=== PATIENT | female | born 1970 | race African-American/Black ===

== ENCOUNTER 2019-06-06 01:15 | Inpatient (IN) | payer MEDICARE, MEDICAID ==
[~2019-06-06] VITALS: Ht 170.2 cm; Wt 112.9 kg
[~2019-06-06 01:15] MED LIST: BENA20TA77 PO; CALC-1 PO; ESIDRIX PO; MELO-106 PO; METO-539 PO; OXYC30TA89 PO; VITAMIN D PO
[2019-06-06] MEDS ORDERED: ONDANSETRON HCL 4MG/2ML INJ IV STA (02:01)
[2019-06-06] MEDS ORDERED: ALBUTEROL (0.083%) 2.5MG/3ML NEB HHN STA (02:01)
[2019-06-06] MEDS ORDERED: IPRATROPIUM BROMIDE (0.02%) 0.5MG/2.5ML NEB HHN STA (02:01)
[2019-06-06] MEDS ORDERED: ASPIRIN 81MG TABLET PO ONE (02:15)
[2019-06-06] MEDS ORDERED: FUROSEMIDE 40MG/4ML VIAL IV ONE (02:15)
[2019-06-06] MEDS ORDERED: NITROGLYCERIN OINT 1GM/INCH UDPKT TD ONE (02:15)
[2019-06-06] MEDS ORDERED: ENALAPRIL 2.5MG/2ML VIAL 2ML IV ONE (02:15)
[2019-06-06 02:23] LABS: BASOPHILS % 1.1 % (0.0-2.0); EOSINOPHILS % 1.8 % (0.0-5.0); HEMATOCRIT. 42.2 % (36.0-48.0); HEMOGLOBIN. 14.2 g/dL (12.0-16.0); LYMPHOCYTES % 24.8 % (20.0-50.0); MEAN CORPUSCULAR HEMOGLOBIN 29.5 pg (28.0-32.0); MEAN CORPUSCULAR VOLUME 87.7 fL (81.0-99.0); MEAN PLATELET VOLUME 8.9 fl (7.4-10.4); MONOCYTES % 7.7 % (2.0-8.0); NEUTROPHILS % 64.6 % (40.0-76.0); PLATELET 258 x1000/uL (130-400); RED BLOOD CELL COUNT 4.81 mill/uL (4.2-5.4); RED CELL DISTRIBUTION WIDTH 14.8 % (11.6-14.6)
[2019-06-06 02:29] LABS: CHLORIDE 107 mEq/L (98-107)
[2019-06-06] MEDS ORDERED: IPRATROPIUM/ALBUTEROL 0.5-3(2.5)MG/3ML NEB INH PRN (06:00)
[2019-06-06] MEDS ORDERED: MAGNESIUM/ALUMINUM HYDROXIDE/SIMETHICONE 30ML UDC PO PRN (06:00)
[2019-06-06] MEDS ORDERED: ONDANSETRON HCL 4MG/2ML INJ IV PRN (06:00)
[2019-06-06] MEDS ORDERED: HYDRALAZINE 20MG/ML VIAL IV PRN (06:00)
[2019-06-06] MEDS ORDERED: GUAIFENESIN 200MG/10ML SUGAR FREE UDC PO PRN (06:00)
[2019-06-06] MEDS ORDERED: DIPHENHYDRAMINE 50MG/ML VIAL IV PRN (06:00)
[2019-06-06] MEDS: ACETAMINOPHEN 325MG TABLET PO PRN (06:52)
[2019-06-06] MEDS: CLONIDINE 0.1MG TABLET PO PRN (07:38)
[2019-06-06 08:00] VITALS: BP 132/78
[2019-06-06] MEDS: LISINOPRIL 10MG TABLET PO SCH ×2 (09:55→21:14)
[2019-06-06] MEDS: AMLODIPINE 5MG TABLET PO SCH ×2 (09:55→21:13)
[2019-06-06] MEDS: FUROSEMIDE 40MG/4ML VIAL IVP SCH (09:56)
[2019-06-06] MEDS: ENOXAPARIN 40MG/0.4ML SYR SUBCUT SCH ×2 (09:56→21:14)
[2019-06-06] MEDS: SODIUM CHLORIDE 0.9% INJ 3ML FLUSH IVF SCH ×3 (09:57→21:14)
[2019-06-06 12:12] VITALS: BP 132/78
[2019-06-06 13:40] LABS: T4 FREE 0.88 ng/dL (0.76-1.46)
[2019-06-06 14:00] LABS: *AMPHETAMINES SCREEN URINE NEGATIVE (NEGATIVE); *BARBITURATES SCREEN URINE NEGATIVE (NEGATIVE); *BENZODIAZEPINES SCREEN URINE NEGATIVE (NEGATIVE); *COCAINE SCREEN URINE NEGATIVE (NEGATIVE)
[2019-06-06 14:01] LABS: CANNABINOID URINE SCREEN NEGATIVE (NEGATIVE); METHADONE URINE SCREEN NEGATIVE (NEGATIVE); OPIATES URINE SCREEN NEGATIVE (NEGATIVE); PHENCYCLIDINE URINE SCREEN NEGATIVE (NEGATIVE)
[2019-06-06 16:00] VITALS: BP 157/89
[2019-06-06 16:31] LABS: CREATINE KINASE MB FRACTION 2.7 ng/mL (0.5-3.6)
[2019-06-06] MEDS ORDERED: DEXTROSE 50% WATER 50ML SYRINGE IV PRN (17:00)
[2019-06-06] MEDS: INSULIN LISPRO 100 UNITS/ML SUBCUT SCH ×2 (17:15→20:55)
[2019-06-06 20:00] VITALS: BP 133/70
[2019-06-06] MEDS: BLOOD SUGAR DIAGNOSTIC STRIP TEST SCH (20:55)
[2019-06-06] MEDS: METHYLPREDNISOLONE SOD SUCC 40 MG/ML VIAL IV SCH (21:14)
[2019-06-06] MEDS: IPRATROPIUM/ALBUTEROL 0.5-3(2.5)MG/3ML NEB HHN SCH (22:40)
[2019-06-07] VITALS (7 sets, daily range): BP systolic 134–160; BP diastolic 71–95
[2019-06-07] MEDS: IPRATROPIUM/ALBUTEROL 0.5-3(2.5)MG/3ML NEB HHN SCH ×4 (00:30→21:00)
[2019-06-07 00:51] LABS: CREATINE KINASE MB FRACTION 2.3 ng/mL (0.5-3.6)
[2019-06-07] MEDS: CLONIDINE 0.1MG TABLET PO PRN (01:01)
[2019-06-07] MEDS: BLOOD SUGAR DIAGNOSTIC STRIP TEST SCH ×4 (07:21→21:20)
[2019-06-07] MEDS: METHYLPREDNISOLONE SOD SUCC 40 MG/ML VIAL IV SCH (07:25)
[2019-06-07] MEDS: SODIUM CHLORIDE 0.9% INJ 3ML FLUSH IVF SCH ×3 (07:27→23:07)
[2019-06-07] MEDS: INSULIN LISPRO 100 UNITS/ML SUBCUT SCH ×5 (07:27→21:28)
[2019-06-07] MEDS: ENOXAPARIN 40MG/0.4ML SYR SUBCUT SCH ×2 (09:11→23:07)
[2019-06-07] MEDS: LISINOPRIL 10MG TABLET PO SCH ×2 (09:12→21:22)
[2019-06-07] MEDS: AMLODIPINE 5MG TABLET PO SCH ×2 (09:12→21:21)
[2019-06-07] MEDS: FUROSEMIDE 40MG/4ML VIAL IVP SCH (09:13)
[2019-06-07 09:14] LABS: CREATINE KINASE MB FRACTION 2.4 ng/mL (0.5-3.6)
[2019-06-07] MEDS ORDERED: BENA20TA10 MT (13:40)
[2019-06-07] MEDS ORDERED: BUDE90AE INH (13:41)
[2019-06-07] MEDS ORDERED: ALBU18HF2 IH (13:43)
[2019-06-07] MEDS: ACETAMINOPHEN 325MG TABLET PO PRN (21:22)
[2019-06-07] MEDS ORDERED: KETOROLAC 30MG/ML VIAL IV PRN (22:45)
[2019-06-08] MEDS: IPRATROPIUM/ALBUTEROL 0.5-3(2.5)MG/3ML NEB HHN SCH ×2 (02:00→13:17)
[2019-06-08 04:09] VITALS: BP 151/88
[2019-06-08] MEDS: BLOOD SUGAR DIAGNOSTIC STRIP TEST SCH ×2 (06:31→11:45)
[2019-06-08] MEDS: SODIUM CHLORIDE 0.9% INJ 3ML FLUSH IVF SCH (06:32)
[2019-06-08] MEDS: INSULIN LISPRO 100 UNITS/ML SUBCUT SCH ×2 (06:32→13:25)
[2019-06-08] MEDS ORDERED: REGADENOSON 0.4 MG/5 ML IV ONE ×2 (07:30→10:23)
[2019-06-08] MEDS: ENOXAPARIN 40MG/0.4ML SYR SUBCUT SCH (09:00)
[2019-06-08] MEDS: LISINOPRIL 10MG TABLET PO SCH (09:00)
[2019-06-08] MEDS: AMLODIPINE 5MG TABLET PO SCH (09:00)
[2019-06-08 16:07] VITALS: BP 144/67
== END 2019-06-08 17:20 | disposition home or self-care (01) | DRG 291 ==
LOC: ER 01:15 → 5WST 04:24 → EDBEDREQ 04:27 → EDBEDREQTM 04:27 → ENRESERV 07:02 → 5WST 08:43
PROVIDERS: ADMIT Internal Medicine; ATTEND Internal Medicine
DX: I11.0 Hypertensive heart disease with heart failure (principal); J96.01 Acute respiratory failure with hypoxia; J84.9 Interstitial pulmonary disease, unspecified; M94.0 Chondrocostal junction syndrome [Tietze]; E66.01 Morbid (severe) obesity due to excess calories; I50.33 Acute on chronic diastolic (congestive) heart failure; E78.5 Hyperlipidemia, unspecified; Z87.891 Personal history of nicotine dependence; M19.90 Unspecified osteoarthritis, unspecified site; J45.909 Unspecified asthma, uncomplicated; I25.10 Atherosclerotic heart disease of native coronary artery without angina pectoris; E11.9 Type 2 diabetes mellitus without complications; J20.9 Acute bronchitis, unspecified; J42 Unspecified chronic bronchitis; Z96.651 Presence of right artificial knee joint; Z68.39 Body mass index [BMI] 39.0-39.9, adult; Z80.1 Family history of malignant neoplasm of trachea, bronchus and lung; Z82.0 Family history of epilepsy and other diseases of the nervous system; Z82.49 Family history of ischemic heart disease and other diseases of the circulatory system; Z83.3 Family history of diabetes mellitus; Z98.891 History of uterine scar from previous surgery; Z79.899 Other long term (current) drug therapy
CPT/HCPCS: 36415; 71045; 78452; 80061; 80305; 82550; 82553; 82962; 83036; 83880; 84439; 84443; 84484; 85379; 93005; 93017; 93306; 93970; 94640; 96374; 96375; 97162; 99291; A9500; J1650; J1815; J1885; J1940; J2405; J2785; J2920; J3490; J7611; J7620

== ENCOUNTER 2019-06-24 15:03 | Inpatient (IN) | payer MEDICARE, MEDICAID ==
[~2019-06-24] VITALS: Ht 157.5 cm; Wt 112.5 kg
[~2019-06-24 15:03] MED LIST changes: +ALBU18HF2 IH; +BENA20TA10 MT; -BENA20TA77 PO; +BUDE90AE INH; -CALC-1 PO; -ESIDRIX PO; -MELO-106 PO; -OXYC30TA89 PO; -VITAMIN D PO
[2019-06-24] MEDS ORDERED: PREDNISONE 20MG TABLET PO STA (15:31)
[2019-06-24] MEDS ORDERED: IPRATROPIUM BROMIDE (0.02%) 0.5MG/2.5ML NEB HHN STA (15:31)
[2019-06-24] MEDS ORDERED: METHYLPREDNISOLONE SOD SUCC 125 MG/2 ML VIAL IV ONE (15:45)
[2019-06-24] MEDS ORDERED: ALBUTEROL (0.083%) 2.5MG/3ML NEB HHN SCH (16:00)
[2019-06-24 16:15] LABS: BASOPHILS % 1.5 % (0.0-2.0); EOSINOPHILS % 4.3 % (0.0-5.0); HEMATOCRIT. 38.5 % (36.0-48.0); HEMOGLOBIN. 12.8 g/dL (12.0-16.0); LYMPHOCYTES % 31.3 % (20.0-50.0); MEAN CORPUSCULAR HEMOGLOBIN 29.1 pg (28.0-32.0); MEAN CORPUSCULAR VOLUME 87.8 fL (81.0-99.0); MEAN PLATELET VOLUME 8.9 fl (7.4-10.4); MONOCYTES % 10.6 % (2.0-8.0); NEUTROPHILS % 52.3 % (40.0-76.0); PLATELET 254 x1000/uL (130-400); RED BLOOD CELL COUNT 4.39 mill/uL (4.2-5.4); RED CELL DISTRIBUTION WIDTH 14.6 % (11.6-14.6)
[2019-06-24 16:20] LABS: CHLORIDE 111 mEq/L (98-107)
[2019-06-24] MEDS ORDERED: ACETAMINOPHEN 325MG TABLET PO PRN (16:45)
[2019-06-24] MEDS ORDERED: GUAIFENESIN 200MG/10ML SUGAR FREE UDC PO PRN (16:45)
[2019-06-24] MEDS ORDERED: DOCUSATE SODIUM 100MG CAPSULE PO PRN (16:45)
[2019-06-24] MEDS ORDERED: ONDANSETRON HCL 4MG/2ML INJ IV PRN (16:45)
[2019-06-24] MEDS ORDERED: DIPHENHYDRAMINE 50MG/ML VIAL IV PRN (16:45)
[2019-06-24] MEDS ORDERED: IPRATROPIUM/ALBUTEROL 0.5-3(2.5)MG/3ML NEB INH PRN (16:45)
[2019-06-24] MEDS ORDERED: MAGNESIUM/ALUMINUM HYDROXIDE/SIMETHICONE 30ML UDC PO PRN (16:45)
[2019-06-24 17:11] LABS: PHOSPHORUS 2.4 mg/dL (2.5-4.9)
[2019-06-24] MEDS: CLONIDINE 0.1MG TABLET PO PRN (17:56)
[2019-06-24 18:55] VITALS: BP 109/91
[2019-06-24 20:00] VITALS: BP 181/90
[2019-06-24] MEDS ORDERED: DEXTROSE 50% WATER 50ML SYRINGE IV PRN (20:15)
[2019-06-24] MEDS: ENOXAPARIN 30MG/0.3ML SYR SUBCUT SCH (21:00)
[2019-06-24] MEDS: INSULIN LISPRO 100 UNITS/ML SUBCUT SCH (21:00)
[2019-06-24] MEDS: BLOOD SUGAR DIAGNOSTIC STRIP TEST SCH (21:17)
[2019-06-24 22:11] VITALS: BP 109/81
[2019-06-25] VITALS (7 sets, daily range): BP systolic 142–201; BP diastolic 75–101
[2019-06-25 00:17] LABS: CREATINE KINASE MB FRACTION 1.8 ng/mL (0.5-3.6)
[2019-06-25] MEDS: BLOOD SUGAR DIAGNOSTIC STRIP TEST SCH ×4 (06:27→20:44)
[2019-06-25 06:30] LABS: BASOPHILS % 0.1 % (0.0-2.0); HEMATOCRIT. 39.8 % (36.0-48.0); HEMOGLOBIN. 13.3 g/dL (12.0-16.0); LYMPHOCYTES % 8.9 % (20.0-50.0); MEAN CORPUSCULAR HEMOGLOBIN 29.3 pg (28.0-32.0); MEAN CORPUSCULAR VOLUME 87.7 fL (81.0-99.0); MEAN PLATELET VOLUME 9.4 fl (7.4-10.4); MONOCYTES % 2.2 % (2.0-8.0); NEUTROPHILS % 88.8 % (40.0-76.0); PLATELET 296 x1000/uL (130-400); RED BLOOD CELL COUNT 4.54 mill/uL (4.2-5.4); RED CELL DISTRIBUTION WIDTH 14.6 % (11.6-14.6)
[2019-06-25] MEDS: INSULIN LISPRO 100 UNITS/ML SUBCUT SCH ×4 (06:42→20:43)
[2019-06-25] MEDS: HYDROCODONE/ACETAMINOPHEN 5/325MG TABLET PO PRN ×2 (06:59→11:34)
[2019-06-25 07:08] LABS: CHLORIDE 106 mEq/L (98-107)
[2019-06-25 07:17] LABS: LDL CHOLESTEROL 123 mg/dL (5-100)
[2019-06-25 07:20] LABS: CREATINE KINASE 159 IU/L (26-192)
[2019-06-25 07:21] LABS: HDL CHOLESTEROL 59 mg/dL (40-59)
[2019-06-25 07:23] LABS: CREATINE KINASE MB FRACTION 2.1 ng/mL (0.5-3.6)
[2019-06-25] MEDS: CLONIDINE 0.1MG TABLET PO PRN ×2 (08:16→17:56)
[2019-06-25] MEDS: FUROSEMIDE 40MG/4ML VIAL IV SCH (08:17)
[2019-06-25] MEDS: ENOXAPARIN 30MG/0.3ML SYR SUBCUT SCH ×2 (08:17→20:44)
[2019-06-25] MEDS: GUAIFENESIN 600MG ER TABLET PO SCH ×2 (13:11→20:42)
[2019-06-25] MEDS: BUDESONIDE 0.5MG/2ML NEB HHN SCH (19:49)
[2019-06-25] MEDS: IPRATROPIUM/ALBUTEROL 0.5-3(2.5)MG/3ML NEB HHN PRN (19:49)
[2019-06-26] VITALS: BP 156/78
[2019-06-26 04:00] VITALS: BP 151/89
[2019-06-26] MEDS: INSULIN LISPRO 100 UNITS/ML SUBCUT SCH ×4 (06:18→21:46)
[2019-06-26] MEDS: BLOOD SUGAR DIAGNOSTIC STRIP TEST SCH ×4 (06:18→21:47)
[2019-06-26 07:27] LABS: BASOPHILS % 0.7 % (0.0-2.0); EOSINOPHILS % 1.1 % (0.0-5.0); HEMATOCRIT. 38.9 % (36.0-48.0); HEMOGLOBIN. 13.1 g/dL (12.0-16.0); LYMPHOCYTES % 27.5 % (20.0-50.0); MEAN CORPUSCULAR HEMOGLOBIN 29.4 pg (28.0-32.0); MEAN CORPUSCULAR VOLUME 87.6 fL (81.0-99.0); MEAN PLATELET VOLUME 9.2 fl (7.4-10.4); MONOCYTES % 7.2 % (2.0-8.0); NEUTROPHILS % 63.5 % (40.0-76.0); PLATELET 282 x1000/uL (130-400); RED BLOOD CELL COUNT 4.45 mill/uL (4.2-5.4); RED CELL DISTRIBUTION WIDTH 14.6 % (11.6-14.6)
[2019-06-26 07:30] LABS: CHLORIDE 108 mEq/L (98-107)
[2019-06-26 08:00] VITALS: BP 148/70
[2019-06-26] MEDS: BUDESONIDE 0.5MG/2ML NEB HHN SCH (08:46)
[2019-06-26] MEDS: ENOXAPARIN 30MG/0.3ML SYR SUBCUT SCH ×2 (09:00→21:44)
[2019-06-26] MEDS: GUAIFENESIN 600MG ER TABLET PO SCH ×2 (09:30→21:44)
[2019-06-26] MEDS: FUROSEMIDE 40MG/4ML VIAL IV SCH (09:30)
[2019-06-26] MEDS: HYDROCODONE/ACETAMINOPHEN 5/325MG TABLET PO PRN ×2 (11:09→17:10)
[2019-06-26 12:00] VITALS: BP 155/74
[2019-06-26] MEDS: VERAPAMIL HCL 80 MG TABLET PO SCH ×2 (14:40→21:44)
[2019-06-26 16:00] VITALS: BP 156/83
[2019-06-26 16:30] LABS: CLARITY URINE CLEAR (CLEAR); COLOR URINE YELLOW (YELLOW); KETONES URINE NEGATIVE (NEGATIVE); LEUKOCYTE ESTERASE URINE NEGATIVE (NEGATIVE); NITRITE URINE NEGATIVE (NEGATIVE); OCCULT BLOOD URINE NEGATIVE (NEGATIVE); PROTEIN URINE NEGATIVE (NEGATIVE); SPECIFIC GRAVITY URINE 1.007 (1.005-1.030); UROBILINOGEN URINE 0.2 E.U./dL (0.2-1.0)
[2019-06-26 16:55] LABS: *AMPHETAMINES SCREEN URINE NEGATIVE (NEGATIVE); *BARBITURATES SCREEN URINE NEGATIVE (NEGATIVE); *BENZODIAZEPINES SCREEN URINE NEGATIVE (NEGATIVE); *COCAINE SCREEN URINE NEGATIVE (NEGATIVE); METHADONE URINE SCREEN NEGATIVE (NEGATIVE); OPIATES URINE SCREEN PRESUMTIVE POSITIVE (NEGATIVE)
[2019-06-26 16:56] LABS: CANNABINOID URINE SCREEN NEGATIVE (NEGATIVE); PHENCYCLIDINE URINE SCREEN NEGATIVE (NEGATIVE)
[2019-06-26] MEDS: METHYLPREDNISOLONE SOD SUCC 40 MG/ML VIAL IV SCH (17:09)
[2019-06-26 19:32] LABS: CREATINE KINASE MB FRACTION 1.2 ng/mL (0.5-3.6)
[2019-06-26 20:00] VITALS: BP 165/99
[2019-06-26] MEDS: CLONIDINE 0.1MG TABLET PO PRN (21:44)
[2019-06-27] VITALS: BP 125/61
[2019-06-27] MEDS: METHYLPREDNISOLONE SOD SUCC 40 MG/ML VIAL IV SCH ×2 (00:29→08:08)
[2019-06-27 04:00] VITALS: BP 157/91
[2019-06-27] MEDS: BLOOD SUGAR DIAGNOSTIC STRIP TEST SCH ×3 (06:32→20:28)
[2019-06-27] MEDS: VERAPAMIL HCL 80 MG TABLET PO SCH (06:32)
[2019-06-27] MEDS: INSULIN LISPRO 100 UNITS/ML SUBCUT SCH ×4 (06:35→21:25)
[2019-06-27 06:38] LABS: BASOPHILS % 0.3 % (0.0-2.0); HEMATOCRIT. 42.9 % (36.0-48.0); HEMOGLOBIN. 14.6 g/dL (12.0-16.0); MEAN CORPUSCULAR HEMOGLOBIN 29.6 pg (28.0-32.0); MEAN CORPUSCULAR VOLUME 86.8 fL (81.0-99.0); MEAN PLATELET VOLUME 8.9 fl (7.4-10.4); MONOCYTES % 1.7 % (2.0-8.0); PLATELET 331 x1000/uL (130-400); RED BLOOD CELL COUNT 4.94 mill/uL (4.2-5.4); RED CELL DISTRIBUTION WIDTH 14.2 % (11.6-14.6)
[2019-06-27 07:27] LABS: CHLORIDE 104 mEq/L (98-107)
[2019-06-27 08:00] VITALS: BP 150/87
[2019-06-27] MEDS: GUAIFENESIN 600MG ER TABLET PO SCH ×2 (08:20→21:24)
[2019-06-27] MEDS: FUROSEMIDE 40MG/4ML VIAL IV SCH (08:21)
[2019-06-27] MEDS: ENOXAPARIN 30MG/0.3ML SYR SUBCUT SCH ×2 (08:21→21:23)
[2019-06-27 12:00] VITALS: BP 167/89
[2019-06-27] MEDS: CLONIDINE 0.1MG TABLET PO PRN ×2 (12:02→17:50)
[2019-06-27] MEDS: VERAPAMIL HCL 120MG TABLET PO SCH ×2 (13:29→21:24)
[2019-06-27 16:00] VITALS: BP 173/91
[2019-06-27] MEDS: HYDROCODONE/ACETAMINOPHEN 5/325MG TABLET PO PRN ×2 (17:02→23:05)
[2019-06-27] MEDS ORDERED: DEXTROSE 50% WATER 50ML SYRINGE IV PRN (17:15)
[2019-06-27 20:00] VITALS: BP 153/61
[2019-06-27] MEDS ORDERED: BLOOD SUGAR DIAGNOSTIC STRIP TEST SCH (21:00)
[2019-06-28] VITALS: BP 164/86
[2019-06-28 04:00] VITALS: BP 137/72
[2019-06-28 06:25] LABS: CHLORIDE 105 mEq/L (98-107)
[2019-06-28 06:33] LABS: BASOPHILS % 0.2 % (0.0-2.0); HEMATOCRIT. 42.5 % (36.0-48.0); HEMOGLOBIN. 14.2 g/dL (12.0-16.0); LYMPHOCYTES % 7.5 % (20.0-50.0); MEAN CORPUSCULAR VOLUME 86.8 fL (81.0-99.0); MEAN PLATELET VOLUME 9.2 fl (7.4-10.4); MONOCYTES % 8.7 % (2.0-8.0); NEUTROPHILS % 83.6 % (40.0-76.0); PLATELET 326 x1000/uL (130-400); RED CELL DISTRIBUTION WIDTH 14.2 % (11.6-14.6)
[2019-06-28] MEDS: BLOOD SUGAR DIAGNOSTIC STRIP TEST SCH ×2 (06:33→11:45)
[2019-06-28] MEDS: VERAPAMIL HCL 120MG TABLET PO SCH ×2 (06:42→14:16)
[2019-06-28] MEDS: HYDROCODONE/ACETAMINOPHEN 5/325MG TABLET PO PRN (06:42)
[2019-06-28] MEDS: INSULIN LISPRO 100 UNITS/ML SUBCUT SCH ×2 (06:47→12:15)
[2019-06-28 08:00] VITALS: BP 126/59
[2019-06-28] MEDS: FUROSEMIDE 40MG/4ML VIAL IV SCH (08:58)
[2019-06-28] MEDS: ENOXAPARIN 30MG/0.3ML SYR SUBCUT SCH (08:59)
[2019-06-28] MEDS: GUAIFENESIN 600MG ER TABLET PO SCH (08:59)
[2019-06-28] MEDS ORDERED: METHYLPREDNISOLONE SOD SUCC 40 MG/ML VIAL IV SCH (09:00)
[2019-06-28] MEDS: IPRATROPIUM/ALBUTEROL 0.5-3(2.5)MG/3ML NEB HHN PRN (11:24)
[2019-06-28 12:00] VITALS: BP 143/78
[2019-06-28 13:51] VITALS: BP 143/78
[2019-06-28 14:00] VITALS: BP 143/70
== END 2019-06-28 16:46 | disposition home or self-care (01) | DRG 189 ==
LOC: ER 15:03 → 5WST 16:24 → EDBEDREQ 16:27 → ENRESERV 17:48 → 5WST 19:09
PROVIDERS: ADMIT Internal Medicine; ATTEND Internal Medicine
DX: J96.00 Acute respiratory failure, unspecified whether with hypoxia or hypercapnia (principal); I50.33 Acute on chronic diastolic (congestive) heart failure; J44.1 Chronic obstructive pulmonary disease with (acute) exacerbation; Z68.42 Body mass index [BMI] 45.0-49.9, adult; I11.0 Hypertensive heart disease with heart failure; I27.20 Pulmonary hypertension, unspecified; E66.01 Morbid (severe) obesity due to excess calories; F17.210 Nicotine dependence, cigarettes, uncomplicated; M19.90 Unspecified osteoarthritis, unspecified site; F12.90 Cannabis use, unspecified, uncomplicated; I25.10 Atherosclerotic heart disease of native coronary artery without angina pectoris; J40 Bronchitis, not specified as acute or chronic; F14.90 Cocaine use, unspecified, uncomplicated; E11.65 Type 2 diabetes mellitus with hyperglycemia; K76.1 Chronic passive congestion of liver; Z79.51 Long term (current) use of inhaled steroids; Z79.899 Other long term (current) drug therapy; Z98.891 History of uterine scar from previous surgery
CPT/HCPCS: 36415; 71045; 80048; 80061; 80305; 82550; 82553; 82962; 83036; 83735; 83880; 84100; 84443; 84484; 85379; 93005; 93970; 94640; 96374; 97162; 97166; 97530; 97535; 99285; J1650; J1815; J1940; J2920; J2930; J7620; J7626

== ENCOUNTER 2019-08-13 18:41 | Inpatient (IN) | payer MEDICARE, MEDICAID ==
[~2019-08-13] VITALS: Ht 170.2 cm; Wt 117.5 kg
[2019-08-13] MEDS ORDERED: METHYLPREDNISOLONE SOD SUCC 125 MG/2 ML VIAL IV STA (19:21)
[2019-08-13] MEDS ORDERED: IPRATROPIUM BROMIDE (0.02%) 0.5MG/2.5ML NEB HHN STA (19:21)
[2019-08-13] MEDS ORDERED: ALBUTEROL (0.083%) 2.5MG/3ML NEB HHN STA (19:21)
[2019-08-13 19:56] LABS: BASOPHILS % 1.5 % (0.0-2.0); EOSINOPHILS % 3.1 % (0.0-5.0); HEMATOCRIT. 46.4 % (36.0-48.0); HEMOGLOBIN. 15.8 g/dL (12.0-16.0); MEAN CORPUSCULAR HEMOGLOBIN 29.6 pg (28.0-32.0); MEAN PLATELET VOLUME 8.5 fl (7.4-10.4); MONOCYTES % 10.1 % (2.0-8.0); NEUTROPHILS % 46.3 % (40.0-76.0); PLATELET 274 x1000/uL (130-400); RED BLOOD CELL COUNT 5.33 mill/uL (4.2-5.4)
[2019-08-13 20:01] LABS: CHLORIDE 105 mEq/L (98-107)
[2019-08-13] MEDS ORDERED: NITROGLYCERIN OINT 1GM/INCH UDPKT TD ONE (20:45)
[2019-08-13] MEDS ORDERED: GUAIFENESIN 200MG/10ML SUGAR FREE UDC PO PRN (22:15)
[2019-08-13] MEDS ORDERED: MAGNESIUM/ALUMINUM HYDROXIDE/SIMETHICONE 30ML UDC PO PRN (22:15)
[2019-08-13] MEDS ORDERED: IPRATROPIUM/ALBUTEROL 0.5-3(2.5)MG/3ML NEB HHN PRN (22:15)
[2019-08-13] MEDS ORDERED: ONDANSETRON HCL 4MG/2ML INJ IV PRN (22:15)
[2019-08-13] MEDS ORDERED: ACETAMINOPHEN 325MG TABLET PO PRN (22:15)
[2019-08-13] MEDS ORDERED: NA PHOS,M-B/NA PHOS,DI-BA ENEMA 118ML PR PRN (22:15)
[2019-08-13] MEDS ORDERED: DOCUSATE SODIUM 100MG CAPSULE PO PRN (22:15)
[2019-08-13] MEDS ORDERED: LORAZEPAM 2MG/ML CPJ IV PRN (22:15)
[2019-08-13] MEDS ORDERED: DIPHENHYDRAMINE 50MG/ML VIAL IV PRN (22:15)
[2019-08-13] MEDS ORDERED: HYDRALAZINE 20MG/ML VIAL IV PRN (22:29)
[2019-08-13] MEDS ORDERED: MORPHINE SULFATE 2 MG/ML CPJ (NOT FOR IM USE) IV PRN (22:35)
[2019-08-13 23:59] VITALS: BP 174/96
[2019-08-14] MEDS: CLONIDINE 0.1MG TABLET PO PRN (00:52)
[2019-08-14 04:00] VITALS: BP 162/84
[2019-08-14] MEDS ORDERED: HYDRALAZINE 20MG/ML VIAL IV PRN (04:30)
[2019-08-14] MEDS: METHYLPREDNISOLONE SOD SUCC 125 MG/2 ML VIAL IV SCH ×2 (06:17→13:58)
[2019-08-14] MEDS: SODIUM CHLORIDE 0.9% INJ 3ML FLUSH IVF SCH ×3 (06:18→21:04)
[2019-08-14 06:20] LABS: BASOPHILS % 0.2 % (0.0-2.0); HEMATOCRIT. 43.8 % (36.0-48.0); HEMOGLOBIN. 14.8 g/dL (12.0-16.0); LYMPHOCYTES % 10.6 % (20.0-50.0); MEAN CORPUSCULAR HEMOGLOBIN 29.3 pg (28.0-32.0); MEAN CORPUSCULAR VOLUME 86.8 fL (81.0-99.0); MEAN PLATELET VOLUME 9.1 fl (7.4-10.4); MONOCYTES % 0.8 % (2.0-8.0); NEUTROPHILS % 88.4 % (40.0-76.0); PLATELET 271 x1000/uL (130-400); RED BLOOD CELL COUNT 5.04 mill/uL (4.2-5.4); RED CELL DISTRIBUTION WIDTH 15.1 % (11.6-14.6)
[2019-08-14 06:24] LABS: CHLORIDE 103 mEq/L (98-107)
[2019-08-14 06:38] LABS: CREATINE KINASE MB FRACTION < 1.0 ng/mL (0.5-3.6)
[2019-08-14 06:39] LABS: T4 FREE 0.95 ng/dL (0.76-1.46)
[2019-08-14 06:41] LABS: CREATINE KINASE 120 IU/L (26-192); LDL CHOLESTEROL 126 mg/dL (5-100)
[2019-08-14 06:42] LABS: HDL CHOLESTEROL 54 mg/dL (40-59)
[2019-08-14 08:00] VITALS: BP 151/75
[2019-08-14] MEDS: ENOXAPARIN 30MG/0.3ML SYR SUBCUT SCH ×2 (11:09→20:22)
[2019-08-14] MEDS: HYDROCODONE/ACETAMINOPHEN 10/325MG TABLET PO PRN ×2 (11:20→20:21)
[2019-08-14 12:00] VITALS: BP 178/83
[2019-08-14] MEDS: IPRATROPIUM/ALBUTEROL 0.5-3(2.5)MG/3ML NEB HHN SCH ×2 (15:14→20:49)
[2019-08-14 16:00] VITALS: BP 165/85
[2019-08-14 18:18] LABS: CREATINE KINASE 88 IU/L (26-192)
[2019-08-14 20:00] VITALS: BP 197/109
[2019-08-14] MEDS: PREDNISONE 20MG TABLET PO SCH (20:08)
[2019-08-14] MEDS: METOPROLOL TARTRATE 50MG TABLET PO SCH (20:21)
[2019-08-14] MEDS: HYDRALAZINE HCL 50MG TABLET PO SCH (21:03)
[2019-08-14 21:06] LABS: T4 FREE 0.82 ng/dL (0.76-1.46)
[2019-08-15] VITALS: BP 150/74
[2019-08-15] MEDS: IPRATROPIUM/ALBUTEROL 0.5-3(2.5)MG/3ML NEB HHN SCH ×5 (01:04→17:03)
[2019-08-15 04:00] VITALS: BP 160/87
[2019-08-15] MEDS: SODIUM CHLORIDE 0.9% INJ 3ML FLUSH IVF SCH ×2 (05:57→13:20)
[2019-08-15] MEDS: HYDRALAZINE HCL 50MG TABLET PO SCH ×2 (05:57→15:02)
[2019-08-15 08:00] VITALS: BP 169/87
[2019-08-15] MEDS: PREDNISONE 20MG TABLET PO SCH ×3 (09:31→18:43)
[2019-08-15] MEDS: ENOXAPARIN 30MG/0.3ML SYR SUBCUT SCH (09:31)
[2019-08-15] MEDS: METOPROLOL TARTRATE 50MG TABLET PO SCH (09:33)
[2019-08-15 12:00] VITALS: BP 177/95
[2019-08-15] MEDS: HYDROCODONE/ACETAMINOPHEN 10/325MG TABLET PO PRN ×2 (13:12→17:23)
[2019-08-15] MEDS: CLONIDINE 0.1MG TABLET PO PRN (13:22)
[2019-08-15 16:00] VITALS: BP 155/93
[2019-08-15 19:07] VITALS: BP 155/93
== END 2019-08-15 20:05 | disposition home or self-care (01) | DRG 189 ==
LOC: ER 18:44 → 7WST 21:35 → EDBEDREQ 21:38 → EDBEDREQTM 21:38 → ENRESERV 21:59 → 7WST 08-14 00:40
PROVIDERS: ADMIT Internal Medicine; ATTEND Internal Medicine
DX: J96.00 Acute respiratory failure, unspecified whether with hypoxia or hypercapnia (principal); J44.1 Chronic obstructive pulmonary disease with (acute) exacerbation; I50.32 Chronic diastolic (congestive) heart failure; Z68.41 Body mass index [BMI] 40.0-44.9, adult; E66.01 Morbid (severe) obesity due to excess calories; E11.9 Type 2 diabetes mellitus without complications; F10.10 Alcohol abuse, uncomplicated; E78.5 Hyperlipidemia, unspecified; F17.210 Nicotine dependence, cigarettes, uncomplicated; K76.1 Chronic passive congestion of liver; I11.0 Hypertensive heart disease with heart failure; I25.10 Atherosclerotic heart disease of native coronary artery without angina pectoris; M19.90 Unspecified osteoarthritis, unspecified site; Z98.891 History of uterine scar from previous surgery; Z79.51 Long term (current) use of inhaled steroids; Z79.899 Other long term (current) drug therapy; Z71.6 Tobacco abuse counseling
CPT/HCPCS: 36415; 71045; 80061; 82550; 82553; 83036; 83880; 84439; 84443; 84484; 85379; 93005; 93306; 93970; 94640; 99285; J0360; J1650; J2930; J7512; J7611; J7620

== ENCOUNTER 2019-08-26 08:50 | Inpatient (IN) | payer MEDICARE, MEDICAID ==
[~2019-08-26] VITALS: Ht 170.2 cm; Wt 139.9 kg
[2019-08-26] MEDS ORDERED: IPRATROPIUM BROMIDE (0.02%) 0.5MG/2.5ML NEB HHN STA (09:29)
[2019-08-26] MEDS ORDERED: METHYLPREDNISOLONE SOD SUCC 125 MG/2 ML VIAL IV STA (09:29)
[2019-08-26] MEDS ORDERED: ALBUTEROL (0.083%) 2.5MG/3ML NEB HHN STA (09:29)
[2019-08-26] MEDS ORDERED: ASPIRIN 81MG TABLET PO ONE (09:30)
[2019-08-26 09:48] LABS: BASOPHILS % 0.5 % (0.0-2.0); EOSINOPHILS % 0.9 % (0.0-5.0); HEMATOCRIT. 41.1 % (36.0-48.0); HEMOGLOBIN. 13.6 g/dL (12.0-16.0); LYMPHOCYTES % 18.9 % (20.0-50.0); MEAN CORPUSCULAR HEMOGLOBIN 29.4 pg (28.0-32.0); MEAN CORPUSCULAR VOLUME 88.6 fL (81.0-99.0); MEAN PLATELET VOLUME 9.2 fl (7.4-10.4); MONOCYTES % 6.3 % (2.0-8.0); NEUTROPHILS % 73.4 % (40.0-76.0); PLATELET 239 x1000/uL (130-400); RED BLOOD CELL COUNT 4.63 mill/uL (4.2-5.4); RED CELL DISTRIBUTION WIDTH 15.4 % (11.6-14.6)
[2019-08-26 09:54] LABS: CHLORIDE 109 mEq/L (98-107)
[2019-08-26 09:57] LABS: PARTIAL THROMBOPLASTIN TIME 29.4 sec (23.4-31.0)
[2019-08-26] MEDS ORDERED: ACETAMINOPHEN 325MG TABLET PO ONE (10:15)
[2019-08-26] MEDS ORDERED: CLONIDINE 0.2MG TABLET PO ONE (10:15)
[2019-08-26] MEDS ORDERED: MORPHINE SULFATE 4 MG/ML CPJ (NOT FOR IM USE) IV STA (12:41)
[2019-08-26] MEDS ORDERED: ONDANSETRON HCL 4MG/2ML INJ IV STA (12:41)
[2019-08-26 16:00] VITALS: BP 163/78
[2019-08-26 16:25] VITALS: BP 163/78
[2019-08-26] MEDS ORDERED: ACETAMINOPHEN 325MG TABLET PO PRN (18:00)
[2019-08-26] MEDS ORDERED: ONDANSETRON HCL 4MG/2ML INJ IV PRN (18:00)
[2019-08-26] MEDS ORDERED: GUAIFENESIN 200MG/10ML SUGAR FREE UDC PO PRN (18:00)
[2019-08-26] MEDS ORDERED: LORAZEPAM 2MG/ML CPJ IV PRN (18:00)
[2019-08-26] MEDS ORDERED: DOCUSATE SODIUM 100MG CAPSULE PO PRN (18:00)
[2019-08-26] MEDS ORDERED: DIPHENHYDRAMINE 50MG/ML VIAL IV PRN (18:00)
[2019-08-26] MEDS ORDERED: MAGNESIUM/ALUMINUM HYDROXIDE/SIMETHICONE 30ML UDC PO PRN (18:00)
[2019-08-26] MEDS ORDERED: NA PHOS,M-B/NA PHOS,DI-BA ENEMA 118ML PR PRN (18:00)
[2019-08-26] MEDS: METHYLPREDNISOLONE SOD SUCC 125 MG/2 ML VIAL IV SCH (18:35)
[2019-08-26] MEDS: CLONIDINE 0.1MG TABLET PO PRN ×2 (18:36→20:09)
[2019-08-26] MEDS ORDERED: FURO-151 MT (18:49)
[2019-08-26 20:00] VITALS: BP 187/84
[2019-08-26 20:01] LABS: CHLORIDE 106 mEq/L (98-107)
[2019-08-26] MEDS: LEVOFLOXACIN 500MG PREMIX 100 ML IV SCH (20:08)
[2019-08-26] MEDS: ENOXAPARIN 40MG/0.4ML SYR SUBCUT SCH (20:09)
[2019-08-26] MEDS: MORPHINE SULFATE 2 MG/ML CPJ (NOT FOR IM USE) IV PRN (20:13)
[2019-08-26] MEDS: IPRATROPIUM/ALBUTEROL 0.5-3(2.5)MG/3ML NEB NEB PRN (20:38)
[2019-08-26 23:56] VITALS: BP 161/88
[2019-08-27] MEDS: IPRATROPIUM/ALBUTEROL 0.5-3(2.5)MG/3ML NEB NEB PRN (00:01)
[2019-08-27] MEDS ORDERED: DEXTROSE 50% WATER 50ML SYRINGE IV PRN (00:15)
[2019-08-27] MEDS: METHYLPREDNISOLONE SOD SUCC 125 MG/2 ML VIAL IV SCH ×3 (00:29→12:33)
[2019-08-27] MEDS: CLONIDINE 0.1MG TABLET PO PRN ×4 (00:35→17:48)
[2019-08-27 04:00] VITALS: BP 187/96
[2019-08-27] MEDS: BLOOD SUGAR DIAGNOSTIC STRIP TEST SCH ×4 (06:22→21:01)
[2019-08-27] MEDS: INSULIN LISPRO 100 UNITS/ML SUBCUT SCH ×4 (06:48→20:10)
[2019-08-27 07:08] LABS: HEMOGLOBIN. 12.8 g/dL (12.0-16.0); MEAN CORPUSCULAR HEMOGLOBIN 29.4 pg (28.0-32.0); MEAN CORPUSCULAR VOLUME 89.4 fL (81.0-99.0); MEAN PLATELET VOLUME 9.8 fl (7.4-10.4); PLATELET 234 x1000/uL (130-400); RED BLOOD CELL COUNT 4.37 mill/uL (4.2-5.4); RED CELL DISTRIBUTION WIDTH 15.6 % (11.6-14.6)
[2019-08-27 07:34] LABS: CHLORIDE 105 mEq/L (98-107)
[2019-08-27 07:43] LABS: LDL CHOLESTEROL 118 mg/dL (5-100)
[2019-08-27 07:44] LABS: HDL CHOLESTEROL 62 mg/dL (40-59)
[2019-08-27 08:00] VITALS: BP 178/89
[2019-08-27] MEDS: ENOXAPARIN 40MG/0.4ML SYR SUBCUT SCH ×2 (08:44→22:00)
[2019-08-27] MEDS: ASPIRIN 81MG EC TABLET PO SCH (08:44)
[2019-08-27] MEDS: HYDROCODONE/ACETAMINOPHEN 5/325MG TABLET PO PRN ×2 (10:20→14:14)
[2019-08-27 12:00] VITALS: BP 169/95
[2019-08-27] MEDS: FUROSEMIDE 40MG TABLET PO SCH (14:48)
[2019-08-27] MEDS: PREDNISONE 20MG TABLET PO SCH ×2 (14:48→21:58)
[2019-08-27] MEDS: MORPHINE SULFATE 2 MG/ML CPJ (NOT FOR IM USE) IV PRN ×2 (15:15→22:22)
[2019-08-27] MEDS: INSULIN GLARGINE UD 100 UNITS/ML SYR SUBCUT SCH (15:25)
[2019-08-27 16:00] VITALS: BP 180/92
[2019-08-27 16:07] LABS: PLATELET ESTIMATE NORMAL
[2019-08-27] MEDS: IPRATROPIUM/ALBUTEROL 0.5-3(2.5)MG/3ML NEB HHN SCH ×3 (16:13→23:45)
[2019-08-27 20:00] VITALS: BP 198/107
[2019-08-27] MEDS: LEVOFLOXACIN 500MG PREMIX 100 ML IV SCH (20:05)
[2019-08-27] MEDS ORDERED: CLONIDINE 0.3MG TABLET PO PRN (21:15)
[2019-08-27] MEDS ORDERED: INSULIN GLARGINE UD 100 UNITS/ML SYR SUBCUT SCH (22:30)
[2019-08-27] MEDS: HYDRALAZINE HCL 50MG TABLET PO SCH (22:57)
[2019-08-27] MEDS: METOPROLOL TARTRATE 50MG TABLET PO SCH (22:57)
[2019-08-28] VITALS: BP 179/91
[2019-08-28] MEDS: IPRATROPIUM/ALBUTEROL 0.5-3(2.5)MG/3ML NEB HHN SCH ×3 (03:59→12:28)
[2019-08-28 04:21] VITALS: BP 183/107
[2019-08-28] MEDS: HYDROCODONE/ACETAMINOPHEN 5/325MG TABLET PO PRN (06:12)
[2019-08-28] MEDS: PREDNISONE 20MG TABLET PO SCH ×2 (06:12→14:03)
[2019-08-28] MEDS: HYDRALAZINE HCL 50MG TABLET PO SCH (06:12)
[2019-08-28] MEDS: BLOOD SUGAR DIAGNOSTIC STRIP TEST SCH ×2 (06:27→11:45)
[2019-08-28] MEDS: INSULIN LISPRO 100 UNITS/ML SUBCUT SCH ×2 (06:31→12:14)
[2019-08-28 07:05] LABS: CHLORIDE 104 mEq/L (98-107)
[2019-08-28 07:11] LABS: HEMATOCRIT. 39.1 % (36.0-48.0); HEMOGLOBIN. 12.7 g/dL (12.0-16.0); MEAN CORPUSCULAR HEMOGLOBIN 29.1 pg (28.0-32.0); MEAN CORPUSCULAR VOLUME 89.5 fL (81.0-99.0); MEAN PLATELET VOLUME 9.7 fl (7.4-10.4); PLATELET 240 x1000/uL (130-400); RED BLOOD CELL COUNT 4.37 mill/uL (4.2-5.4); RED CELL DISTRIBUTION WIDTH 15.7 % (11.6-14.6)
[2019-08-28 07:30] VITALS: BP 186/96
[2019-08-28] MEDS: ASPIRIN 81MG EC TABLET PO SCH (08:13)
[2019-08-28] MEDS: FUROSEMIDE 40MG TABLET PO SCH (08:13)
[2019-08-28] MEDS: ENOXAPARIN 40MG/0.4ML SYR SUBCUT SCH (08:13)
[2019-08-28] MEDS: METOPROLOL TARTRATE 50MG TABLET PO SCH (08:13)
[2019-08-28] MEDS ORDERED: AMLODIPINE 10MG TABLET PO SCH (09:00)
[2019-08-28] MEDS: INSULIN GLARGINE UD 100 UNITS/ML SYR SUBCUT SCH (09:56)
[2019-08-28 12:00] VITALS: BP 172/89
[2019-08-28 13:54] VITALS: BP 172/89
[2019-08-28] MEDS ORDERED: HYDRALAZINE HCL 100MG TABLET PO SCH (14:00)
[2019-08-28 17:29] LABS: PLATELET ESTIMATE NORMAL
== END 2019-08-28 16:00 | disposition home or self-care (01) | DRG 291 ==
LOC: ER 08:50 → 8WST 11:08 → ENRESERV 13:01
PROVIDERS: ADMIT Internal Medicine; ATTEND Internal Medicine
DX: I11.0 Hypertensive heart disease with heart failure (principal); J96.00 Acute respiratory failure, unspecified whether with hypoxia or hypercapnia; J18.9 Pneumonia, unspecified organism; J44.1 Chronic obstructive pulmonary disease with (acute) exacerbation; J98.11 Atelectasis; J44.0 Chronic obstructive pulmonary disease with (acute) lower respiratory infection; I50.33 Acute on chronic diastolic (congestive) heart failure; J20.9 Acute bronchitis, unspecified; R26.9 Unspecified abnormalities of gait and mobility; I25.10 Atherosclerotic heart disease of native coronary artery without angina pectoris; E66.01 Morbid (severe) obesity due to excess calories; E11.9 Type 2 diabetes mellitus without complications; M19.90 Unspecified osteoarthritis, unspecified site; Z79.51 Long term (current) use of inhaled steroids; Z79.899 Other long term (current) drug therapy; Z82.0 Family history of epilepsy and other diseases of the nervous system; Z82.49 Family history of ischemic heart disease and other diseases of the circulatory system; Z83.3 Family history of diabetes mellitus; Z87.891 Personal history of nicotine dependence; Z98.891 History of uterine scar from previous surgery
CPT/HCPCS: 36415; 71045; 80048; 80061; 82962; 83880; 84484; 93005; 94640; 94644; 97162; 99285; J1650; J1815; J1956; J2270; J2405; J2930; J7512; J7611; J7620

== ENCOUNTER 2019-09-24 22:55 | Inpatient (IN) | payer MEDICARE, MEDICAID ==
[~2019-09-24] VITALS: Ht 167.6 cm; Wt 108.9 kg
[~2019-09-24 22:55] MED LIST changes: +FURO-151 MT
[2019-09-24] MEDS ORDERED: SODIUM CHLORIDE 0.9% 1,000 ML IV ONE (23:25)
[2019-09-24] MEDS ORDERED: ONDANSETRON HCL 4MG/2ML INJ IV STA (23:25)
[2019-09-24] MEDS ORDERED: METHYLPREDNISOLONE SOD SUCC 125 MG/2 ML VIAL IV STA (23:25)
[2019-09-24] MEDS ORDERED: IPRATROPIUM BROMIDE (0.02%) 0.5MG/2.5ML NEB HHN STA (23:25)
[2019-09-24] MEDS ORDERED: MAGNESIUM 2 G PREMIX 50 ML IV ONE (23:30)
[2019-09-24 23:41] LABS: BASOPHILS % 0.8 % (0.0-2.0); EOSINOPHILS % 3.1 % (0.0-5.0); HEMATOCRIT. 38.9 % (36.0-48.0); HEMOGLOBIN. 12.9 g/dL (12.0-16.0); LYMPHOCYTES % 39.3 % (20.0-50.0); MEAN CORPUSCULAR HEMOGLOBIN 29.4 pg (28.0-32.0); MEAN CORPUSCULAR VOLUME 88.8 fL (81.0-99.0); MEAN PLATELET VOLUME 8.6 fl (7.4-10.4); NEUTROPHILS % 42.8 % (40.0-76.0); PLATELET 258 x1000/uL (130-400); RED BLOOD CELL COUNT 4.38 mill/uL (4.2-5.4); RED CELL DISTRIBUTION WIDTH 15.8 % (11.6-14.6)
[2019-09-24 23:42] LABS: CHLORIDE 109 mEq/L (98-107)
[2019-09-25] LABS: BG BASE EXCESS 0.9 mmol/L (-2.0-2.0); BG CARBOXYHEMOGLOBIN 1.1 % (0.5-1.5); BG DEOXYHEMOGLOBIN 2.9 % (0.0-5.0); BG FRACTION INSPIRED OXYGEN 32; BG HCO3 ACT 26.6 mmol/L (22.0-26.0); BG METHEMOGLOBIN 0.1 % (0.0-1.5); BG OXYGEN SATURATION 97.1 % (92.0-98.5); BG OXYHEMOGLOBIN 95.9 % (94.0-97.0); BG PCO2 46.6 mmHg (35.0-45.0); BG PH 7.375 (7.350-7.450); BG PO2 100.7 mmHg (75.0-100.0); BG SAMPLE SITE RIGHT RADIAL; BG TOTAL HEMOGLOBIN 13.5 g/dL (12.0-18.0); BG VENT MODE NASAL CANNULA
[2019-09-25] MEDS: ALBUTEROL (0.083%) 2.5MG/3ML NEB HHN SCH ×3 (00:02→00:38)
[2019-09-25] MEDS ORDERED: ONDANSETRON HCL 4MG/2ML INJ IV PRN (06:30)
[2019-09-25] MEDS ORDERED: MORPHINE SULFATE 2 MG/ML CPJ (NOT FOR IM USE) IV PRN (06:30)
[2019-09-25] MEDS ORDERED: GUAIFENESIN 200MG/10ML SUGAR FREE UDC PO PRN (06:30)
[2019-09-25] MEDS ORDERED: MAGNESIUM/ALUMINUM HYDROXIDE/SIMETHICONE 30ML UDC PO PRN (06:30)
[2019-09-25] MEDS ORDERED: LORAZEPAM 2MG/ML CPJ IV PRN (06:30)
[2019-09-25] MEDS ORDERED: DIPHENHYDRAMINE 50MG/ML VIAL IV PRN (06:30)
[2019-09-25] MEDS ORDERED: DOCUSATE SODIUM 100MG CAPSULE PO PRN (06:30)
[2019-09-25] MEDS ORDERED: NA PHOS,M-B/NA PHOS,DI-BA ENEMA 118ML PR PRN (06:30)
[2019-09-25] MEDS ORDERED: DEXTROSE 50% WATER 50ML SYRINGE IV PRN ×2 (06:30)
[2019-09-25] MEDS ORDERED: ACETAMINOPHEN 325MG TABLET PO PRN (06:30)
[2019-09-25] MEDS ORDERED: CLONIDINE 0.2MG TABLET PO ONE (06:45)
[2019-09-25] MEDS ORDERED: MORPHINE SULFATE 4 MG/ML CPJ (NOT FOR IM USE) IV ONE (06:45)
[2019-09-25] MEDS: HYDRALAZINE 20MG/ML VIAL IV PRN (06:49)
[2019-09-25] MEDS: BLOOD SUGAR DIAGNOSTIC STRIP TEST SCH ×4 (09:00→21:28)
[2019-09-25 09:30] VITALS: BP 202/113
[2019-09-25] MEDS ORDERED: LEVOFLOXACIN 500MG PREMIX 100 ML IV SCH (11:00)
[2019-09-25 12:00] VITALS: BP 177/83
[2019-09-25] MEDS: ENOXAPARIN 30MG/0.3ML SYR SUBCUT SCH ×2 (12:28→21:23)
[2019-09-25] MEDS: INSULIN LISPRO 100 UNITS/ML SUBCUT SCH ×4 (12:34→21:28)
[2019-09-25 14:05] VITALS: BP 153/85
[2019-09-25 16:00] VITALS: BP 174/99
[2019-09-25] MEDS: HYDROCODONE/ACETAMINOPHEN 10/325MG TABLET PO PRN (16:26)
[2019-09-25 17:12] LABS: CREATINE KINASE 164 IU/L (26-192)
[2019-09-25 17:13] LABS: CREATINE KINASE MB FRACTION 2.1 ng/mL (0.5-3.6)
[2019-09-25] MEDS: LEVOFLOXACIN 500MG PREMIX 100 ML IV SCH (18:06)
[2019-09-25] MEDS: SODIUM CHLORIDE 0.9% INJ 3ML FLUSH IVF SCH ×2 (18:07→21:29)
[2019-09-25] MEDS: IPRATROPIUM/ALBUTEROL 0.5-3(2.5)MG/3ML NEB HHN SCH (20:14)
[2019-09-25] MEDS: GUAIFENESIN 600MG ER TABLET PO SCH (21:23)
[2019-09-26 01:48] LABS: CREATINE KINASE MB FRACTION 1.8 ng/mL (0.5-3.6)
[2019-09-26 04:00] VITALS: BP 184/101
[2019-09-26] MEDS: IPRATROPIUM/ALBUTEROL 0.5-3(2.5)MG/3ML NEB HHN SCH ×4 (04:09→21:39)
[2019-09-26] MEDS: HYDRALAZINE 20MG/ML VIAL IV PRN ×2 (06:08→21:11)
[2019-09-26] MEDS: SODIUM CHLORIDE 0.9% INJ 3ML FLUSH IVF SCH ×3 (06:12→21:25)
[2019-09-26] MEDS: INSULIN LISPRO 100 UNITS/ML SUBCUT SCH ×4 (06:23→21:24)
[2019-09-26] MEDS: BLOOD SUGAR DIAGNOSTIC STRIP TEST SCH ×4 (06:23→21:22)
[2019-09-26] MEDS: IPRATROPIUM/ALBUTEROL 0.5-3(2.5)MG/3ML NEB HHN PRN (06:47)
[2019-09-26 07:33] LABS: BASOPHILS % 0.2 % (0.0-2.0); EOSINOPHILS % 0.2 % (0.0-5.0); HEMOGLOBIN. 12.8 g/dL (12.0-16.0); MEAN CORPUSCULAR HEMOGLOBIN 29.1 pg (28.0-32.0); MEAN CORPUSCULAR VOLUME 88.6 fL (81.0-99.0); MEAN PLATELET VOLUME 8.7 fl (7.4-10.4); MONOCYTES % 8.3 % (2.0-8.0); NEUTROPHILS % 65.3 % (40.0-76.0); PLATELET 277 x1000/uL (130-400); RED CELL DISTRIBUTION WIDTH 15.6 % (11.6-14.6)
[2019-09-26 08:00] VITALS: BP 158/90
[2019-09-26 08:00] LABS: CHLORIDE 107 mEq/L (98-107)
[2019-09-26] MEDS: GUAIFENESIN 600MG ER TABLET PO SCH ×2 (09:32→21:11)
[2019-09-26] MEDS: ENOXAPARIN 30MG/0.3ML SYR SUBCUT SCH ×2 (09:34→21:29)
[2019-09-26] MEDS: FUROSEMIDE 40MG TABLET PO SCH (13:06)
[2019-09-26] MEDS: BENAZEPRIL 10MG TABLET PO SCH (13:07)
[2019-09-26] MEDS: HYDROCODONE/ACETAMINOPHEN 10/325MG TABLET PO PRN (17:57)
[2019-09-26] MEDS: LEVOFLOXACIN 500MG PREMIX 100 ML IV SCH (17:58)
[2019-09-26 20:00] VITALS: BP 180/84
[2019-09-26] MEDS: ACETYLCYSTEINE 100MG/ML 10% VIAL 4ML INH SCH (21:46)
[2019-09-27] VITALS: BP 174/84
[2019-09-27] MEDS: IPRATROPIUM/ALBUTEROL 0.5-3(2.5)MG/3ML NEB HHN SCH ×4 (01:07→19:52)
[2019-09-27] MEDS: HYDROCODONE/ACETAMINOPHEN 10/325MG TABLET PO PRN ×2 (01:15→20:43)
[2019-09-27] MEDS: CLONIDINE 0.1MG TABLET PO PRN ×2 (01:16→14:16)
[2019-09-27 04:00] VITALS: BP 170/84
[2019-09-27] MEDS: SODIUM CHLORIDE 0.9% INJ 3ML FLUSH IVF SCH ×3 (06:00→20:44)
[2019-09-27] MEDS: BLOOD SUGAR DIAGNOSTIC STRIP TEST SCH ×4 (07:30→20:44)
[2019-09-27] MEDS: INSULIN LISPRO 100 UNITS/ML SUBCUT SCH ×4 (07:40→20:41)
[2019-09-27] MEDS: ACETYLCYSTEINE 100MG/ML 10% VIAL 4ML INH SCH ×2 (08:29→19:53)
[2019-09-27] MEDS: ENOXAPARIN 30MG/0.3ML SYR SUBCUT SCH ×2 (09:46→20:41)
[2019-09-27] MEDS: FUROSEMIDE 40MG TABLET PO SCH (09:48)
[2019-09-27] MEDS: BENAZEPRIL 10MG TABLET PO SCH (09:48)
[2019-09-27] MEDS: GUAIFENESIN 600MG ER TABLET PO SCH ×2 (09:48→20:42)
[2019-09-27 12:00] VITALS: BP 171/96
[2019-09-27 16:00] VITALS: BP 180/96
[2019-09-27] MEDS: LEVOFLOXACIN 500MG PREMIX 100 ML IV SCH (18:05)
[2019-09-27 20:00] VITALS: BP 157/97
[2019-09-28] VITALS: BP 160/84
[2019-09-28] MEDS: IPRATROPIUM/ALBUTEROL 0.5-3(2.5)MG/3ML NEB HHN SCH ×2 (02:38→06:00)
[2019-09-28 04:00] VITALS: BP 153/93
[2019-09-28] MEDS: INSULIN LISPRO 100 UNITS/ML SUBCUT SCH (06:15)
[2019-09-28] MEDS: SODIUM CHLORIDE 0.9% INJ 3ML FLUSH IVF SCH (06:16)
[2019-09-28] MEDS: BLOOD SUGAR DIAGNOSTIC STRIP TEST SCH (06:16)
[2019-09-28] MEDS: ACETYLCYSTEINE 100MG/ML 10% VIAL 4ML INH SCH (07:45)
[2019-09-28] MEDS: GUAIFENESIN 600MG ER TABLET PO SCH (08:28)
[2019-09-28] MEDS: FUROSEMIDE 40MG TABLET PO SCH (08:28)
[2019-09-28] MEDS: BENAZEPRIL 10MG TABLET PO SCH (08:28)
[2019-09-28] MEDS: ENOXAPARIN 30MG/0.3ML SYR SUBCUT SCH (08:30)
[2019-09-28 09:06] VITALS: BP 153/107
[2019-09-28] MEDS: IPRATROPIUM/ALBUTEROL 0.5-3(2.5)MG/3ML NEB HHN PRN (10:09)
== END 2019-09-28 11:06 | disposition home or self-care (01) | DRG 189 ==
LOC: ER 22:55 → 8WST 09-25 01:43 → EDBEDREQ 09-25 01:46 → EDBEDREQDT 09-25 01:46 → EDBEDREQTM 09-25 01:46 → ENRESERV 09-25 07:13
PROVIDERS: ADMIT Internal Medicine; ATTEND Internal Medicine
DX: J96.00 Acute respiratory failure, unspecified whether with hypoxia or hypercapnia (principal); J44.1 Chronic obstructive pulmonary disease with (acute) exacerbation; E87.0 Hyperosmolality and hypernatremia; E87.2 Acidosis; E11.9 Type 2 diabetes mellitus without complications; E66.01 Morbid (severe) obesity due to excess calories; F17.210 Nicotine dependence, cigarettes, uncomplicated; I11.0 Hypertensive heart disease with heart failure; I50.9 Heart failure, unspecified; I25.10 Atherosclerotic heart disease of native coronary artery without angina pectoris; Z98.891 History of uterine scar from previous surgery; M19.90 Unspecified osteoarthritis, unspecified site; Z79.899 Other long term (current) drug therapy; Z68.38 Body mass index [BMI] 38.0-38.9, adult
CPT/HCPCS: 36415; 36600; 71045; 82375; 82550; 82553; 82805; 82962; 83605; 83880; 84484; 87804; 93005; 94640; 96361; 96365; 96375; 99291; J0360; J1650; J1815; J1956; J2060; J2270; J2405; J2930; J3475; J7030; J7608; J7611; J7620

== ENCOUNTER 2019-10-30 07:24 | Inpatient (IN) | payer MEDICARE, MEDICAID ==
[~2019-10-30] VITALS: Ht 170.2 cm; Wt 121.6 kg
[2019-10-30] MEDS ORDERED: METHYLPREDNISOLONE SOD SUCC 125 MG/2 ML VIAL IV STA (07:47)
[2019-10-30] MEDS ORDERED: ALBUTEROL (0.083%) 2.5MG/3ML NEB HHN STA (07:47)
[2019-10-30] MEDS ORDERED: IPRATROPIUM BROMIDE (0.02%) 0.5MG/2.5ML NEB HHN STA (07:47)
[2019-10-30 08:09] LABS: EOSINOPHILS % 1.9 % (0.0-5.0); HEMATOCRIT. 37.9 % (36.0-48.0); HEMOGLOBIN. 12.6 g/dL (12.0-16.0); LYMPHOCYTES % 18.3 % (20.0-50.0); MEAN CORPUSCULAR HEMOGLOBIN 29.6 pg (28.0-32.0); MEAN CORPUSCULAR VOLUME 89.2 fL (81.0-99.0); MEAN PLATELET VOLUME 8.8 fl (7.4-10.4); MONOCYTES % 8.5 % (2.0-8.0); NEUTROPHILS % 70.3 % (40.0-76.0); PLATELET 248 x1000/uL (130-400); RED BLOOD CELL COUNT 4.25 mill/uL (4.2-5.4); RED CELL DISTRIBUTION WIDTH 14.9 % (11.6-14.6)
[2019-10-30 08:17] LABS: CHLORIDE 111 mEq/L (98-107)
[2019-10-30 08:34] LABS: BG BASE EXCESS -1.7 mmol/L (-2.0-2.0); BG BILEVEL POS AIRWAY PRESSURE 15/5; BG CARBOXYHEMOGLOBIN 1.4 % (0.5-1.5); BG FRACTION INSPIRED OXYGEN 40; BG HCO3 ACT 22.9 mmol/L (22.0-26.0); BG METHEMOGLOBIN 0.1 % (0.0-1.5); BG OXYHEMOGLOBIN 97.5 % (94.0-97.0); BG PCO2 38.1 mmHg (35.0-45.0); BG PH 7.396 (7.350-7.450); BG PO2 191.2 mmHg (75.0-100.0); BG SAMPLE SITE LEFT BRACHIAL; BG VENT MODE MASK - BIPAP
[2019-10-30] MEDS ORDERED: NA PHOS,M-B/NA PHOS,DI-BA ENEMA 118ML PR PRN (10:15)
[2019-10-30] MEDS ORDERED: MAGNESIUM/ALUMINUM HYDROXIDE/SIMETHICONE 30ML UDC PO PRN (10:15)
[2019-10-30] MEDS ORDERED: DOCUSATE SODIUM 100MG CAPSULE PO PRN (10:15)
[2019-10-30] MEDS ORDERED: DIPHENHYDRAMINE 50MG/ML VIAL IV PRN (10:15)
[2019-10-30] MEDS ORDERED: IPRATROPIUM/ALBUTEROL 0.5-3(2.5)MG/3ML NEB NEB PRN (10:15)
[2019-10-30] MEDS ORDERED: ONDANSETRON HCL 4MG/2ML INJ IV PRN (10:15)
[2019-10-30] MEDS ORDERED: ACETAMINOPHEN 325MG TABLET PO PRN (10:15)
[2019-10-30] MEDS ORDERED: LEVOFLOXACIN 500MG PREMIX 100 ML IV SCH (10:15)
[2019-10-30] MEDS ORDERED: HYDROCODONE/ACETAMINOPHEN 5/325MG TABLET PO PRN (10:15)
[2019-10-30] MEDS ORDERED: LORAZEPAM 2MG/ML CPJ IV PRN (10:15)
[2019-10-30] MEDS ORDERED: GUAIFENESIN 200MG/10ML SUGAR FREE UDC PO PRN (10:15)
[2019-10-30] MEDS: MORPHINE SULFATE 2 MG/ML CPJ (NOT FOR IM USE) IV PRN ×2 (12:05→23:40)
[2019-10-30] MEDS: CLONIDINE 0.1MG TABLET PO PRN ×2 (13:18→23:46)
[2019-10-30 16:42] LABS: CHLORIDE 110 mEq/L (98-107)
[2019-10-30] MEDS: IPRATROPIUM/ALBUTEROL 0.5-3(2.5)MG/3ML NEB HHN SCH (16:57)
[2019-10-30] MEDS: METHYLPREDNISOLONE SOD SUCC 40 MG/ML VIAL IV SCH (19:00)
[2019-10-30 23:00] VITALS: BP 195/82
[2019-10-30] MEDS: FUROSEMIDE 40MG/4ML VIAL IV SCH (23:38)
[2019-10-30] MEDS: ENOXAPARIN 40MG/0.4ML SYR SUBCUT SCH (23:39)
[2019-10-31] VITALS (9 sets, daily range): BP systolic 110–198; BP diastolic 65–111
[2019-10-31] MEDS: IPRATROPIUM/ALBUTEROL 0.5-3(2.5)MG/3ML NEB HHN SCH ×6 (00:23→20:54)
[2019-10-31] MEDS: METHYLPREDNISOLONE SOD SUCC 40 MG/ML VIAL IV SCH ×3 (02:59→18:12)
[2019-10-31] MEDS ORDERED: HYDRALAZINE 20MG/ML VIAL IV NR (06:13)
[2019-10-31] MEDS: FUROSEMIDE 40MG/4ML VIAL IV SCH ×2 (06:34→18:13)
[2019-10-31 07:18] LABS: HEMATOCRIT. 37.7 % (36.0-48.0); HEMOGLOBIN. 12.4 g/dL (12.0-16.0); MEAN CORPUSCULAR HEMOGLOBIN 29.2 pg (28.0-32.0); MEAN CORPUSCULAR VOLUME 88.7 fL (81.0-99.0); MEAN PLATELET VOLUME 9.5 fl (7.4-10.4); PLATELET 258 x1000/uL (130-400); RED BLOOD CELL COUNT 4.24 mill/uL (4.2-5.4); RED CELL DISTRIBUTION WIDTH 14.8 % (11.6-14.6)
[2019-10-31 07:29] LABS: CHLORIDE 107 mEq/L (98-107)
[2019-10-31 07:48] LABS: T4 FREE 0.98 ng/dL (0.76-1.46)
[2019-10-31 07:53] LABS: HDL CHOLESTEROL 67 mg/dL (40-59)
[2019-10-31 07:54] LABS: LDL CHOLESTEROL 93 mg/dL (5-100)
[2019-10-31] MEDS: ASPIRIN 81MG EC TABLET PO SCH (08:52)
[2019-10-31] MEDS: BENAZEPRIL 10MG TABLET PO SCH (08:52)
[2019-10-31] MEDS: METOPROLOL TARTRATE 50MG TABLET PO SCH ×2 (08:52→20:49)
[2019-10-31] MEDS: CLONIDINE 0.1MG TABLET PO PRN ×2 (08:53→15:58)
[2019-10-31] MEDS: MORPHINE SULFATE 2 MG/ML CPJ (NOT FOR IM USE) IV PRN (08:53)
[2019-10-31] MEDS: ENOXAPARIN 40MG/0.4ML SYR SUBCUT SCH ×2 (08:54→20:48)
[2019-10-31] MEDS ORDERED: MEDICATION NOT ON FORMULARY EA (Benazepril Hcl 1 TAB) MT SCH (09:00)
[2019-10-31 16:46] LABS: CLARITY URINE CLEAR (CLEAR); COLOR URINE YELLOW (YELLOW); KETONES URINE NEGATIVE (NEGATIVE); LEUKOCYTE ESTERASE URINE NEGATIVE (NEGATIVE); NITRITE URINE NEGATIVE (NEGATIVE); OCCULT BLOOD URINE NEGATIVE (NEGATIVE); PH URINE 6.5 (4.5-8.0); PROTEIN URINE NEGATIVE (NEGATIVE); SPECIFIC GRAVITY URINE 1.031 (1.005-1.030)
[2019-10-31 16:56] LABS: PLATELET ESTIMATE NORMAL
[2019-10-31 16:56] LABS: *AMPHETAMINES SCREEN URINE NEGATIVE (NEGATIVE)
[2019-10-31 16:57] LABS: *BARBITURATES SCREEN URINE NEGATIVE (NEGATIVE); *BENZODIAZEPINES SCREEN URINE NEGATIVE (NEGATIVE); *COCAINE SCREEN URINE PRESUMTIVE POSITIVE (NEGATIVE); METHADONE URINE SCREEN NEGATIVE (NEGATIVE); OPIATES URINE SCREEN PRESUMTIVE POSITIVE (NEGATIVE); PHENCYCLIDINE URINE SCREEN NEGATIVE (NEGATIVE)
[2019-10-31 16:58] LABS: CANNABINOID URINE SCREEN NEGATIVE (NEGATIVE)
[2019-11-01] VITALS (16 sets, daily range): BP systolic 143–195; BP diastolic 76–122
[2019-11-01] MEDS: IPRATROPIUM/ALBUTEROL 0.5-3(2.5)MG/3ML NEB HHN SCH ×5 (00:16→16:10)
[2019-11-01] MEDS: METHYLPREDNISOLONE SOD SUCC 40 MG/ML VIAL IV SCH ×2 (02:50→09:09)
[2019-11-01] MEDS: CLONIDINE 0.1MG TABLET PO PRN (06:44)
[2019-11-01 07:12] LABS: HEMATOCRIT. 38.6 % (36.0-48.0); HEMOGLOBIN. 12.6 g/dL (12.0-16.0); MEAN CORPUSCULAR HEMOGLOBIN 29.1 pg (28.0-32.0); MEAN PLATELET VOLUME 9.8 fl (7.4-10.4); PLATELET 291 x1000/uL (130-400); RED BLOOD CELL COUNT 4.34 mill/uL (4.2-5.4); RED CELL DISTRIBUTION WIDTH 15.1 % (11.6-14.6)
[2019-11-01] MEDS: FUROSEMIDE 40MG/4ML VIAL IV SCH (07:12)
[2019-11-01 07:24] LABS: CHLORIDE 99 mEq/L (98-107)
[2019-11-01] MEDS: METOPROLOL TARTRATE 50MG TABLET PO SCH (08:15)
[2019-11-01] MEDS: BENAZEPRIL 10MG TABLET PO SCH (08:15)
[2019-11-01] MEDS: ENOXAPARIN 40MG/0.4ML SYR SUBCUT SCH (08:15)
[2019-11-01] MEDS: ASPIRIN 81MG EC TABLET PO SCH (08:15)
[2019-11-01 09:52] LABS: PLATELET ESTIMATE NORMAL
== END 2019-11-01 17:15 | disposition home or self-care (01) | DRG 291 ==
LOC: ER 07:24 → EDBEDREQ 10:10 → ENRESERV 20:56 → 5EST 22:31
PROVIDERS: ADMIT Internal Medicine; ATTEND Internal Medicine
PROC: 5A09357 Assistance with Respiratory Ventilation, Less than 24 Consecutive Hours, Continuous Positive Airway Pressure (ICD-10-PCS; principal; 2019-10-30)
DX: I11.0 Hypertensive heart disease with heart failure (principal); J96.00 Acute respiratory failure, unspecified whether with hypoxia or hypercapnia; J44.1 Chronic obstructive pulmonary disease with (acute) exacerbation; Z68.41 Body mass index [BMI] 40.0-44.9, adult; E66.2 Morbid (severe) obesity with alveolar hypoventilation; I50.33 Acute on chronic diastolic (congestive) heart failure; E11.9 Type 2 diabetes mellitus without complications; D64.9 Anemia, unspecified; R74.0 Nonspecific elevation of levels of transaminase and lactic acid dehydrogenase [LDH]; K30 Functional dyspepsia; K59.00 Constipation, unspecified; F41.9 Anxiety disorder, unspecified; Z60.2 Problems related to living alone; I25.10 Atherosclerotic heart disease of native coronary artery without angina pectoris; F12.90 Cannabis use, unspecified, uncomplicated; F14.10 Cocaine abuse, uncomplicated; Z87.891 Personal history of nicotine dependence; Z98.891 History of uterine scar from previous surgery; Z79.899 Other long term (current) drug therapy
CPT/HCPCS: 36415; 36600; 71045; 80048; 80061; 80305; 81003; 82375; 82805; 83880; 84439; 84443; 84484; 87804; 93005; 94640; 94644; 94660; 96374; 99291; J0360; J1650; J1940; J2060; J2270; J2920; J2930; J7611; J7620

== ENCOUNTER 2019-12-01 16:26 | Inpatient (IN) | payer MEDICARE, MEDICAID ==
[~2019-12-01] VITALS: Ht 170.2 cm; Wt 99.8 kg
[2019-12-01 17:27] LABS: CHLORIDE 93 mEq/L (98-107)
[2019-12-01 17:29] LABS: BASOPHILS % 0.6 % (0.0-2.0); HEMATOCRIT. 50.3 % (36.0-48.0); HEMOGLOBIN. 16.2 g/dL (12.0-16.0); LYMPHOCYTES % 13.7 % (20.0-50.0); MEAN CORPUSCULAR HEMOGLOBIN 29.2 pg (28.0-32.0); MEAN CORPUSCULAR VOLUME 90.6 fL (81.0-99.0); MEAN PLATELET VOLUME 9.4 fl (7.4-10.4); MONOCYTES % 12.7 % (2.0-8.0); PLATELET 319 x1000/uL (130-400); RED BLOOD CELL COUNT 5.55 mill/uL (4.2-5.4); RED CELL DISTRIBUTION WIDTH 15.4 % (11.6-14.6)
[2019-12-01] MEDS ORDERED: SODIUM CHLORIDE 0.9% 1,000 ML IV ONE ×2 (17:46→19:03)
[2019-12-01] MEDS ORDERED: METHYLPREDNISOLONE SOD SUCC 125 MG/2 ML VIAL IV STA (19:01)
[2019-12-01] MEDS ORDERED: ALBUTEROL (0.083%) 2.5MG/3ML NEB HHN STA (19:01)
[2019-12-01] MEDS ORDERED: IPRATROPIUM BROMIDE (0.02%) 0.5MG/2.5ML NEB HHN STA (19:01)
[2019-12-01] MEDS ORDERED: ASPIRIN 81MG TABLET PO ONE (19:15)
[2019-12-01] MEDS ORDERED: INSULIN REGULAR (HUMULIN R) UD 100 UNITS/ML SYR SUBCUT ONE (19:15)
[2019-12-01] MEDS ORDERED: OSELTAMIVIR 75MG CAPSULE PO ONE (19:15)
[2019-12-01] MEDS ORDERED: INSULIN REGULAR (HUMULIN R) 300UNITS/3ML SUBCUT STA (20:42)
[2019-12-02] MEDS ORDERED: DIPHENHYDRAMINE 50MG/ML VIAL IV PRN (01:00)
[2019-12-02] MEDS ORDERED: IPRATROPIUM/ALBUTEROL 0.5-3(2.5)MG/3ML NEB NEB SCH (01:00)
[2019-12-02] MEDS ORDERED: DOCUSATE SODIUM 100MG CAPSULE PO PRN (01:00)
[2019-12-02] MEDS ORDERED: IPRATROPIUM/ALBUTEROL 0.5-3(2.5)MG/3ML NEB NEB PRN (01:00)
[2019-12-02] MEDS ORDERED: ACETAMINOPHEN 650MG/20.3ML UDC GT PRN (01:00)
[2019-12-02] MEDS ORDERED: ACETAMINOPHEN 325MG TABLET PO PRN (01:00)
[2019-12-02] MEDS ORDERED: ACETAMINOPHEN 650MG SUPP PR PRN (01:00)
[2019-12-02] MEDS ORDERED: ONDANSETRON HCL 4MG/2ML INJ IV PRN (01:00)
[2019-12-02] MEDS ORDERED: MAGNESIUM/ALUMINUM HYDROXIDE/SIMETHICONE 30ML UDC PO PRN (01:00)
[2019-12-02] MEDS ORDERED: NA PHOS,M-B/NA PHOS,DI-BA ENEMA 118ML PR PRN (01:00)
[2019-12-02] MEDS ORDERED: METHYLPREDNISOLONE SOD SUCC 125 MG/2 ML VIAL IV NR ×2 (01:30→10:45)
[2019-12-02] MEDS: HYDROCODONE/ACETAMINOPHEN 5/325MG TABLET PO PRN ×2 (02:28→19:08)
[2019-12-02] MEDS ORDERED: METHYLPREDNISOLONE SOD SUCC 125 MG/2 ML VIAL IV SCH (09:00)
[2019-12-02] MEDS: GUAIFENESIN 200MG/10ML SUGAR FREE UDC PO PRN (11:26)
[2019-12-02 11:43] LABS: BASOPHILS % 0.5 % (0.0-2.0); HEMATOCRIT. 45.4 % (36.0-48.0); HEMOGLOBIN. 14.8 g/dL (12.0-16.0); MEAN CORPUSCULAR HEMOGLOBIN 29.7 pg (28.0-32.0); MEAN CORPUSCULAR VOLUME 91.2 fL (81.0-99.0); MEAN PLATELET VOLUME 9.3 fl (7.4-10.4); NEUTROPHILS % 82.5 % (40.0-76.0); PLATELET 295 x1000/uL (130-400); RED BLOOD CELL COUNT 4.97 mill/uL (4.2-5.4); RED CELL DISTRIBUTION WIDTH 14.6 % (11.6-14.6)
[2019-12-02 11:49] LABS: CHLORIDE 98 mEq/L (98-107)
[2019-12-02 12:21] LABS: T4 FREE 0.81 ng/dL (0.76-1.46)
[2019-12-02] MEDS ORDERED: INSULIN GLARGINE UD 100 UNITS/ML SYR SUBCUT NR (12:30)
[2019-12-02] MEDS ORDERED: DEXTROSE 50% WATER 50ML SYRINGE IV PRN (13:00)
[2019-12-02 13:53] LABS: BG BASE EXCESS -2.6 mmol/L (-2.0-2.0); BG CARBOXYHEMOGLOBIN 0.4 % (0.5-1.5); BG DEOXYHEMOGLOBIN 5.1 % (0.0-5.0); BG HCO3 ACT 22.6 mmol/L (22.0-26.0); BG METHEMOGLOBIN 0.3 % (0.0-1.5); BG OXYGEN SATURATION 94.9 % (92.0-98.5); BG OXYHEMOGLOBIN 94.2 % (94.0-97.0); BG PCO2 40.8 mmHg (35.0-45.0); BG PH 7.361 (7.350-7.450); BG PO2 72.8 mmHg (75.0-100.0); BG SAMPLE SITE LEFT RADIAL; BG TOTAL HEMOGLOBIN 14.7 g/dL (12.0-18.0); BG VENT MODE NASAL CANNULA
[2019-12-02 14:30] VITALS: BP 157/131
[2019-12-02 15:00] LABS: CREATINE KINASE 63 IU/L (26-192)
[2019-12-02 15:01] LABS: CREATINE KINASE MB FRACTION 1.3 ng/mL (0.5-3.6)
[2019-12-02] MEDS ORDERED: METHYLPREDNISOLONE SOD SUCC 40 MG/ML VIAL IV SCH (15:43)
[2019-12-02] MEDS ORDERED: LIDOCAINE HCL/PF 1% 2ML VIAL ONE (16:29)
[2019-12-02] MEDS: FUROSEMIDE 40MG TABLET PO SCH (16:30)
[2019-12-02] MEDS: METOPROLOL TARTRATE 50MG TABLET PO SCH ×2 (16:30→21:00)
[2019-12-02] MEDS: INSULIN LISPRO (HIGH DOSE) 100 UNITS/ML SUBCUT SCH ×3 (16:32→21:38)
[2019-12-02] MEDS: BUDESONIDE 0.5MG/2ML NEB HHN SCH (17:20)
[2019-12-02] MEDS: IPRATROPIUM/ALBUTEROL 0.5-3(2.5)MG/3ML NEB NEB SCH ×2 (17:21→20:33)
[2019-12-02] MEDS: BLOOD SUGAR DIAGNOSTIC STRIP TEST SCH ×2 (18:21→21:13)
[2019-12-02] MEDS: INSULIN LISPRO 100 UNITS/ML SUBCUT SCH (18:30)
[2019-12-02] MEDS: CLONIDINE 0.1MG TABLET PO PRN (19:03)
[2019-12-02] MEDS: HYDRALAZINE HCL 50MG TABLET PO SCH (19:27)
[2019-12-02 20:00] VITALS: BP 158/82
[2019-12-02 20:56] LABS: CLARITY URINE CLEAR (CLEAR); COLOR URINE YELLOW (YELLOW); KETONES URINE NEGATIVE (NEGATIVE); LEUKOCYTE ESTERASE URINE NEGATIVE (NEGATIVE); NITRITE URINE NEGATIVE (NEGATIVE); OCCULT BLOOD URINE NEGATIVE (NEGATIVE); PROTEIN URINE NEGATIVE (NEGATIVE); SPECIFIC GRAVITY URINE 1.018 (1.005-1.030); UROBILINOGEN URINE 0.2 E.U./dL (0.2-1.0)
[2019-12-02] MEDS: METHYLPREDNISOLONE SOD SUCC 40 MG/ML VIAL IV SCH (21:00)
[2019-12-02] MEDS: ENOXAPARIN 30MG/0.3ML SYR SUBCUT SCH (21:01)
[2019-12-02 21:06] LABS: *AMPHETAMINES SCREEN URINE NEGATIVE (NEGATIVE); *BARBITURATES SCREEN URINE NEGATIVE (NEGATIVE); *BENZODIAZEPINES SCREEN URINE NEGATIVE (NEGATIVE); *COCAINE SCREEN URINE NEGATIVE (NEGATIVE)
[2019-12-02 21:07] LABS: CANNABINOID URINE SCREEN NEGATIVE (NEGATIVE); METHADONE URINE SCREEN NEGATIVE (NEGATIVE); OPIATES URINE SCREEN NEGATIVE (NEGATIVE); PHENCYCLIDINE URINE SCREEN NEGATIVE (NEGATIVE)
[2019-12-02] MEDS: SODIUM CHLORIDE 0.9% INJ 3ML FLUSH IVF SCH (21:15)
[2019-12-02] MEDS: INSULIN GLARGINE UD 100 UNITS/ML SYR SUBCUT SCH (21:37)
[2019-12-02] MEDS ORDERED: INSULIN GLARGINE UD 100 UNITS/ML SYR SUBCUT SCH (22:00)
[2019-12-02 23:19] LABS: CREATINE KINASE 57 IU/L (26-192)
[2019-12-02 23:20] LABS: CREATINE KINASE MB FRACTION 1.7 ng/mL (0.5-3.6)
[2019-12-03] VITALS: BP 173/87
[2019-12-03] MEDS: HYDRALAZINE HCL 50MG TABLET PO SCH ×4 (00:01→21:03)
[2019-12-03] MEDS: IPRATROPIUM/ALBUTEROL 0.5-3(2.5)MG/3ML NEB NEB SCH ×6 (00:35→21:22)
[2019-12-03 04:00] VITALS: BP 144/71
[2019-12-03] MEDS: SODIUM CHLORIDE 0.9% INJ 3ML FLUSH IVF SCH ×3 (05:53→21:04)
[2019-12-03] MEDS: BLOOD SUGAR DIAGNOSTIC STRIP TEST SCH ×4 (06:05→21:27)
[2019-12-03 07:36] LABS: BASOPHILS % 0.2 % (0.0-2.0); LYMPHOCYTES % 12.6 % (20.0-50.0); MEAN CORPUSCULAR HEMOGLOBIN 29.4 pg (28.0-32.0); MEAN CORPUSCULAR VOLUME 87.9 fL (81.0-99.0); MEAN PLATELET VOLUME 9.5 fl (7.4-10.4); MONOCYTES % 7.8 % (2.0-8.0); NEUTROPHILS % 79.4 % (40.0-76.0); PLATELET 250 x1000/uL (130-400); RED BLOOD CELL COUNT 4.77 mill/uL (4.2-5.4); RED CELL DISTRIBUTION WIDTH 14.3 % (11.6-14.6)
[2019-12-03 08:00] VITALS: BP 179/88
[2019-12-03] MEDS: BUDESONIDE 0.5MG/2ML NEB HHN SCH ×2 (08:03→21:22)
[2019-12-03 08:21] LABS: CHLORIDE 102 mEq/L (98-107)
[2019-12-03 08:29] LABS: LDL CHOLESTEROL 142 mg/dL (5-100)
[2019-12-03 08:30] LABS: CREATINE KINASE 42 IU/L (26-192)
[2019-12-03 08:31] LABS: HDL CHOLESTEROL 60 mg/dL (40-59)
[2019-12-03 08:33] LABS: CREATINE KINASE MB FRACTION 2.2 ng/mL (0.5-3.6)
[2019-12-03] MEDS: METHYLPREDNISOLONE SOD SUCC 40 MG/ML VIAL IV SCH ×2 (09:33→21:02)
[2019-12-03] MEDS: FUROSEMIDE 40MG TABLET PO SCH (09:34)
[2019-12-03] MEDS: METOPROLOL TARTRATE 50MG TABLET PO SCH ×2 (09:34→21:03)
[2019-12-03] MEDS: ENOXAPARIN 30MG/0.3ML SYR SUBCUT SCH ×2 (09:35→21:03)
[2019-12-03] MEDS: INSULIN LISPRO 100 UNITS/ML SUBCUT SCH ×3 (09:38→18:52)
[2019-12-03] MEDS: INSULIN LISPRO (HIGH DOSE) 100 UNITS/ML SUBCUT SCH ×4 (09:40→21:42)
[2019-12-03] MEDS: INSULIN GLARGINE UD 100 UNITS/ML SYR SUBCUT SCH ×2 (11:14→22:08)
[2019-12-03] MEDS: BENZONATATE 100MG CAPSULE PO SCH ×3 (11:14→19:09)
[2019-12-03] MEDS: GUAIFENESIN 200MG/10ML SUGAR FREE UDC PO PRN ×2 (11:14→19:09)
[2019-12-03 12:00] VITALS: BP 162/87
[2019-12-03 16:00] VITALS: BP 179/90
[2019-12-03] MEDS: HYDROCODONE/ACETAMINOPHEN 5/325MG TABLET PO PRN (19:56)
[2019-12-03 20:00] VITALS: BP 132/96
[2019-12-03] MEDS: ATORVASTATIN CALCIUM 40MG TABLET PO SCH (21:03)
[2019-12-03] MEDS: PROMETHAZINE/DEXTROMETHORPHAN 6.25-15MG/5ML BOTTLE 120ML PO PRN (22:09)
[2019-12-04] VITALS: BP 176/82
[2019-12-04] MEDS: BENZONATATE 100MG CAPSULE PO SCH ×4 (03:57→21:56)
[2019-12-04 04:00] VITALS: BP 194/94
[2019-12-04] MEDS: IPRATROPIUM/ALBUTEROL 0.5-3(2.5)MG/3ML NEB NEB SCH ×6 (04:15→20:25)
[2019-12-04] MEDS: HYDRALAZINE HCL 50MG TABLET PO SCH ×3 (05:43→21:55)
[2019-12-04] MEDS: SODIUM CHLORIDE 0.9% INJ 3ML FLUSH IVF SCH ×3 (05:43→21:56)
[2019-12-04] MEDS: CLONIDINE 0.1MG TABLET PO PRN (05:43)
[2019-12-04] MEDS: BLOOD SUGAR DIAGNOSTIC STRIP TEST SCH ×4 (07:40→21:56)
[2019-12-04 08:00] VITALS: BP 140/70
[2019-12-04] MEDS: BUDESONIDE 0.5MG/2ML NEB HHN SCH ×2 (08:02→20:25)
[2019-12-04] MEDS: PROMETHAZINE/DEXTROMETHORPHAN 6.25-15MG/5ML BOTTLE 120ML PO PRN ×3 (09:05→22:09)
[2019-12-04] MEDS: ENOXAPARIN 30MG/0.3ML SYR SUBCUT SCH ×2 (09:07→21:55)
[2019-12-04] MEDS: FUROSEMIDE 40MG TABLET PO SCH (09:08)
[2019-12-04] MEDS: METHYLPREDNISOLONE SOD SUCC 40 MG/ML VIAL IV SCH (09:08)
[2019-12-04] MEDS: METOPROLOL TARTRATE 50MG TABLET PO SCH ×2 (09:08→21:55)
[2019-12-04] MEDS: GUAIFENESIN 200MG/10ML SUGAR FREE UDC PO PRN (09:10)
[2019-12-04] MEDS: INSULIN GLARGINE UD 100 UNITS/ML SYR SUBCUT SCH ×2 (09:31→22:58)
[2019-12-04] MEDS: INSULIN LISPRO 100 UNITS/ML SUBCUT SCH ×3 (09:32→18:29)
[2019-12-04] MEDS: INSULIN LISPRO (HIGH DOSE) 100 UNITS/ML SUBCUT SCH ×4 (09:33→22:12)
[2019-12-04 12:00] VITALS: BP 174/86
[2019-12-04] MEDS: THEOPHYLLINE ANHYDROUS 80 MG/15 ML 120ML PO SCH (18:28)
[2019-12-04 20:00] VITALS: BP 132/67
[2019-12-04] MEDS: ATORVASTATIN CALCIUM 40MG TABLET PO SCH (21:55)
[2019-12-05] VITALS: BP 133/67
[2019-12-05] MEDS: IPRATROPIUM/ALBUTEROL 0.5-3(2.5)MG/3ML NEB NEB SCH ×5 (00:24→21:18)
[2019-12-05] MEDS: THEOPHYLLINE ANHYDROUS 80 MG/15 ML 120ML PO SCH ×4 (01:05→18:30)
[2019-12-05 04:00] VITALS: BP 140/70
[2019-12-05] MEDS: HYDRALAZINE HCL 50MG TABLET PO SCH ×3 (06:38→18:30)
[2019-12-05] MEDS: SODIUM CHLORIDE 0.9% INJ 3ML FLUSH IVF SCH ×3 (06:38→21:13)
[2019-12-05] MEDS: BENZONATATE 100MG CAPSULE PO SCH ×3 (06:38→21:12)
[2019-12-05] MEDS: BLOOD SUGAR DIAGNOSTIC STRIP TEST SCH ×4 (06:39→21:00)
[2019-12-05 08:00] VITALS: BP 151/77
[2019-12-05] MEDS: BUDESONIDE 0.5MG/2ML NEB HHN SCH ×2 (08:20→21:18)
[2019-12-05] MEDS: FUROSEMIDE 40MG TABLET PO SCH (09:06)
[2019-12-05] MEDS: METHYLPREDNISOLONE SOD SUCC 40 MG/ML VIAL IV SCH (09:06)
[2019-12-05] MEDS: ENOXAPARIN 30MG/0.3ML SYR SUBCUT SCH ×2 (09:07→21:13)
[2019-12-05] MEDS: METOPROLOL TARTRATE 50MG TABLET PO SCH ×2 (09:07→21:13)
[2019-12-05] MEDS: INSULIN LISPRO (HIGH DOSE) 100 UNITS/ML SUBCUT SCH ×4 (09:12→21:00)
[2019-12-05] MEDS: INSULIN LISPRO 100 UNITS/ML SUBCUT SCH ×3 (09:12→18:31)
[2019-12-05] MEDS: PROMETHAZINE/DEXTROMETHORPHAN 6.25-15MG/5ML BOTTLE 120ML PO PRN ×2 (09:33→19:24)
[2019-12-05] MEDS: HYDROCODONE/ACETAMINOPHEN 5/325MG TABLET PO PRN (09:34)
[2019-12-05] MEDS: INSULIN GLARGINE UD 100 UNITS/ML SYR SUBCUT SCH ×2 (09:37→21:24)
[2019-12-05 12:03] VITALS: BP 143/86
[2019-12-05] MEDS ORDERED: IPRA3AMP9 NEB (14:44)
[2019-12-05] MEDS ORDERED: P50 MT (14:44)
[2019-12-05] MEDS ORDERED: THEOL PO (14:44)
[2019-12-05] MEDS ORDERED: LIP40 PO (14:44)
[2019-12-05] MEDS ORDERED: LANTUSUD SUBCUT (14:45)
[2019-12-05] MEDS ORDERED: INSLIS SUBCUT (14:47)
[2019-12-05 20:00] VITALS: BP 154/71
[2019-12-05] MEDS: ATORVASTATIN CALCIUM 40MG TABLET PO SCH (21:13)
[2019-12-05 23:45] VITALS: BP 141/83
[2019-12-06] MEDS: IPRATROPIUM/ALBUTEROL 0.5-3(2.5)MG/3ML NEB NEB SCH ×4 (00:30→12:29)
[2019-12-06 04:00] VITALS: BP 147/83
[2019-12-06] MEDS: BENZONATATE 100MG CAPSULE PO SCH (05:53)
[2019-12-06] MEDS: THEOPHYLLINE ANHYDROUS 80 MG/15 ML 120ML PO SCH ×3 (05:53→12:58)
[2019-12-06] MEDS: HYDRALAZINE HCL 50MG TABLET PO SCH (05:54)
[2019-12-06] MEDS: BLOOD SUGAR DIAGNOSTIC STRIP TEST SCH ×2 (05:58→13:39)
[2019-12-06] MEDS: SODIUM CHLORIDE 0.9% INJ 3ML FLUSH IVF SCH (06:01)
[2019-12-06 08:00] VITALS: BP 130/85
[2019-12-06] MEDS: BUDESONIDE 0.5MG/2ML NEB HHN SCH (08:16)
[2019-12-06] MEDS: INSULIN LISPRO 100 UNITS/ML SUBCUT SCH ×2 (08:24→13:38)
[2019-12-06] MEDS: INSULIN LISPRO (HIGH DOSE) 100 UNITS/ML SUBCUT SCH ×2 (08:25→13:39)
[2019-12-06] MEDS: ENOXAPARIN 30MG/0.3ML SYR SUBCUT SCH (08:26)
[2019-12-06] MEDS: METHYLPREDNISOLONE SOD SUCC 40 MG/ML VIAL IV SCH (08:32)
[2019-12-06] MEDS: FUROSEMIDE 40MG TABLET PO SCH (08:32)
[2019-12-06] MEDS: METOPROLOL TARTRATE 50MG TABLET PO SCH (08:32)
[2019-12-06] MEDS: INSULIN GLARGINE UD 100 UNITS/ML SYR SUBCUT SCH (10:39)
[2019-12-06 12:00] VITALS: BP 130/75
[2019-12-06] MEDS ORDERED: PREDNISONE 20MG TABLET PO SCH (12:30)
[2019-12-06 12:38] VITALS: BP 130/75
== END 2019-12-06 14:50 | disposition home health service (06) | DRG 189 ==
LOC: ER 16:26 → 7WST 20:03 → EDBEDREQ 20:07 → ENRESERV 12-02 13:29
PROVIDERS: ADMIT Internal Medicine; ATTEND Internal Medicine
PROC: 5A09357 Assistance with Respiratory Ventilation, Less than 24 Consecutive Hours, Continuous Positive Airway Pressure (ICD-10-PCS; principal; 2019-12-02)
DX: J96.20 Acute and chronic respiratory failure, unspecified whether with hypoxia or hypercapnia (principal); J44.1 Chronic obstructive pulmonary disease with (acute) exacerbation; E87.1 Hypo-osmolality and hyponatremia; I50.32 Chronic diastolic (congestive) heart failure; E11.65 Type 2 diabetes mellitus with hyperglycemia; E66.01 Morbid (severe) obesity due to excess calories; E87.5 Hyperkalemia; I11.0 Hypertensive heart disease with heart failure; F14.90 Cocaine use, unspecified, uncomplicated; E78.5 Hyperlipidemia, unspecified; E86.0 Dehydration; R74.0 Nonspecific elevation of levels of transaminase and lactic acid dehydrogenase [LDH]; F12.90 Cannabis use, unspecified, uncomplicated; T38.0X5A Adverse effect of glucocorticoids and synthetic analogues, initial encounter; Y92.89 Other specified places as the place of occurrence of the external cause; Z87.891 Personal history of nicotine dependence; Z91.19 Patient's noncompliance with other medical treatment and regimen; Z82.49 Family history of ischemic heart disease and other diseases of the circulatory system; Z83.3 Family history of diabetes mellitus; Z98.891 History of uterine scar from previous surgery; Z99.81 Dependence on supplemental oxygen; Z68.34 Body mass index [BMI] 34.0-34.9, adult; Z79.899 Other long term (current) drug therapy
CPT/HCPCS: 36415; 36600; 71045; 80053; 80061; 80305; 81003; 82375; 82550; 82553; 82805; 82947; 82962; 83036; 83880; 84439; 84443; 84484; 85025; 85379; 87804; 93005; 93306; 93970; 94640; 94644; 99285; J1650; J1815; J2920; J2930; J3490; J7030; J7512; J7611; J7620; J7626

== ENCOUNTER 2020-01-19 16:24 | Inpatient (IN) | payer MEDICARE, MEDICAID ==
[~2020-01-19] VITALS: Ht 167.6 cm; Wt 99.8 kg
[~2020-01-19 16:24] MED LIST changes: +INSLIS SUBCUT; +IPRA3AMP9 NEB; +LANTUSUD SUBCUT; +LIDOCAINE HCL/PF 1% 2ML VIAL ONE; +LIP40 PO; +P50 MT; +THEOL PO
[2020-01-19] MEDS ORDERED: IPRATROPIUM BROMIDE (0.02%) 0.5MG/2.5ML NEB HHN STA (16:49)
[2020-01-19] MEDS ORDERED: METHYLPREDNISOLONE SOD SUCC 125 MG/2 ML VIAL IV STA (16:49)
[2020-01-19] MEDS ORDERED: ALBUTEROL (0.083%) 2.5MG/3ML NEB HHN STA (16:49)
[2020-01-19 17:28] LABS: BASOPHILS % 0.7 % (0.0-2.0); EOSINOPHILS % 1.3 % (0.0-5.0); HEMATOCRIT. 41.4 % (36.0-48.0); HEMOGLOBIN. 13.5 g/dL (12.0-16.0); LYMPHOCYTES % 36.1 % (20.0-50.0); MEAN CORPUSCULAR HEMOGLOBIN 28.3 pg (28.0-32.0); MEAN CORPUSCULAR VOLUME 86.6 fL (81.0-99.0); MEAN PLATELET VOLUME 9.4 fl (7.4-10.4); MONOCYTES % 9.9 % (2.0-8.0); PLATELET 226 x1000/uL (130-400); RED BLOOD CELL COUNT 4.78 mill/uL (4.2-5.4); RED CELL DISTRIBUTION WIDTH 15.1 % (11.6-14.6)
[2020-01-19 17:30] LABS: CHLORIDE 110 mEq/L (98-107)
[2020-01-19 18:43] LABS: BG BASE EXCESS -1.8 mmol/L (-2.0-2.0); BG CARBOXYHEMOGLOBIN 0.7 % (0.5-1.5); BG FRACTION INSPIRED OXYGEN 60; BG HCO3 ACT 23.4 mmol/L (22.0-26.0); BG METHEMOGLOBIN 0.2 % (0.0-1.5); BG OXYHEMOGLOBIN 98.1 % (94.0-97.0); BG PCO2 41.3 mmHg (35.0-45.0); BG PH 7.371 (7.350-7.450); BG PO2 179.6 mmHg (75.0-100.0); BG SAMPLE SITE RIGHT RADIAL; BG TOTAL HEMOGLOBIN 14.1 g/dL (12.0-18.0)
[2020-01-19] MEDS ORDERED: ACETAMINOPHEN 325MG TABLET PO PRN (22:45)
[2020-01-19] MEDS ORDERED: DOCUSATE SODIUM 100MG CAPSULE PO PRN (22:45)
[2020-01-19] MEDS ORDERED: NA PHOS,M-B/NA PHOS,DI-BA ENEMA 118ML PR PRN (22:45)
[2020-01-19] MEDS ORDERED: MAGNESIUM/ALUMINUM HYDROXIDE/SIMETHICONE 30ML UDC PO PRN (22:45)
[2020-01-19] MEDS ORDERED: ONDANSETRON HCL 4MG/2ML INJ IV PRN (22:45)
[2020-01-19] MEDS ORDERED: MORPHINE SULFATE 2 MG/ML CPJ (NOT FOR IM USE) IV PRN (22:45)
[2020-01-19] MEDS ORDERED: LORAZEPAM 2MG/ML CPJ IV PRN (22:45)
[2020-01-19] MEDS ORDERED: GUAIFENESIN 200MG/10ML SUGAR FREE UDC PO PRN (22:45)
[2020-01-19] MEDS ORDERED: DIPHENHYDRAMINE 50MG/ML VIAL IV PRN (22:45)
[2020-01-19 23:42] LABS: CHLORIDE 107 mEq/L (98-107)
[2020-01-19] MEDS: METHYLPREDNISOLONE SOD SUCC 125 MG/2 ML VIAL IV SCH (23:52)
[2020-01-19] MEDS: HYDROCODONE/ACETAMINOPHEN 5/325MG TABLET PO PRN (23:53)
[2020-01-20] MEDS: LEVOFLOXACIN 500MG PREMIX 100 ML IV SCH
[2020-01-20] MEDS ORDERED: FUROSEMIDE 40MG/4ML VIAL IVP SCH (02:48)
[2020-01-20] MEDS ORDERED: FUROSEMIDE 40MG/4ML VIAL IV SCH (03:00)
[2020-01-20] MEDS ORDERED: DEXTROSE 50% WATER 50ML SYRINGE IV PRN (05:15)
[2020-01-20] MEDS: BLOOD SUGAR DIAGNOSTIC STRIP TEST SCH ×5 (05:25→21:00)
[2020-01-20] MEDS: INSULIN REGULAR HUMAN (MEDIUM DOSE) 100 UNITS/ML 3ML VIAL SUBCUT SCH ×5 (05:25→22:07)
[2020-01-20 05:31] LABS: HEMATOCRIT. 40.3 % (36.0-48.0); HEMOGLOBIN. 13.4 g/dL (12.0-16.0); MEAN CORPUSCULAR HEMOGLOBIN 28.8 pg (28.0-32.0); MEAN CORPUSCULAR VOLUME 86.5 fL (81.0-99.0); MEAN PLATELET VOLUME 9.6 fl (7.4-10.4); PLATELET 227 x1000/uL (130-400); RED BLOOD CELL COUNT 4.66 mill/uL (4.2-5.4); RED CELL DISTRIBUTION WIDTH 15.2 % (11.6-14.6)
[2020-01-20 05:37] LABS: CHLORIDE 108 mEq/L (98-107)
[2020-01-20 05:44] LABS: LDL CHOLESTEROL 92 mg/dL (5-100)
[2020-01-20 05:47] LABS: HDL CHOLESTEROL 69 mg/dL (40-59); T4 FREE 0.98 ng/dL (0.76-1.46)
[2020-01-20] MEDS: METHYLPREDNISOLONE SOD SUCC 125 MG/2 ML VIAL IV SCH ×3 (06:00→17:53)
[2020-01-20] MEDS: HYDROCODONE/ACETAMINOPHEN 5/325MG TABLET PO PRN (07:31)
[2020-01-20 08:03] LABS: PLATELET ESTIMATE NORMAL
[2020-01-20] MEDS: FUROSEMIDE 40MG/4ML VIAL IV SCH (09:00)
[2020-01-20 09:30] VITALS: BP 186/55
[2020-01-20] MEDS: ASPIRIN 81MG EC TABLET PO SCH (09:30)
[2020-01-20 10:00] VITALS: BP 186/94
[2020-01-20] MEDS: ENOXAPARIN 30MG/0.3ML SYR SUBCUT SCH ×2 (11:21→22:08)
[2020-01-20] MEDS: IPRATROPIUM/ALBUTEROL 0.5-3(2.5)MG/3ML NEB NEB PRN (11:54)
[2020-01-20 12:21] VITALS: BP 187/87
[2020-01-20 16:32] VITALS: BP 165/92
[2020-01-20 20:00] VITALS: BP 194/95
[2020-01-20] MEDS ORDERED: ATORVASTATIN CALCIUM 40MG TABLET PO SCH (21:00)
[2020-01-20] MEDS: INSULIN GLARGINE UD 100 UNITS/ML SYR SUBCUT SCH (22:08)
[2020-01-20] MEDS: CLONIDINE 0.1MG TABLET PO PRN (22:18)
[2020-01-21] VITALS: BP 186/91
[2020-01-21] MEDS: METHYLPREDNISOLONE SOD SUCC 125 MG/2 ML VIAL IV SCH ×2 (01:54→07:04)
[2020-01-21] MEDS: HYDROCODONE/ACETAMINOPHEN 5/325MG TABLET PO PRN ×2 (01:57→13:33)
[2020-01-21] MEDS: LEVOFLOXACIN 500MG PREMIX 100 ML IV SCH (03:52)
[2020-01-21 04:00] VITALS: BP 174/99
[2020-01-21] MEDS: BLOOD SUGAR DIAGNOSTIC STRIP TEST SCH ×3 (07:04→17:23)
[2020-01-21] MEDS: CLONIDINE 0.1MG TABLET PO PRN ×3 (07:06→20:39)
[2020-01-21 08:00] VITALS: BP 171/93
[2020-01-21] MEDS: FUROSEMIDE 40MG/4ML VIAL IV SCH (08:48)
[2020-01-21] MEDS: ENOXAPARIN 30MG/0.3ML SYR SUBCUT SCH (08:49)
[2020-01-21] MEDS: ASPIRIN 81MG EC TABLET PO SCH (08:49)
[2020-01-21] MEDS: INSULIN REGULAR HUMAN (MEDIUM DOSE) 100 UNITS/ML 3ML VIAL SUBCUT SCH (08:58)
[2020-01-21] MEDS ORDERED: METOPROLOL TARTRATE 50MG TABLET PO SCH (09:00)
[2020-01-21] MEDS: IPRATROPIUM/ALBUTEROL 0.5-3(2.5)MG/3ML NEB NEB PRN (09:04)
[2020-01-21] MEDS ORDERED: TDUR2 MT (10:24)
[2020-01-21] MEDS: INSULIN GLARGINE UD 100 UNITS/ML SYR SUBCUT SCH (10:34)
[2020-01-21 12:00] VITALS: BP 184/92
[2020-01-21] MEDS ORDERED: BUDESONIDE 0.5MG/2ML NEB HHN SCH (12:00)
[2020-01-21] MEDS ORDERED: IPRATROPIUM/ALBUTEROL 0.5-3(2.5)MG/3ML NEB HHN SCH (12:00)
[2020-01-21] MEDS ORDERED: INSULIN REGULAR (HUMULIN R) 300UNITS/3ML SUBCUT SCH (12:50)
[2020-01-21] MEDS ORDERED: AMLODIPINE 10MG TABLET PO NR (13:00)
[2020-01-21] MEDS ORDERED: AMLODIPINE 10MG TABLET PO SCH (13:00)
[2020-01-21] MEDS: THEOPHYLLINE ANHYDROUS 80 MG/15 ML 120ML PO SCH ×2 (13:26→17:55)
[2020-01-21] MEDS: INSULIN REGULAR HUMAN (HIGH DOSE) 100 UNITS/ML 3ML VIAL SUBCUT SCH ×2 (13:30→17:55)
[2020-01-21 16:00] VITALS: BP 158/80
[2020-01-21 17:24] VITALS: BP 158/80
[2020-01-21] MEDS ORDERED: LEVOFLOXACIN 500MG PREMIX 100 ML IV SCH (21:00)
[2020-01-22] MEDS ORDERED: LEVOFLOXACIN 500MG TABLET PO SCH (21:00)
== END 2020-01-21 20:55 | disposition left against medical advice (07) | DRG 291 ==
LOC: ER 16:24 → 6WST 17:37 → EDBEDREQSVC 17:57 → EDBEDREQTM 17:57 → EDBEDREQ 17:57 → EDBEDREQTM 18:25 → EDBEDREQSVC 18:25 → ENRESERV 01-20 07:45
PROVIDERS: ADMIT Internal Medicine; ATTEND Internal Medicine
DX: I11.0 Hypertensive heart disease with heart failure (principal); J96.01 Acute respiratory failure with hypoxia; J44.1 Chronic obstructive pulmonary disease with (acute) exacerbation; I50.33 Acute on chronic diastolic (congestive) heart failure; E11.65 Type 2 diabetes mellitus with hyperglycemia; E78.5 Hyperlipidemia, unspecified; I25.10 Atherosclerotic heart disease of native coronary artery without angina pectoris; T38.0X5A Adverse effect of glucocorticoids and synthetic analogues, initial encounter; G43.909 Migraine, unspecified, not intractable, without status migrainosus; Z53.29 Procedure and treatment not carried out because of patient's decision for other reasons; G90.8 Other disorders of autonomic nervous system; E66.01 Morbid (severe) obesity due to excess calories; F12.90 Cannabis use, unspecified, uncomplicated; Z98.891 History of uterine scar from previous surgery; Z99.81 Dependence on supplemental oxygen; Z79.4 Long term (current) use of insulin; Z79.51 Long term (current) use of inhaled steroids; Z79.899 Other long term (current) drug therapy; Z68.35 Body mass index [BMI] 35.0-35.9, adult
CPT/HCPCS: 36415; 36600; 71045; 80048; 80053; 80061; 82375; 82805; 82962; 83880; 84439; 84443; 84484; 85025; 93005; 94640; 94644; 99285; J1650; J1815; J1940; J1956; J2930; J3490; J7626

== ENCOUNTER 2020-05-01 14:22 | Inpatient (IN) | payer MEDICARE, MEDICAID ==
[~2020-05-01] VITALS: Ht 185.4 cm; Wt 127.5 kg
[~2020-05-01 14:22] MED LIST changes: -LIDOCAINE HCL/PF 1% 2ML VIAL ONE; +TDUR2 MT
[2020-05-01] MEDS ORDERED: METHYLPREDNISOLONE SOD SUCC 125 MG/2 ML VIAL IV STA (14:36)
[2020-05-01] MEDS ORDERED: ASPIRIN 81MG TABLET PO ONE (14:45)
[2020-05-01] MEDS ORDERED: FUROSEMIDE 40MG/4ML VIAL IV ONE (14:45)
[2020-05-01] MEDS ORDERED: ALBUTEROL 6.7GM HFA INHALER ORI ONE (14:45)
[2020-05-01 15:46] LABS: BASOPHILS % 0.9 % (0.0-2.0); EOSINOPHILS % 2.2 % (0.0-5.0); HEMATOCRIT. 44.2 % (36.0-48.0); HEMOGLOBIN. 14.8 g/dL (12.0-16.0); LYMPHOCYTES % 32.6 % (20.0-50.0); MEAN CORPUSCULAR HEMOGLOBIN 28.3 pg (28.0-32.0); MEAN CORPUSCULAR VOLUME 84.6 fL (81.0-99.0); MEAN PLATELET VOLUME 8.8 fl (7.4-10.4); MONOCYTES % 13.8 % (2.0-8.0); NEUTROPHILS % 50.5 % (40.0-76.0); PLATELET 305 x1000/uL (130-400); RED BLOOD CELL COUNT 5.23 mill/uL (4.2-5.4); RED CELL DISTRIBUTION WIDTH 15.5 % (11.6-14.6)
[2020-05-01 15:52] LABS: CHLORIDE 109 mEq/L (98-107)
[2020-05-01 15:53] LABS: INR 0.9
[2020-05-01] MEDS ORDERED: DIPHENHYDRAMINE 50MG/ML VIAL IV PRN (19:00)
[2020-05-01] MEDS: CLONIDINE 0.1MG TABLET PO PRN (19:26)
[2020-05-01 19:30] LABS: PHOSPHORUS 3.8 mg/dL (2.5-4.9)
[2020-05-01] MEDS ORDERED: AZITHROMYCIN 500 MG in DEXT 5% WATER 250 ML IV SCH (19:30)
[2020-05-01 20:00] VITALS: BP 164/87
[2020-05-02] VITALS: BP 158/89
[2020-05-02] MEDS: METHYLPREDNISOLONE SOD SUCC 125 MG/2 ML VIAL IV SCH ×4 (01:53→13:49)
[2020-05-02 04:00] VITALS: BP 110/89
[2020-05-02] MEDS ORDERED: DEXTROSE 50% WATER 50ML SYRINGE IV PRN (06:15)
[2020-05-02 06:29] LABS: BASOPHILS % 0.5 % (0.0-2.0); HEMATOCRIT. 43.4 % (36.0-48.0); HEMOGLOBIN. 14.5 g/dL (12.0-16.0); LYMPHOCYTES % 12.4 % (20.0-50.0); MEAN CORPUSCULAR HEMOGLOBIN 28.7 pg (28.0-32.0); MEAN PLATELET VOLUME 9.2 fl (7.4-10.4); MONOCYTES % 1.6 % (2.0-8.0); NEUTROPHILS % 85.5 % (40.0-76.0); PLATELET 279 x1000/uL (130-400); RED BLOOD CELL COUNT 5.04 mill/uL (4.2-5.4); RED CELL DISTRIBUTION WIDTH 15.5 % (11.6-14.6)
[2020-05-02 06:31] LABS: CHLORIDE 108 mEq/L (98-107)
[2020-05-02 06:39] LABS: HDL CHOLESTEROL 80 mg/dL (40-59)
[2020-05-02 06:41] LABS: LDL CHOLESTEROL 136 mg/dL (5-100)
[2020-05-02 07:23] VITALS: BP 142/65
[2020-05-02] MEDS: BLOOD SUGAR DIAGNOSTIC STRIP TEST SCH ×4 (07:40→20:34)
[2020-05-02 08:00] VITALS: BP 164/89
[2020-05-02] MEDS: CLONIDINE 0.1MG TABLET PO PRN (09:52)
[2020-05-02] MEDS: INSULIN LISPRO 100 UNITS/ML SUBCUT SCH ×4 (09:53→20:36)
[2020-05-02] MEDS: AZITHROMYCIN 500 MG in DEXT 5% WATER 250 ML IV SCH ×2 (09:54→10:42)
[2020-05-02 12:00] VITALS: BP_SYST 20
[2020-05-02] MEDS: ENOXAPARIN 40MG/0.4ML SYR SUBCUT SCH (13:47)
[2020-05-02] MEDS: BENAZEPRIL 10MG TABLET PO SCH (13:48)
[2020-05-02] MEDS: METOPROLOL TARTRATE 50MG TABLET PO SCH ×2 (13:48→20:33)
[2020-05-02] MEDS: FUROSEMIDE 40MG/4ML VIAL IVP SCH (13:49)
[2020-05-02] MEDS: HYDROCODONE/ACETAMINOPHEN 5/325MG TABLET PO PRN ×2 (15:29→21:35)
[2020-05-02] MEDS ORDERED: ALBUTEROL 6.7GM HFA INHALER ORI SCH (16:00)
[2020-05-02] MEDS: ATORVASTATIN CALCIUM 40MG TABLET PO SCH (20:33)
[2020-05-02] MEDS: METHYLPREDNISOLONE SOD SUCC 40 MG/ML VIAL IV SCH (20:33)
[2020-05-02] MEDS: THEOPHYLLINE ANHYDROUS 80 MG/15 ML 120ML PO SCH (20:34)
[2020-05-02] MEDS: INSULIN GLARGINE UD 100 UNITS/ML SYR SUBCUT SCH (21:37)
[2020-05-02] MEDS ORDERED: HYDROCODONE/ACETAMINOPHEN 5/325MG TABLET PO PRN (23:15)
[2020-05-03] VITALS (7 sets, daily range): BP systolic 155–180; BP diastolic 73–100
[2020-05-03] MEDS: CLONIDINE 0.1MG TABLET PO PRN ×3 (00:08→16:48)
[2020-05-03] MEDS ORDERED: ALBUTEROL (0.083%) 2.5MG/3ML NEB HHN SCH (01:00)
[2020-05-03] MEDS: THEOPHYLLINE ANHYDROUS 80 MG/15 ML 120ML PO SCH ×3 (06:15→21:16)
[2020-05-03] MEDS: BLOOD SUGAR DIAGNOSTIC STRIP TEST SCH ×4 (06:25→20:33)
[2020-05-03 06:33] LABS: BASOPHILS % 0.3 % (0.0-2.0); HEMOGLOBIN. 13.6 g/dL (12.0-16.0); LYMPHOCYTES % 7.1 % (20.0-50.0); MEAN CORPUSCULAR HEMOGLOBIN 28.1 pg (28.0-32.0); MEAN CORPUSCULAR VOLUME 84.8 fL (81.0-99.0); MEAN PLATELET VOLUME 9.6 fl (7.4-10.4); MONOCYTES % 3.2 % (2.0-8.0); NEUTROPHILS % 89.4 % (40.0-76.0); PLATELET 265 x1000/uL (130-400); RED BLOOD CELL COUNT 4.84 mill/uL (4.2-5.4); RED CELL DISTRIBUTION WIDTH 15.2 % (11.6-14.6)
[2020-05-03 06:35] LABS: CHLORIDE 106 mEq/L (98-107)
[2020-05-03 06:44] LABS: T4 FREE 0.89 ng/dL (0.76-1.46)
[2020-05-03] MEDS: ENOXAPARIN 40MG/0.4ML SYR SUBCUT SCH (08:23)
[2020-05-03] MEDS: FUROSEMIDE 40MG/4ML VIAL IVP SCH ×3 (08:23→11:03)
[2020-05-03] MEDS: BENAZEPRIL 10MG TABLET PO SCH (08:23)
[2020-05-03] MEDS: METHYLPREDNISOLONE SOD SUCC 40 MG/ML VIAL IV SCH ×2 (08:23→20:45)
[2020-05-03] MEDS: METOPROLOL TARTRATE 50MG TABLET PO SCH ×2 (08:24→20:44)
[2020-05-03] MEDS: INSULIN LISPRO 100 UNITS/ML SUBCUT SCH ×4 (08:25→20:45)
[2020-05-03] MEDS: ALBUTEROL (0.083%) 2.5MG/3ML NEB HHN SCH ×2 (08:43→13:15)
[2020-05-03] MEDS: INSULIN GLARGINE UD 100 UNITS/ML SYR SUBCUT SCH ×2 (11:05→21:29)
[2020-05-03 14:09] LABS: CLARITY URINE CLEAR (CLEAR); COLOR URINE YELLOW (YELLOW); KETONES URINE NEGATIVE (NEGATIVE); LEUKOCYTE ESTERASE URINE NEGATIVE (NEGATIVE); NITRITE URINE NEGATIVE (NEGATIVE); OCCULT BLOOD URINE NEGATIVE (NEGATIVE); PROTEIN URINE NEGATIVE (NEGATIVE); SPECIFIC GRAVITY URINE 1.011 (1.005-1.030); UROBILINOGEN URINE 0.2 E.U./dL (0.2-1.0)
[2020-05-03 14:36] LABS: *AMPHETAMINES SCREEN URINE NEGATIVE (NEGATIVE); *BARBITURATES SCREEN URINE NEGATIVE (NEGATIVE); *BENZODIAZEPINES SCREEN URINE NEGATIVE (NEGATIVE); *COCAINE SCREEN URINE PRESUMTIVE POSITIVE (NEGATIVE); METHADONE URINE SCREEN NEGATIVE (NEGATIVE)
[2020-05-03 14:37] LABS: CANNABINOID URINE SCREEN NEGATIVE (NEGATIVE); OPIATES URINE SCREEN PRESUMTIVE POSITIVE (NEGATIVE); PHENCYCLIDINE URINE SCREEN NEGATIVE (NEGATIVE)
[2020-05-03 16:11] LABS: T4 FREE 1.12 ng/dL (0.76-1.46)
[2020-05-03 16:13] LABS: CREATINE KINASE 97 IU/L (26-192)
[2020-05-03 16:14] LABS: CREATINE KINASE MB FRACTION 1.9 ng/mL (0.5-3.6)
[2020-05-03] MEDS: HYDROCODONE/ACETAMINOPHEN 10/325MG TABLET PO PRN (18:02)
[2020-05-03] MEDS ORDERED: AMLODIPINE 5MG TABLET PO NR (18:15)
[2020-05-03] MEDS: ATORVASTATIN CALCIUM 40MG TABLET PO SCH (20:43)
[2020-05-04] VITALS (7 sets, daily range): BP systolic 154–179; BP diastolic 86–100
[2020-05-04] MEDS: CLONIDINE 0.1MG TABLET PO PRN ×2 (00:25→13:39)
[2020-05-04 01:20] LABS: CREATINE KINASE 82 IU/L (26-192)
[2020-05-04 01:21] LABS: CREATINE KINASE MB FRACTION 1.8 ng/mL (0.5-3.6)
[2020-05-04] MEDS: BLOOD SUGAR DIAGNOSTIC STRIP TEST SCH ×4 (06:36→21:00)
[2020-05-04 06:47] LABS: CREATINE KINASE 66 IU/L (26-192)
[2020-05-04 06:48] LABS: CREATINE KINASE MB FRACTION 1.8 ng/mL (0.5-3.6)
[2020-05-04] MEDS: THEOPHYLLINE ANHYDROUS 80 MG/15 ML 120ML PO SCH ×3 (06:50→22:32)
[2020-05-04] MEDS: METHYLPREDNISOLONE SOD SUCC 40 MG/ML VIAL IV SCH ×2 (08:50→22:27)
[2020-05-04] MEDS: FUROSEMIDE 40MG/4ML VIAL IVP SCH (08:51)
[2020-05-04] MEDS: HYDROCODONE/ACETAMINOPHEN 10/325MG TABLET PO PRN (08:53)
[2020-05-04] MEDS: METOPROLOL TARTRATE 50MG TABLET PO SCH ×2 (08:54→22:29)
[2020-05-04] MEDS: ENOXAPARIN 40MG/0.4ML SYR SUBCUT SCH (08:54)
[2020-05-04] MEDS: AMLODIPINE 5MG TABLET PO SCH ×2 (08:55→22:30)
[2020-05-04] MEDS: BENAZEPRIL 10MG TABLET PO SCH (08:55)
[2020-05-04] MEDS: INSULIN LISPRO 100 UNITS/ML SUBCUT SCH ×4 (08:57→22:31)
[2020-05-04] MEDS: ALBUTEROL (0.083%) 2.5MG/3ML NEB HHN SCH (10:02)
[2020-05-04] MEDS: AZITHROMYCIN 500 MG in DEXT 5% WATER 250 ML IV SCH (10:03)
[2020-05-04] MEDS: INSULIN GLARGINE UD 100 UNITS/ML SYR SUBCUT SCH ×2 (10:33→22:32)
[2020-05-04] MEDS ORDERED: ALBUTEROL (0.083%) 2.5MG/3ML NEB HHN PRN (14:58)
[2020-05-04] MEDS: ATORVASTATIN CALCIUM 40MG TABLET PO SCH (22:27)
[2020-05-05] VITALS: BP 172/84
[2020-05-05 04:00] VITALS: BP 186/96
[2020-05-05] MEDS: CLONIDINE 0.1MG TABLET PO PRN ×2 (04:17→13:43)
[2020-05-05] MEDS: THEOPHYLLINE ANHYDROUS 80 MG/15 ML 120ML PO SCH ×2 (06:01→14:00)
[2020-05-05] MEDS: BLOOD SUGAR DIAGNOSTIC STRIP TEST SCH ×4 (06:16→21:18)
[2020-05-05 07:21] LABS: BASOPHILS % 0.2 % (0.0-2.0); HEMATOCRIT. 44.9 % (36.0-48.0); LYMPHOCYTES % 10.1 % (20.0-50.0); MEAN CORPUSCULAR HEMOGLOBIN 28.4 pg (28.0-32.0); MEAN PLATELET VOLUME 9.5 fl (7.4-10.4); MONOCYTES % 5.5 % (2.0-8.0); NEUTROPHILS % 84.2 % (40.0-76.0); PLATELET 289 x1000/uL (130-400); RED BLOOD CELL COUNT 5.28 mill/uL (4.2-5.4); RED CELL DISTRIBUTION WIDTH 15.1 % (11.6-14.6)
[2020-05-05 07:49] LABS: CHLORIDE 103 mEq/L (98-107)
[2020-05-05 07:56] VITALS: BP 180/94
[2020-05-05] MEDS: INSULIN LISPRO 100 UNITS/ML SUBCUT SCH ×4 (08:48→21:14)
[2020-05-05] MEDS: BENAZEPRIL 10MG TABLET PO SCH (09:00)
[2020-05-05] MEDS: ENOXAPARIN 40MG/0.4ML SYR SUBCUT SCH (09:00)
[2020-05-05] MEDS: FUROSEMIDE 40MG/4ML VIAL IVP SCH (09:00)
[2020-05-05] MEDS ORDERED: AZITHROMYCIN 500 MG TABLET PO SCH (09:00)
[2020-05-05] MEDS: METHYLPREDNISOLONE SOD SUCC 40 MG/ML VIAL IV SCH (09:00)
[2020-05-05] MEDS: AMLODIPINE 5MG TABLET PO SCH ×2 (09:00→21:02)
[2020-05-05] MEDS: METOPROLOL TARTRATE 50MG TABLET PO SCH ×2 (09:00→21:01)
[2020-05-05] MEDS: INSULIN GLARGINE UD 100 UNITS/ML SYR SUBCUT SCH ×2 (10:00→21:16)
[2020-05-05 11:25] VITALS: BP 183/97
[2020-05-05] MEDS ORDERED: IOHEXOL-300 100 ML BOTTLE ONE (11:37)
[2020-05-05] MEDS ORDERED: MIDAZOLAM HCL 2 MG/2 ML VIAL ONE (11:37)
[2020-05-05] MEDS ORDERED: LIDOCAINE HCL 1% 20ML VIAL (Pyxis) INJ ONE (11:37)
[2020-05-05] MEDS ORDERED: FENTANYL CITRATE/PF 50MCG/ML 2ML VIAL ONE (11:37)
[2020-05-05] MEDS ORDERED: ATROPINE SULFATE 1MG/10ML SYR IV PRN (12:45)
[2020-05-05] MEDS: HYDROCODONE/ACETAMINOPHEN 10/325MG TABLET PO PRN ×2 (14:05→21:29)
[2020-05-05] MEDS ORDERED: AMLODIPINE 5MG TABLET PO SCH (15:15)
[2020-05-05] MEDS ORDERED: BENAZEPRIL 10MG TABLET PO SCH (16:30)
[2020-05-05] MEDS ORDERED: BUDESONIDE 0.5MG/2ML NEB HHN SCH (17:00)
[2020-05-05 17:25] VITALS: BP 170/89
[2020-05-05 20:00] VITALS: BP 163/93
[2020-05-05] MEDS: ATORVASTATIN CALCIUM 40MG TABLET PO SCH (21:01)
[2020-05-05] MEDS: IPRATROPIUM/ALBUTEROL 0.5-3(2.5)MG/3ML NEB HHN SCH (22:01)
[2020-05-06] VITALS: BP 152/92
[2020-05-06] MEDS: THEOPHYLLINE ANHYDROUS 80 MG/15 ML 120ML PO SCH ×3 (02:12→13:24)
[2020-05-06] MEDS: IPRATROPIUM/ALBUTEROL 0.5-3(2.5)MG/3ML NEB HHN SCH ×3 (03:15→14:20)
[2020-05-06 04:00] VITALS: BP 137/73
[2020-05-06 06:25] LABS: CHLORIDE 103 mEq/L (98-107)
[2020-05-06 06:35] LABS: BASOPHILS % 0.1 % (0.0-2.0); EOSINOPHILS % 0.3 % (0.0-5.0); HEMATOCRIT. 44.9 % (36.0-48.0); HEMOGLOBIN. 15.1 g/dL (12.0-16.0); LYMPHOCYTES % 37.5 % (20.0-50.0); MEAN CORPUSCULAR HEMOGLOBIN 28.5 pg (28.0-32.0); MEAN CORPUSCULAR VOLUME 84.9 fL (81.0-99.0); MEAN PLATELET VOLUME 9.1 fl (7.4-10.4); MONOCYTES % 11.1 % (2.0-8.0); PLATELET 264 x1000/uL (130-400); RED BLOOD CELL COUNT 5.29 mill/uL (4.2-5.4); RED CELL DISTRIBUTION WIDTH 15.1 % (11.6-14.6)
[2020-05-06] MEDS: BLOOD SUGAR DIAGNOSTIC STRIP TEST SCH ×2 (06:47→13:10)
[2020-05-06 08:00] VITALS: BP 151/99
[2020-05-06] MEDS ORDERED: PREDNISONE 20MG TABLET PO SCH (09:00)
[2020-05-06] MEDS: ENOXAPARIN 40MG/0.4ML SYR SUBCUT SCH (09:45)
[2020-05-06] MEDS: METOPROLOL TARTRATE 50MG TABLET PO SCH (09:46)
[2020-05-06] MEDS: BENAZEPRIL 10MG TABLET PO SCH (09:46)
[2020-05-06] MEDS: AMLODIPINE 5MG TABLET PO SCH (09:47)
[2020-05-06] MEDS: FUROSEMIDE 40MG/4ML VIAL IVP SCH (09:48)
[2020-05-06] MEDS: HYDROCODONE/ACETAMINOPHEN 10/325MG TABLET PO PRN (09:48)
[2020-05-06] MEDS: INSULIN LISPRO 100 UNITS/ML SUBCUT SCH ×2 (09:50→13:25)
[2020-05-06] MEDS: INSULIN GLARGINE UD 100 UNITS/ML SYR SUBCUT SCH (09:50)
[2020-05-06] MEDS ORDERED: AMLO5TAB88 PO (11:55)
[2020-05-06 12:00] VITALS: BP 153/96
[2020-05-06] MEDS: CLONIDINE 0.1MG TABLET PO PRN (13:15)
== END 2020-05-06 18:00 | disposition home or self-care (01) | DRG 286 ==
LOC: ER 15:14 → 7WST 18:48 → EDBEDREQ 18:59 → EDBEDREQTM 18:59 → ENRESERV 20:05 → 7WST 05-02 13:22 → 6WST 05-02 23:32
PROVIDERS: ADMIT Internal Medicine; ATTEND Internal Medicine
PROC: B2111ZZ Fluoroscopy of Multiple Coronary Arteries using Low Osmolar Contrast (ICD-10-PCS; principal; 2020-05-05)
PROC: 4A023N8 Measurement of Cardiac Sampling and Pressure, Bilateral, Percutaneous Approach (ICD-10-PCS; 2020-05-05)
PROC: B2151ZZ Fluoroscopy of Left Heart using Low Osmolar Contrast (ICD-10-PCS; 2020-05-05)
DX: I11.0 Hypertensive heart disease with heart failure (principal); J96.00 Acute respiratory failure, unspecified whether with hypoxia or hypercapnia; J44.1 Chronic obstructive pulmonary disease with (acute) exacerbation; I16.1 Hypertensive emergency; I50.33 Acute on chronic diastolic (congestive) heart failure; E78.5 Hyperlipidemia, unspecified; E11.65 Type 2 diabetes mellitus with hyperglycemia; E66.01 Morbid (severe) obesity due to excess calories; I25.10 Atherosclerotic heart disease of native coronary artery without angina pectoris; I27.20 Pulmonary hypertension, unspecified; D72.810 Lymphocytopenia; M54.9 Dorsalgia, unspecified; Z79.4 Long term (current) use of insulin; Z79.84 Long term (current) use of oral hypoglycemic drugs; Z79.899 Other long term (current) drug therapy; Z68.37 Body mass index [BMI] 37.0-37.9, adult; Y92.89 Other specified places as the place of occurrence of the external cause; Z79.51 Long term (current) use of inhaled steroids; Z03.818 Encounter for observation for suspected exposure to other biological agents ruled out
CPT/HCPCS: 36415; 71045; 80048; 80053; 80061; 80305; 81003; 82550; 82553; 82962; 83036; 83735; 83880; 84100; 84439; 84443; 84481; 84484; 85025; 85379; 93005; 93306; 93460; 94640; 99285; C1760; C1769; C1887; C1893; J0456; J1644; J1650; J1815; J1940; J2250; J2920; J2930; J3010; J3490; J7060; J7512; J7626; Q9967; U0003-CS

== ENCOUNTER 2020-07-04 09:50 | Inpatient (IN) | payer MEDICARE, MEDICAID ==
[~2020-07-04] VITALS: Ht 170.2 cm; Wt 120.7 kg
[~2020-07-04 09:50] MED LIST changes: +AMLO5TAB88 PO; -BENA20TA10 MT
[2020-07-04] MEDS ORDERED: HYDR-4134 MT (10:11)
[2020-07-04] MEDS ORDERED: TIOT18CA3 IH (10:11)
[2020-07-04] MEDS ORDERED: HYDR-4009 PO (10:11)
[2020-07-04] MEDS ORDERED: ALBUTEROL (0.5%) 2.5MG/0.5ML NEB HHN ONE ×2 (12:00→15:30)
[2020-07-04] MEDS ORDERED: IPRATROPIUM BROMIDE (0.02%) 0.5MG/2.5ML NEB HHN ONE ×2 (12:00→15:30)
[2020-07-04] MEDS ORDERED: METHYLPREDNISOLONE SOD SUCC 125 MG/2 ML VIAL IV ONE (12:00)
[2020-07-04] MEDS ORDERED: CLONIDINE 0.2MG TABLET PO ONE (12:30)
[2020-07-04] MEDS ORDERED: NITROGLYCERIN OINT 1GM/INCH UDPKT TD ONE (12:30)
[2020-07-04 12:51] LABS: BASOPHILS % 1.1 % (0.0-2.0); HEMATOCRIT. 43.7 % (36.0-48.0); HEMOGLOBIN. 14.6 g/dL (12.0-16.0); LYMPHOCYTES % 35.5 % (20.0-50.0); MEAN CORPUSCULAR HEMOGLOBIN 28.6 pg (28.0-32.0); MEAN CORPUSCULAR VOLUME 85.9 fL (81.0-99.0); MEAN PLATELET VOLUME 9.3 fl (7.4-10.4); MONOCYTES % 13.4 % (2.0-8.0); PLATELET 266 x1000/uL (130-400); RED BLOOD CELL COUNT 5.09 mill/uL (4.2-5.4); RED CELL DISTRIBUTION WIDTH 15.5 % (11.6-14.6)
[2020-07-04 13:00] LABS: BG BASE EXCESS 0.3 mmol/L (-2.0-2.0); BG HCO3 ACT 24.9 mmol/L (22.0-26.0); BG METHEMOGLOBIN 0.1 % (0.0-1.5); BG OXYHEMOGLOBIN 96.9 % (94.0-97.0); BG PCO2 40.1 mmHg (35.0-45.0); BG PH 7.411 (7.350-7.450); BG SAMPLE SITE RIGHT RADIAL; BG TOTAL HEMOGLOBIN 14.5 g/dL (12.0-18.0); BG VENT MODE NASAL CANNULA
[2020-07-04] MEDS ORDERED: IPRATROPIUM/ALBUTEROL 0.5-3(2.5)MG/3ML NEB HHN PRN (16:30)
[2020-07-04] MEDS ORDERED: DIPHENHYDRAMINE 50MG/ML VIAL IV PRN (16:30)
[2020-07-04] MEDS ORDERED: HYDRALAZINE 20MG/ML VIAL IV PRN (16:30)
[2020-07-04] MEDS ORDERED: DOCUSATE SODIUM 100MG CAPSULE PO PRN (16:30)
[2020-07-04] MEDS ORDERED: METHYLPREDNISOLONE SOD SUCC 125 MG/2 ML VIAL IV SCH (16:30)
[2020-07-04] MEDS ORDERED: ACETAMINOPHEN 325MG TABLET PO PRN (16:30)
[2020-07-04] MEDS ORDERED: MAGNESIUM/ALUMINUM HYDROXIDE/SIMETHICONE 30ML UDC PO PRN (16:30)
[2020-07-04] MEDS ORDERED: ONDANSETRON HCL 4MG/2ML INJ IV PRN (16:30)
[2020-07-04] MEDS ORDERED: GUAIFENESIN 200MG/10ML SUGAR FREE UDC PO PRN (16:30)
[2020-07-04] MEDS ORDERED: DEXTROSE 50% WATER 50ML SYRINGE IV PRN (16:45)
[2020-07-04] MEDS: FUROSEMIDE 40MG TABLET PO SCH (17:40)
[2020-07-04] MEDS: BLOOD SUGAR DIAGNOSTIC STRIP TEST SCH ×2 (17:40→21:00)
[2020-07-04] MEDS ORDERED: ENOXAPARIN 40MG/0.4ML SYR SUBCUT SCH (18:00)
[2020-07-04 18:51] LABS: CHLORIDE 100 mEq/L (98-107)
[2020-07-04] MEDS: INSULIN LISPRO 100 UNITS/ML SUBCUT SCH ×2 (19:12→21:00)
[2020-07-04] MEDS: METHYLPREDNISOLONE SOD SUCC 40 MG/ML VIAL IV SCH (20:13)
[2020-07-04] MEDS: IPRATROPIUM/ALBUTEROL 0.5-3(2.5)MG/3ML NEB NEB SCH (20:15)
[2020-07-04] MEDS: ENOXAPARIN 30MG/0.3ML SYR SUBCUT SCH (21:00)
[2020-07-04] MEDS: AMLODIPINE 5MG TABLET PO SCH (21:00)
[2020-07-04] MEDS: ATORVASTATIN CALCIUM 40MG TABLET PO SCH (21:00)
[2020-07-04] MEDS ORDERED: INSULIN GLARGINE UD 100 UNITS/ML SYR SUBCUT SCH (22:00)
[2020-07-04] MEDS: SODIUM CHLORIDE 0.9% INJ 3ML FLUSH IVF SCH (22:00)
[2020-07-05] VITALS (7 sets, daily range): BP systolic 142–178; BP diastolic 67–95
[2020-07-05] MEDS: ALBUTEROL 6.7GM HFA INHALER INH SCH ×2 (04:01→12:00)
[2020-07-05] MEDS: METHYLPREDNISOLONE SOD SUCC 40 MG/ML VIAL IV SCH ×3 (05:02→20:22)
[2020-07-05] MEDS: SODIUM CHLORIDE 0.9% INJ 3ML FLUSH IVF SCH ×3 (05:04→21:17)
[2020-07-05] MEDS: CLONIDINE 0.1MG TABLET PO PRN ×2 (05:20→13:26)
[2020-07-05 06:46] LABS: BASOPHILS % 0.4 % (0.0-2.0); HEMATOCRIT. 41.5 % (36.0-48.0); HEMOGLOBIN. 13.9 g/dL (12.0-16.0); LYMPHOCYTES % 12.9 % (20.0-50.0); MEAN CORPUSCULAR HEMOGLOBIN 28.6 pg (28.0-32.0); MEAN CORPUSCULAR VOLUME 85.4 fL (81.0-99.0); MONOCYTES % 4.4 % (2.0-8.0); NEUTROPHILS % 82.3 % (40.0-76.0); PLATELET 280 x1000/uL (130-400); RED BLOOD CELL COUNT 4.86 mill/uL (4.2-5.4); RED CELL DISTRIBUTION WIDTH 15.7 % (11.6-14.6)
[2020-07-05] MEDS: BLOOD SUGAR DIAGNOSTIC STRIP TEST SCH ×4 (06:56→20:03)
[2020-07-05 07:01] LABS: CHLORIDE 99 mEq/L (98-107)
[2020-07-05] MEDS: INSULIN LISPRO 100 UNITS/ML SUBCUT SCH ×4 (08:50→20:26)
[2020-07-05] MEDS: AMLODIPINE 5MG TABLET PO SCH ×2 (10:02→20:22)
[2020-07-05] MEDS: ENOXAPARIN 30MG/0.3ML SYR SUBCUT SCH ×2 (10:02→20:22)
[2020-07-05] MEDS: FUROSEMIDE 40MG TABLET PO SCH (10:02)
[2020-07-05] MEDS: INSULIN GLARGINE UD 100 UNITS/ML SYR SUBCUT SCH ×2 (13:25→21:16)
[2020-07-05] MEDS: HYDROCODONE/ACETAMINOPHEN 10/325MG TABLET PO PRN (13:26)
[2020-07-05] MEDS: IPRATROPIUM/ALBUTEROL 0.5-3(2.5)MG/3ML NEB NEB SCH ×2 (17:48→20:15)
[2020-07-05] MEDS: ATORVASTATIN CALCIUM 40MG TABLET PO SCH (20:25)
[2020-07-05] MEDS: LORAZEPAM 2MG/ML CPJ IV PRN (20:39)
[2020-07-06] VITALS (7 sets, daily range): BP systolic 145–165; BP diastolic 70–89
[2020-07-06] MEDS: IPRATROPIUM/ALBUTEROL 0.5-3(2.5)MG/3ML NEB NEB SCH ×4 (02:08→21:03)
[2020-07-06] MEDS ORDERED: ALBUTEROL (0.083%) 2.5MG/3ML NEB INH SCH ×2 (04:00→04:37)
[2020-07-06] MEDS: METHYLPREDNISOLONE SOD SUCC 40 MG/ML VIAL IV SCH ×3 (04:18→21:31)
[2020-07-06] MEDS: SODIUM CHLORIDE 0.9% INJ 3ML FLUSH IVF SCH ×3 (05:00→21:32)
[2020-07-06] MEDS: BLOOD SUGAR DIAGNOSTIC STRIP TEST SCH ×4 (05:44→20:39)
[2020-07-06] MEDS: INSULIN LISPRO 100 UNITS/ML SUBCUT SCH ×4 (06:25→21:34)
[2020-07-06] MEDS: AMLODIPINE 5MG TABLET PO SCH ×2 (08:19→21:31)
[2020-07-06] MEDS: FUROSEMIDE 40MG TABLET PO SCH (08:19)
[2020-07-06] MEDS: ENOXAPARIN 30MG/0.3ML SYR SUBCUT SCH ×2 (08:20→21:31)
[2020-07-06] MEDS: INSULIN GLARGINE UD 100 UNITS/ML SYR SUBCUT SCH ×2 (10:21→21:35)
[2020-07-06] MEDS: CLONIDINE 0.1MG TABLET PO PRN (11:56)
[2020-07-06] MEDS: HYDROCODONE/ACETAMINOPHEN 10/325MG TABLET PO PRN (17:53)
[2020-07-06] MEDS: ATORVASTATIN CALCIUM 40MG TABLET PO SCH (21:31)
[2020-07-06] MEDS: LORAZEPAM 2MG/ML CPJ IV PRN (21:31)
[2020-07-07] VITALS: BP 167/86
[2020-07-07] MEDS: IPRATROPIUM/ALBUTEROL 0.5-3(2.5)MG/3ML NEB NEB SCH ×3 (01:40→13:54)
[2020-07-07] MEDS: CLONIDINE 0.1MG TABLET PO PRN (01:46)
[2020-07-07 04:00] VITALS: BP_SYST 152; BP_SYST 165; BP_DIAS 79; BP_DIAS 85
[2020-07-07] MEDS: METHYLPREDNISOLONE SOD SUCC 40 MG/ML VIAL IV SCH ×2 (04:30→11:30)
[2020-07-07] MEDS: SODIUM CHLORIDE 0.9% INJ 3ML FLUSH IVF SCH ×2 (04:56→14:41)
[2020-07-07] MEDS: BLOOD SUGAR DIAGNOSTIC STRIP TEST SCH ×2 (05:46→11:30)
[2020-07-07] MEDS: INSULIN LISPRO 100 UNITS/ML SUBCUT SCH ×2 (06:17→11:31)
[2020-07-07 08:00] VITALS: BP 154/86
[2020-07-07] MEDS: HYDROCODONE/ACETAMINOPHEN 10/325MG TABLET PO PRN (08:19)
[2020-07-07] MEDS: ENOXAPARIN 30MG/0.3ML SYR SUBCUT SCH (09:25)
[2020-07-07] MEDS: AMLODIPINE 5MG TABLET PO SCH (09:26)
[2020-07-07] MEDS: INSULIN GLARGINE UD 100 UNITS/ML SYR SUBCUT SCH (09:27)
[2020-07-07] MEDS: FUROSEMIDE 40MG TABLET PO SCH (09:27)
[2020-07-07 12:00] VITALS: BP 156/79
[2020-07-07 13:50] VITALS: BP 156/79
== END 2020-07-07 15:25 | disposition home health service (06) | DRG 189 ==
LOC: ER 09:50 → EDBEDREQ 13:19 → EDBEDREQTM 13:28 → ENRESERV 20:10 → 7WST 23:52 → 5WST 07-05 15:05
PROVIDERS: ADMIT Internal Medicine; ATTEND Internal Medicine
DX: J96.00 Acute respiratory failure, unspecified whether with hypoxia or hypercapnia (principal); J44.1 Chronic obstructive pulmonary disease with (acute) exacerbation; Z68.41 Body mass index [BMI] 40.0-44.9, adult; I50.32 Chronic diastolic (congestive) heart failure; I11.0 Hypertensive heart disease with heart failure; Z79.4 Long term (current) use of insulin; E11.9 Type 2 diabetes mellitus without complications; E66.9 Obesity, unspecified; E78.5 Hyperlipidemia, unspecified; Z79.899 Other long term (current) drug therapy; Z79.51 Long term (current) use of inhaled steroids; Z03.818 Encounter for observation for suspected exposure to other biological agents ruled out; M79.18 Myalgia, other site
CPT/HCPCS: 36415; 36600; 71045; 80048; 80053; 82375; 82805; 82962; 83036; 83880; 84484; 85025; 85379; 87635; 93005; 94640; 96374; 99291; J0360; J1650; J1815; J2060; J2405; J2920; J2930

== ENCOUNTER 2020-10-01 09:16 | Inpatient (IN) | payer MEDICARE, MEDICAID ==
[~2020-10-01] VITALS: Ht 167.6 cm; Wt 112.9 kg
[~2020-10-01 09:16] MED LIST changes: +HYDR-4009 PO; +HYDR-4134 MT; -METO-539 PO; +TIOT18CA3 IH
[2020-10-01] MEDS ORDERED: NITROGLYCERIN 0.4MG TABLET SL SL PRN (09:30)
[2020-10-01] MEDS ORDERED: PREDNISONE 20MG TABLET PO STA (09:41)
[2020-10-01] MEDS ORDERED: IPRATROPIUM BROMIDE (0.02%) 0.5MG/2.5ML NEB HHN STA (09:41)
[2020-10-01] MEDS ORDERED: FUROSEMIDE 40MG/4ML VIAL IV ONE (09:45)
[2020-10-01] MEDS ORDERED: NITROGLYCERIN OINT 1GM/INCH UDPKT TD ONE (09:45)
[2020-10-01 10:11] LABS: BASOPHILS % 1.8 % (0.0-2.0); EOSINOPHILS % 1.7 % (0.0-5.0); HEMATOCRIT. 44.6 % (36.0-48.0); HEMOGLOBIN. 15.7 g/dL (12.0-16.0); LYMPHOCYTES % 38.3 % (20.0-50.0); MEAN CORPUSCULAR HEMOGLOBIN 30.6 pg (28.0-32.0); MEAN CORPUSCULAR VOLUME 87.1 fL (81.0-99.0); MEAN PLATELET VOLUME 9.6 fl (7.4-10.4); MONOCYTES % 13.3 % (2.0-8.0); NEUTROPHILS % 44.9 % (40.0-76.0); PLATELET 258 x1000/uL (130-400); RED BLOOD CELL COUNT 5.12 mill/uL (4.2-5.4); RED CELL DISTRIBUTION WIDTH 14.3 % (11.6-14.6)
[2020-10-01 10:18] LABS: CHLORIDE 97 mEq/L (98-107)
[2020-10-01] MEDS: ALBUTEROL (0.083%) 2.5MG/3ML NEB HHN SCH ×3 (11:10→12:16)
[2020-10-01] MEDS ORDERED: INSULIN REGULAR (HUMULIN R) 300UNITS/3ML VIAL IV ONE (13:30)
[2020-10-01 14:20] VITALS: BP 160/93
[2020-10-01] MEDS ORDERED: HYDR100T26 PO (14:53)
[2020-10-01] MEDS ORDERED: METR500T MT (14:53)
[2020-10-01] MEDS ORDERED: TIZA4CAP6 MT (14:53)
[2020-10-01] MEDS ORDERED: CLON0.2T PO (14:53)
[2020-10-01] MEDS ORDERED: ENOXAPARIN 40MG/0.4ML SYR SUBCUT SCH (15:15)
[2020-10-01] MEDS ORDERED: ACETAMINOPHEN 325MG TABLET PO PRN (15:15)
[2020-10-01] MEDS ORDERED: DIPHENHYDRAMINE 50MG/ML VIAL IV PRN (15:15)
[2020-10-01] MEDS ORDERED: ONDANSETRON HCL 4MG/2ML INJ IV PRN (15:15)
[2020-10-01 16:20] VITALS: BP 160/93
[2020-10-01 16:30] VITALS: BP 161/78
[2020-10-01 16:37] LABS: PHOSPHORUS 3.4 mg/dL (2.5-4.9)
[2020-10-01] MEDS ORDERED: DEXTROSE 50% WATER 50ML SYRINGE IV PRN ×2 (16:45)
[2020-10-01] MEDS ORDERED: NON FORMULARY PATIENT HOME MED PO SCH (17:00)
[2020-10-01] MEDS: METHYLPREDNISOLONE SOD SUCC 125 MG/2 ML VIAL IV SCH ×2 (17:26→21:56)
[2020-10-01] MEDS: HYDRALAZINE HCL 100MG TABLET PO SCH (17:26)
[2020-10-01] MEDS: CLONIDINE 0.2MG TABLET PO SCH (17:27)
[2020-10-01] MEDS: BLOOD SUGAR DIAGNOSTIC STRIP TEST SCH ×2 (17:33→21:22)
[2020-10-01] MEDS: INSULIN LISPRO 100 UNITS/ML SUBCUT SCH ×2 (17:46→21:59)
[2020-10-01] MEDS: HYDROCODONE/ACETAMINOPHEN 10/325MG TABLET PO PRN (17:53)
[2020-10-01] MEDS ORDERED: *PATIENT'S OWN MEDICATION STORAGE XX SCH (18:15)
[2020-10-01] MEDS: THEOPHYLLINE ANHYDROUS 80 MG/15 ML 120ML PO SCH (18:32)
[2020-10-01 20:00] VITALS: BP 167/90
[2020-10-01] MEDS: AMLODIPINE 5MG TABLET PO SCH (21:00)
[2020-10-01] MEDS ORDERED: INSULIN LISPRO 100 UNITS/ML SUBCUT NR (21:45)
[2020-10-01] MEDS: ATORVASTATIN CALCIUM 40MG TABLET PO SCH (21:55)
[2020-10-01] MEDS: METRONIDAZOLE 500MG TABLET PO SCH (21:55)
[2020-10-01] MEDS: ZOLPIDEM TARTRATE 5MG TABLET PO PRN (21:55)
[2020-10-01] MEDS: ENOXAPARIN 30MG/0.3ML SYR SUBCUT SCH (21:57)
[2020-10-01] MEDS: INSULIN GLARGINE UD 100 UNITS/ML SYR SUBCUT SCH (22:03)
[2020-10-01] MEDS: CLONIDINE 0.1MG TABLET PO PRN (22:44)
[2020-10-01] MEDS: IPRATROPIUM/ALBUTEROL 0.5-3(2.5)MG/3ML NEB HHN PRN (23:12)
[2020-10-02] VITALS (7 sets, daily range): BP systolic 148–192; BP diastolic 79–104
[2020-10-02] MEDS: THEOPHYLLINE ANHYDROUS 80 MG/15 ML 120ML PO SCH ×5 (00:20→23:50)
[2020-10-02] MEDS: HYDROCODONE/ACETAMINOPHEN 10/325MG TABLET PO PRN ×3 (00:38→21:52)
[2020-10-02] MEDS: METHYLPREDNISOLONE SOD SUCC 125 MG/2 ML VIAL IV SCH ×4 (04:27→21:35)
[2020-10-02] MEDS: BLOOD SUGAR DIAGNOSTIC STRIP TEST SCH ×4 (06:00→21:25)
[2020-10-02] MEDS: INSULIN LISPRO 100 UNITS/ML SUBCUT SCH ×4 (06:00→21:49)
[2020-10-02] MEDS: CLONIDINE 0.1MG TABLET PO PRN ×2 (06:12→23:29)
[2020-10-02 07:30] LABS: BASOPHILS % 0.8 % (0.0-2.0); HEMATOCRIT. 46.1 % (36.0-48.0); HEMOGLOBIN. 15.4 g/dL (12.0-16.0); LYMPHOCYTES % 14.7 % (20.0-50.0); MEAN CORPUSCULAR HEMOGLOBIN 29.4 pg (28.0-32.0); MEAN CORPUSCULAR VOLUME 88.3 fL (81.0-99.0); MEAN PLATELET VOLUME 9.8 fl (7.4-10.4); MONOCYTES % 1.3 % (2.0-8.0); NEUTROPHILS % 83.2 % (40.0-76.0); PLATELET 274 x1000/uL (130-400); RED BLOOD CELL COUNT 5.22 mill/uL (4.2-5.4); RED CELL DISTRIBUTION WIDTH 14.4 % (11.6-14.6)
[2020-10-02 07:57] LABS: CHLORIDE 96 mEq/L (98-107)
[2020-10-02 08:13] LABS: LDL CHOLESTEROL 94 mg/dL (5-100)
[2020-10-02 08:15] LABS: HDL CHOLESTEROL 47 mg/dL (40-59)
[2020-10-02 08:17] LABS: T4 FREE 1.17 ng/dL (0.76-1.46)
[2020-10-02] MEDS: AMLODIPINE 5MG TABLET PO SCH ×2 (09:19→21:38)
[2020-10-02] MEDS: FUROSEMIDE 40MG/4ML VIAL IV SCH (09:20)
[2020-10-02] MEDS: HYDRALAZINE HCL 100MG TABLET PO SCH ×3 (09:20→17:30)
[2020-10-02] MEDS: METRONIDAZOLE 500MG TABLET PO SCH ×2 (09:20→21:35)
[2020-10-02] MEDS: CLONIDINE 0.2MG TABLET PO SCH ×3 (09:20→17:29)
[2020-10-02] MEDS: ENOXAPARIN 30MG/0.3ML SYR SUBCUT SCH ×2 (09:21→21:36)
[2020-10-02] MEDS: INSULIN GLARGINE UD 100 UNITS/ML SYR SUBCUT SCH ×2 (09:44→23:51)
[2020-10-02] MEDS: IPRATROPIUM/ALBUTEROL 0.5-3(2.5)MG/3ML NEB HHN PRN ×2 (09:53→12:15)
[2020-10-02 10:49] LABS: *AMPHETAMINES SCREEN URINE NEGATIVE (NEGATIVE); *BARBITURATES SCREEN URINE NEGATIVE (NEGATIVE); *BENZODIAZEPINES SCREEN URINE NEGATIVE (NEGATIVE)
[2020-10-02 10:50] LABS: *COCAINE SCREEN URINE NEGATIVE (NEGATIVE); CANNABINOID URINE SCREEN NEGATIVE (NEGATIVE); METHADONE URINE SCREEN NEGATIVE (NEGATIVE); OPIATES URINE SCREEN PRESUMTIVE POSITIVE (NEGATIVE); PHENCYCLIDINE URINE SCREEN NEGATIVE (NEGATIVE)
[2020-10-02] MEDS ORDERED: IPRATROPIUM BROMIDE (0.02%) 0.5MG/2.5ML NEB HHN PRN (14:30)
[2020-10-02] MEDS: IPRATROPIUM BROMIDE (0.02%) 0.5MG/2.5ML NEB HHN SCH ×2 (16:11→20:14)
[2020-10-02 16:54] LABS: CREATINE KINASE 90 IU/L (26-192)
[2020-10-02 16:55] LABS: CREATINE KINASE MB FRACTION 2.1 ng/mL (0.5-3.6)
[2020-10-02] MEDS: GEMFIBROZIL 600MG TABLET PO SCH (17:29)
[2020-10-02] MEDS: ATORVASTATIN CALCIUM 40MG TABLET PO SCH ×2 (21:00→21:35)
[2020-10-02] MEDS: ZOLPIDEM TARTRATE 5MG TABLET PO PRN (21:52)
[2020-10-03] VITALS: BP 169/90
[2020-10-03 00:19] LABS: CREATINE KINASE 82 IU/L (26-192)
[2020-10-03] MEDS: IPRATROPIUM BROMIDE (0.02%) 0.5MG/2.5ML NEB HHN SCH ×6 (00:19→21:04)
[2020-10-03 00:20] LABS: CREATINE KINASE MB FRACTION 2.7 ng/mL (0.5-3.6)
[2020-10-03 04:00] VITALS: BP 160/82
[2020-10-03] MEDS: METHYLPREDNISOLONE SOD SUCC 125 MG/2 ML VIAL IV SCH ×4 (04:55→21:57)
[2020-10-03] MEDS: THEOPHYLLINE ANHYDROUS 80 MG/15 ML 120ML PO SCH ×3 (04:56→18:52)
[2020-10-03] MEDS: BLOOD SUGAR DIAGNOSTIC STRIP TEST SCH ×4 (05:41→21:28)
[2020-10-03] MEDS: INSULIN LISPRO 100 UNITS/ML SUBCUT SCH ×7 (06:07→21:34)
[2020-10-03] MEDS: HYDROCODONE/ACETAMINOPHEN 10/325MG TABLET PO PRN ×3 (06:36→22:52)
[2020-10-03 06:48] LABS: BASOPHILS % 0.5 % (0.0-2.0); HEMATOCRIT. 45.3 % (36.0-48.0); HEMOGLOBIN. 15.1 g/dL (12.0-16.0); LYMPHOCYTES % 9.6 % (20.0-50.0); MEAN CORPUSCULAR HEMOGLOBIN 29.2 pg (28.0-32.0); MEAN CORPUSCULAR VOLUME 87.3 fL (81.0-99.0); MEAN PLATELET VOLUME 10.2 fl (7.4-10.4); MONOCYTES % 5.3 % (2.0-8.0); NEUTROPHILS % 84.6 % (40.0-76.0); PLATELET 272 x1000/uL (130-400); RED BLOOD CELL COUNT 5.19 mill/uL (4.2-5.4); RED CELL DISTRIBUTION WIDTH 14.6 % (11.6-14.6)
[2020-10-03 07:30] LABS: CHLORIDE 94 mEq/L (98-107)
[2020-10-03] MEDS ORDERED: REGADENOSON 0.4 MG/5 ML IV SCH (07:30)
[2020-10-03 07:42] LABS: CREATINE KINASE 75 IU/L (26-192)
[2020-10-03 07:44] LABS: CREATINE KINASE MB FRACTION 2.5 ng/mL (0.5-3.6)
[2020-10-03 08:00] VITALS: BP 136/94
[2020-10-03] MEDS ORDERED: REGADENOSON 0.4 MG/5 ML IV ONE (09:10)
[2020-10-03] MEDS: GEMFIBROZIL 600MG TABLET PO SCH ×2 (10:31→16:40)
[2020-10-03] MEDS: ENOXAPARIN 30MG/0.3ML SYR SUBCUT SCH ×2 (10:31→21:19)
[2020-10-03] MEDS: METRONIDAZOLE 500MG TABLET PO SCH ×2 (10:32→21:13)
[2020-10-03] MEDS: HYDRALAZINE HCL 100MG TABLET PO SCH ×3 (10:32→16:32)
[2020-10-03] MEDS: CARVEDILOL 3.125 MG TABLET PO SCH ×2 (10:32→21:00)
[2020-10-03] MEDS: AMLODIPINE 5MG TABLET PO SCH ×2 (10:33→21:12)
[2020-10-03] MEDS: CLONIDINE 0.2MG TABLET PO SCH ×3 (10:33→16:33)
[2020-10-03] MEDS: FUROSEMIDE 40MG/4ML VIAL IV SCH (10:42)
[2020-10-03] MEDS: INSULIN GLARGINE UD 100 UNITS/ML SYR SUBCUT SCH ×2 (11:47→21:56)
[2020-10-03 12:00] VITALS: BP_SYST 151; BP_SYST 176; BP_DIAS 89; BP_DIAS 96
[2020-10-03 16:00] VITALS: BP_SYST 143; BP_SYST 154; BP_DIAS 81; BP_DIAS 94
[2020-10-03 20:00] VITALS: BP 137/84
[2020-10-03] MEDS: ATORVASTATIN CALCIUM 40MG TABLET PO SCH (21:12)
[2020-10-03] MEDS: ZOLPIDEM TARTRATE 5MG TABLET PO PRN (22:53)
[2020-10-04] VITALS: BP 141/90
[2020-10-04] MEDS: IPRATROPIUM BROMIDE (0.02%) 0.5MG/2.5ML NEB HHN SCH ×6 (01:19→20:32)
[2020-10-04] MEDS: THEOPHYLLINE ANHYDROUS 80 MG/15 ML 120ML PO SCH ×4 (01:38→17:04)
[2020-10-04 04:00] VITALS: BP 132/96
[2020-10-04] MEDS: METHYLPREDNISOLONE SOD SUCC 125 MG/2 ML VIAL IV SCH ×4 (04:10→21:41)
[2020-10-04] MEDS: INSULIN LISPRO 100 UNITS/ML SUBCUT SCH ×7 (06:06→21:48)
[2020-10-04] MEDS: BLOOD SUGAR DIAGNOSTIC STRIP TEST SCH ×4 (07:10→21:02)
[2020-10-04 07:18] LABS: BASOPHILS % 0.4 % (0.0-2.0); HEMATOCRIT. 46.3 % (36.0-48.0); HEMOGLOBIN. 15.6 g/dL (12.0-16.0); LYMPHOCYTES % 8.2 % (20.0-50.0); MEAN CORPUSCULAR HEMOGLOBIN 29.2 pg (28.0-32.0); MEAN CORPUSCULAR VOLUME 86.7 fL (81.0-99.0); MEAN PLATELET VOLUME 10.2 fl (7.4-10.4); NEUTROPHILS % 85.4 % (40.0-76.0); PLATELET 291 x1000/uL (130-400); RED BLOOD CELL COUNT 5.34 mill/uL (4.2-5.4); RED CELL DISTRIBUTION WIDTH 14.3 % (11.6-14.6)
[2020-10-04 07:22] LABS: CHLORIDE 92 mEq/L (98-107)
[2020-10-04] MEDS: HYDROCODONE/ACETAMINOPHEN 10/325MG TABLET PO PRN (07:28)
[2020-10-04 08:00] VITALS: BP 170/96
[2020-10-04] MEDS: AMLODIPINE 5MG TABLET PO SCH ×2 (08:36→21:00)
[2020-10-04] MEDS: HYDRALAZINE HCL 100MG TABLET PO SCH ×3 (08:36→16:55)
[2020-10-04] MEDS: GEMFIBROZIL 600MG TABLET PO SCH ×2 (08:37→16:56)
[2020-10-04] MEDS: FUROSEMIDE 40MG/4ML VIAL IV SCH (08:38)
[2020-10-04] MEDS: CARVEDILOL 3.125 MG TABLET PO SCH ×2 (08:38→21:01)
[2020-10-04] MEDS: ENOXAPARIN 30MG/0.3ML SYR SUBCUT SCH ×2 (08:40→20:58)
[2020-10-04] MEDS: METRONIDAZOLE 500MG TABLET PO SCH ×2 (09:00→20:59)
[2020-10-04] MEDS: CLONIDINE 0.2MG TABLET PO SCH ×3 (09:00→16:56)
[2020-10-04] MEDS: INSULIN GLARGINE UD 100 UNITS/ML SYR SUBCUT SCH ×2 (10:48→21:48)
[2020-10-04 12:00] VITALS: BP 188/105
[2020-10-04] MEDS: CLONIDINE 0.1MG TABLET PO NR ×2 (12:42→13:02)
[2020-10-04 16:00] VITALS: BP 145/94
[2020-10-04 20:00] VITALS: BP 138/77
[2020-10-04] MEDS: ATORVASTATIN CALCIUM 40MG TABLET PO SCH (20:59)
[2020-10-05] VITALS: BP 151/84
[2020-10-05] MEDS: IPRATROPIUM BROMIDE (0.02%) 0.5MG/2.5ML NEB HHN SCH ×6 (00:41→21:00)
[2020-10-05] MEDS: THEOPHYLLINE ANHYDROUS 80 MG/15 ML 120ML PO SCH ×4 (01:16→16:57)
[2020-10-05 04:00] VITALS: BP 151/97
[2020-10-05] MEDS: METHYLPREDNISOLONE SOD SUCC 125 MG/2 ML VIAL IV SCH ×2 (04:40→09:22)
[2020-10-05] MEDS: BLOOD SUGAR DIAGNOSTIC STRIP TEST SCH ×4 (06:32→21:00)
[2020-10-05] MEDS: INSULIN LISPRO 100 UNITS/ML SUBCUT SCH ×7 (06:34→21:01)
[2020-10-05 08:00] VITALS: BP 159/100
[2020-10-05] MEDS: METRONIDAZOLE 500MG TABLET PO SCH ×3 (09:00→20:49)
[2020-10-05] MEDS: PANTOPRAZOLE 40MG DR TABLET PO SCH (09:22)
[2020-10-05] MEDS: FUROSEMIDE 40MG/4ML VIAL IV SCH (09:22)
[2020-10-05] MEDS: AMLODIPINE 5MG TABLET PO SCH ×2 (09:23→20:49)
[2020-10-05] MEDS: CLONIDINE 0.1MG TABLET PO NR (09:23)
[2020-10-05] MEDS: CARVEDILOL 3.125 MG TABLET PO SCH ×2 (09:24→20:49)
[2020-10-05] MEDS: HYDRALAZINE HCL 100MG TABLET PO SCH ×3 (09:24→16:52)
[2020-10-05] MEDS: GEMFIBROZIL 600MG TABLET PO SCH ×2 (09:24→16:50)
[2020-10-05] MEDS: ENOXAPARIN 30MG/0.3ML SYR SUBCUT SCH ×2 (09:25→20:48)
[2020-10-05] MEDS: CLONIDINE 0.2MG TABLET PO SCH ×3 (09:43→16:49)
[2020-10-05 10:21] LABS: BASOPHILS % 0.2 % (0.0-2.0); HEMATOCRIT. 47.8 % (36.0-48.0); HEMOGLOBIN. 16.5 g/dL (12.0-16.0); LYMPHOCYTES % 9.9 % (20.0-50.0); MEAN CORPUSCULAR HEMOGLOBIN 29.6 pg (28.0-32.0); MEAN CORPUSCULAR VOLUME 85.5 fL (81.0-99.0); MEAN PLATELET VOLUME 9.9 fl (7.4-10.4); MONOCYTES % 7.8 % (2.0-8.0); NEUTROPHILS % 82.1 % (40.0-76.0); PLATELET 297 x1000/uL (130-400); RED BLOOD CELL COUNT 5.58 mill/uL (4.2-5.4); RED CELL DISTRIBUTION WIDTH 13.9 % (11.6-14.6)
[2020-10-05 10:33] LABS: CHLORIDE 94 mEq/L (98-107)
[2020-10-05 12:00] VITALS: BP 160/96
[2020-10-05] MEDS: METFORMIN HCL 500MG TABLET PO SCH ×2 (12:02→16:49)
[2020-10-05] MEDS: INSULIN GLARGINE UD 100 UNITS/ML SYR SUBCUT SCH ×2 (13:51→21:10)
[2020-10-05 16:00] VITALS: BP 148/84
[2020-10-05] MEDS: HYDROCODONE/ACETAMINOPHEN 10/325MG TABLET PO PRN (18:19)
[2020-10-05] MEDS: METHYLPREDNISOLONE SOD SUCC 40 MG/ML VIAL IV SCH ×2 (18:29→19:00)
[2020-10-05 20:00] VITALS: BP 142/82
[2020-10-05] MEDS: ATORVASTATIN CALCIUM 40MG TABLET PO SCH (20:49)
[2020-10-05] MEDS: ZOLPIDEM TARTRATE 5MG TABLET PO PRN (20:57)
[2020-10-05] MEDS ORDERED: INSULIN LISPRO 100 UNITS/ML SUBCUT ONE (22:00)
[2020-10-05] MEDS ORDERED: INSULIN LISPRO 100 UNITS/ML SUBCUT NR (22:15)
[2020-10-06] VITALS: BP 162/89
[2020-10-06] MEDS: METHYLPREDNISOLONE SOD SUCC 40 MG/ML VIAL IV SCH ×3 (00:15→12:17)
[2020-10-06] MEDS: CLONIDINE 0.1MG TABLET PO PRN (00:15)
[2020-10-06] MEDS: THEOPHYLLINE ANHYDROUS 80 MG/15 ML 120ML PO SCH ×4 (00:16→18:23)
[2020-10-06] MEDS: IPRATROPIUM BROMIDE (0.02%) 0.5MG/2.5ML NEB HHN SCH ×6 (00:50→21:41)
[2020-10-06 04:00] VITALS: BP 134/86
[2020-10-06 06:00] LABS: CHLORIDE 90 mEq/L (98-107)
[2020-10-06] MEDS ORDERED: INSULIN LISPRO 100 UNITS/ML SUBCUT NR (06:05)
[2020-10-06] MEDS: PANTOPRAZOLE 40MG DR TABLET PO SCH (06:19)
[2020-10-06] MEDS: BLOOD SUGAR DIAGNOSTIC STRIP TEST SCH ×4 (06:21→21:58)
[2020-10-06] MEDS: INSULIN LISPRO 100 UNITS/ML SUBCUT SCH ×7 (06:21→21:57)
[2020-10-06 06:51] LABS: BASOPHILS % 0.3 % (0.0-2.0); HEMATOCRIT. 47.2 % (36.0-48.0); HEMOGLOBIN. 16.2 g/dL (12.0-16.0); LYMPHOCYTES % 14.3 % (20.0-50.0); MEAN CORPUSCULAR HEMOGLOBIN 29.4 pg (28.0-32.0); MEAN CORPUSCULAR VOLUME 85.6 fL (81.0-99.0); MONOCYTES % 13.3 % (2.0-8.0); NEUTROPHILS % 72.1 % (40.0-76.0); PLATELET 262 x1000/uL (130-400); RED BLOOD CELL COUNT 5.52 mill/uL (4.2-5.4); RED CELL DISTRIBUTION WIDTH 13.7 % (11.6-14.6)
[2020-10-06 08:00] VITALS: BP 170/54
[2020-10-06] MEDS: GEMFIBROZIL 600MG TABLET PO SCH ×2 (08:08→17:50)
[2020-10-06] MEDS: CLONIDINE 0.2MG TABLET PO SCH ×3 (08:08→17:50)
[2020-10-06] MEDS: FUROSEMIDE 40MG/4ML VIAL IV SCH (08:08)
[2020-10-06] MEDS: METRONIDAZOLE 500MG TABLET PO SCH ×2 (08:09→21:00)
[2020-10-06] MEDS: METFORMIN HCL 500MG TABLET PO SCH ×2 (08:09→17:49)
[2020-10-06] MEDS: HYDRALAZINE HCL 100MG TABLET PO SCH ×3 (08:09→17:49)
[2020-10-06] MEDS: CARVEDILOL 3.125 MG TABLET PO SCH ×2 (08:09→21:53)
[2020-10-06] MEDS: AMLODIPINE 5MG TABLET PO SCH ×2 (08:09→22:00)
[2020-10-06] MEDS: ENOXAPARIN 30MG/0.3ML SYR SUBCUT SCH ×2 (08:11→21:46)
[2020-10-06] MEDS: INSULIN GLARGINE UD 100 UNITS/ML SYR SUBCUT SCH ×2 (09:12→21:57)
[2020-10-06 12:00] VITALS: BP 142/81
[2020-10-06] MEDS: CLONIDINE 0.1MG TABLET PO NR (13:03)
[2020-10-06] MEDS ORDERED: INSULIN GLARGINE UD 100 UNITS/ML SYR SUBCUT SCH (14:00)
[2020-10-06 16:00] VITALS: BP 111/73
[2020-10-06 20:00] VITALS: BP 117/74
[2020-10-06] MEDS: ATORVASTATIN CALCIUM 40MG TABLET PO SCH (21:46)
[2020-10-06] MEDS: ZOLPIDEM TARTRATE 5MG TABLET PO PRN (21:55)
[2020-10-07] VITALS (7 sets, daily range): BP systolic 123–157; BP diastolic 66–101
[2020-10-07] MEDS: THEOPHYLLINE ANHYDROUS 80 MG/15 ML 120ML PO SCH ×4 (00:13→17:47)
[2020-10-07] MEDS: IPRATROPIUM BROMIDE (0.02%) 0.5MG/2.5ML NEB HHN SCH ×6 (01:01→21:22)
[2020-10-07] MEDS: FAMOTIDINE 20MG TABLET PO SCH ×2 (06:29→17:34)
[2020-10-07] MEDS: INSULIN LISPRO 100 UNITS/ML SUBCUT SCH ×7 (06:31→21:47)
[2020-10-07] MEDS: BLOOD SUGAR DIAGNOSTIC STRIP TEST SCH ×4 (06:32→21:48)
[2020-10-07 06:40] LABS: BASOPHILS % 0.4 % (0.0-2.0); EOSINOPHILS % 0.4 % (0.0-5.0); HEMATOCRIT. 46.8 % (36.0-48.0); LYMPHOCYTES % 30.2 % (20.0-50.0); MEAN CORPUSCULAR VOLUME 84.9 fL (81.0-99.0); MONOCYTES % 12.7 % (2.0-8.0); NEUTROPHILS % 56.3 % (40.0-76.0); PLATELET 257 x1000/uL (130-400); RED BLOOD CELL COUNT 5.52 mill/uL (4.2-5.4); RED CELL DISTRIBUTION WIDTH 13.6 % (11.6-14.6)
[2020-10-07 06:44] LABS: CHLORIDE 92 mEq/L (98-107)
[2020-10-07] MEDS ORDERED: MAGNESIUM/ALUMINUM HYDROXIDE/SIMETHICONE 30ML UDC PO PRN (08:00)
[2020-10-07] MEDS: ENOXAPARIN 30MG/0.3ML SYR SUBCUT SCH ×2 (08:17→21:52)
[2020-10-07] MEDS: METFORMIN HCL 500MG TABLET PO SCH ×2 (08:18→17:42)
[2020-10-07] MEDS: CLONIDINE 0.2MG TABLET PO SCH ×3 (08:21→17:33)
[2020-10-07] MEDS: PREDNISONE 20MG TABLET PO SCH (08:21)
[2020-10-07] MEDS: GEMFIBROZIL 600MG TABLET PO SCH ×2 (08:22→17:40)
[2020-10-07] MEDS: HYDRALAZINE HCL 100MG TABLET PO SCH ×3 (08:22→17:00)
[2020-10-07] MEDS: CARVEDILOL 3.125 MG TABLET PO SCH ×2 (08:23→21:58)
[2020-10-07] MEDS: AMLODIPINE 5MG TABLET PO SCH ×2 (08:24→21:52)
[2020-10-07] MEDS: FUROSEMIDE 40MG/4ML VIAL IV SCH (08:25)
[2020-10-07] MEDS ORDERED: POTASSIUM CHLORIDE 20MEQ TABLET SR PO NR (09:30)
[2020-10-07] MEDS: HYDROCHLOROTHIAZIDE 25MG TABLET PO SCH (09:47)
[2020-10-07] MEDS: NITROGLYCERIN 0.4MG TABLET SL SL PRN ×2 (09:55→10:07)
[2020-10-07] MEDS ORDERED: MORPHINE SULFATE 2 MG/ML CPJ (NOT FOR IM USE) IV PRN (10:15)
[2020-10-07] MEDS: INSULIN GLARGINE UD 100 UNITS/ML SYR SUBCUT SCH ×2 (10:18→21:51)
[2020-10-07] MEDS: CLONIDINE 0.1MG TABLET PO NR (12:52)
[2020-10-07] MEDS ORDERED: ATROV INH (13:23)
[2020-10-07] MEDS ORDERED: HYDR25TA PO (16:12)
[2020-10-07] MEDS ORDERED: GEMF600T PO (16:12)
[2020-10-07] MEDS ORDERED: LANTUSUD SUBCUT (16:12)
[2020-10-07] MEDS ORDERED: FAMO20TA8 PO (16:12)
[2020-10-07] MEDS ORDERED: INSLIS SUBCUT (16:12)
[2020-10-07] MEDS ORDERED: METF500T PO (16:12)
[2020-10-07] MEDS ORDERED: P20 MT (16:12)
[2020-10-07] MEDS ORDERED: COR3 PO (16:12)
[2020-10-07] MEDS: ATORVASTATIN CALCIUM 40MG TABLET PO SCH (21:51)
[2020-10-07] MEDS ORDERED: HYDROCODONE/ACETAMINOPHEN 5/325MG TABLET PO PRN (23:00)
[2020-10-08] VITALS: BP 137/87
[2020-10-08] MEDS: IPRATROPIUM BROMIDE (0.02%) 0.5MG/2.5ML NEB HHN SCH ×4 (00:32→13:24)
[2020-10-08] MEDS: THEOPHYLLINE ANHYDROUS 80 MG/15 ML 120ML PO SCH ×3 (01:45→13:38)
[2020-10-08 04:00] VITALS: BP 151/72
[2020-10-08] MEDS: FAMOTIDINE 20MG TABLET PO SCH (06:26)
[2020-10-08] MEDS: INSULIN LISPRO 100 UNITS/ML SUBCUT SCH ×4 (06:28→13:42)
[2020-10-08] MEDS: BLOOD SUGAR DIAGNOSTIC STRIP TEST SCH ×2 (07:54→11:37)
[2020-10-08 08:00] VITALS: BP 145/107
[2020-10-08] MEDS: HYDRALAZINE HCL 100MG TABLET PO SCH ×2 (08:38→13:38)
[2020-10-08] MEDS: CLONIDINE 0.2MG TABLET PO SCH ×2 (08:39→13:39)
[2020-10-08] MEDS: PREDNISONE 20MG TABLET PO SCH (08:39)
[2020-10-08] MEDS: GEMFIBROZIL 600MG TABLET PO SCH (08:39)
[2020-10-08] MEDS: ENOXAPARIN 30MG/0.3ML SYR SUBCUT SCH (08:39)
[2020-10-08] MEDS: HYDROCHLOROTHIAZIDE 25MG TABLET PO SCH (08:40)
[2020-10-08] MEDS: METFORMIN HCL 500MG TABLET PO SCH (08:40)
[2020-10-08] MEDS: CARVEDILOL 3.125 MG TABLET PO SCH (08:40)
[2020-10-08] MEDS: AMLODIPINE 5MG TABLET PO SCH (08:40)
[2020-10-08] MEDS: FUROSEMIDE 40MG/4ML VIAL IV SCH (08:41)
[2020-10-08] MEDS ORDERED: FISH OIL/OMEGA-3 FATTY ACIDS 1000MG CAPSULE PO SCH (09:15)
[2020-10-08] MEDS: INSULIN GLARGINE UD 100 UNITS/ML SYR SUBCUT SCH (10:08)
[2020-10-08 10:47] VITALS: BP 140/98
[2020-10-08 12:00] VITALS: BP 135/83
[2020-10-08] MEDS ORDERED: POTASSIUM CHLORIDE 20MEQ TABLET SR PO SCH (12:15)
[2020-10-08] MEDS: CLONIDINE 0.1MG TABLET PO NR (12:42)
== END 2020-10-08 15:45 | disposition home or self-care (01) | DRG 205 ==
LOC: ER 09:24 → 8WST 13:22 → EDBEDREQ 13:25 → ENRESERV 13:48
PROVIDERS: ADMIT Internal Medicine; ATTEND Internal Medicine
DX: M94.0 Chondrocostal junction syndrome [Tietze] (principal); J96.01 Acute respiratory failure with hypoxia; J44.1 Chronic obstructive pulmonary disease with (acute) exacerbation; E87.1 Hypo-osmolality and hyponatremia; Z68.41 Body mass index [BMI] 40.0-44.9, adult; I50.32 Chronic diastolic (congestive) heart failure; E11.65 Type 2 diabetes mellitus with hyperglycemia; E86.1 Hypovolemia; I11.0 Hypertensive heart disease with heart failure; E78.1 Pure hyperglyceridemia; G43.909 Migraine, unspecified, not intractable, without status migrainosus; E66.01 Morbid (severe) obesity due to excess calories; M25.561 Pain in right knee; E78.5 Hyperlipidemia, unspecified; Z79.51 Long term (current) use of inhaled steroids; Z99.81 Dependence on supplemental oxygen; Z72.0 Tobacco use; Z79.4 Long term (current) use of insulin; Z79.899 Other long term (current) drug therapy; Z91.14 Patient's other noncompliance with medication regimen; R07.9 Chest pain, unspecified
CPT/HCPCS: 36415; 71045; 73562; 78452; 80048; 80053; 80061; 80305; 82550; 82553; 82947; 82962; 83036; 83605; 83735; 83880; 84100; 84439; 84443; 84484; 85025; 85379; 93005; 93017; 93306; 93970; 94640; 99291; A9500; J1650; J1815; J1940; J2785; J2920; J2930; J7512

== ENCOUNTER 2020-12-25 08:21 | Inpatient (IN) | payer MEDICARE, MEDICAID ==
[~2020-12-25] VITALS: Ht 170.2 cm; Wt 126.6 kg
[~2020-12-25 08:21] MED LIST changes: +ATROV INH; +CLON0.2T PO; +COR3 PO; +FAMO20TA8 PO; +GEMF600T PO; -HYDR-4134 MT; +HYDR100T26 PO; +HYDR25TA PO; +METF500T PO; +P20 MT; -P50 MT; +TIZA4CAP6 MT
[2020-12-25] MEDS ORDERED: IPRATROPIUM BROMIDE (0.02%) 0.5MG/2.5ML NEB HHN STA (09:16)
[2020-12-25] MEDS ORDERED: ALBUTEROL (0.083%) 2.5MG/3ML NEB HHN STA ×2 (09:16→12:39)
[2020-12-25] MEDS ORDERED: METHYLPREDNISOLONE SOD SUCC 125 MG/2 ML VIAL IV STA (09:16)
[2020-12-25 10:13] LABS: BASOPHILS % 1.1 % (0.0-2.0); EOSINOPHILS % 1.3 % (0.0-5.0); HEMATOCRIT. 38.2 % (36.0-48.0); HEMOGLOBIN. 12.7 g/dL (12.0-16.0); LYMPHOCYTES % 32.4 % (20.0-50.0); MEAN CORPUSCULAR HEMOGLOBIN 28.2 pg (28.0-32.0); MEAN CORPUSCULAR VOLUME 85.1 fL (81.0-99.0); MEAN PLATELET VOLUME 8.8 fl (7.4-10.4); MONOCYTES % 9.5 % (2.0-8.0); NEUTROPHILS % 55.7 % (40.0-76.0); PLATELET 316 x1000/uL (130-400); RED BLOOD CELL COUNT 4.49 mill/uL (4.2-5.4)
[2020-12-25 10:20] LABS: CHLORIDE 111 mEq/L (98-107)
[2020-12-25] MEDS ORDERED: HYDRALAZINE 20MG/ML VIAL IV ONE (11:30)
[2020-12-25] MEDS ORDERED: ONDANSETRON HCL 4MG/2ML INJ IV PRN (13:00)
[2020-12-25] MEDS ORDERED: ACETAMINOPHEN 325MG TABLET PO PRN (13:00)
[2020-12-25] MEDS ORDERED: DIPHENHYDRAMINE 50MG/ML VIAL IV PRN (13:00)
[2020-12-25] MEDS: METHYLPREDNISOLONE SOD SUCC 125 MG/2 ML VIAL IV SCH ×2 (13:38→20:41)
[2020-12-25] MEDS: ENOXAPARIN 30MG/0.3ML SYR SUBCUT SCH ×2 (13:38→20:41)
[2020-12-25] MEDS: CLONIDINE 0.1MG TABLET PO PRN ×2 (14:55→18:24)
[2020-12-25 17:40] VITALS: BP 195/95
[2020-12-25] MEDS: HYDROCODONE/ACETAMINOPHEN 5/325MG TABLET PO PRN ×2 (18:02→23:54)
[2020-12-25] MEDS: INSULIN LISPRO 100 UNITS/ML SUBCUT SCH (18:26)
[2020-12-25 20:00] VITALS: BP 213/92
[2020-12-25] MEDS: IPRATROPIUM/ALBUTEROL 0.5-3(2.5)MG/3ML NEB HHN PRN (20:15)
[2020-12-25] MEDS: BLOOD SUGAR DIAGNOSTIC STRIP TEST SCH (20:41)
[2020-12-25] MEDS: HYDRALAZINE 20MG/ML VIAL IV PRN (20:42)
[2020-12-25] MEDS ORDERED: BLOOD SUGAR DIAGNOSTIC STRIP TEST SCH (21:00)
[2020-12-25] MEDS: INSULIN GLARGINE UD 100 UNITS/ML SYR SUBCUT SCH (21:16)
[2020-12-25] MEDS: HYDRALAZINE HCL 100MG TABLET PO SCH (23:52)
[2020-12-25 23:57] VITALS: BP 189/97
[2020-12-26] MEDS: METHYLPREDNISOLONE SOD SUCC 125 MG/2 ML VIAL IV SCH ×4 (02:12→20:50)
[2020-12-26 02:29] LABS: CREATINE KINASE 366 IU/L (26-192)
[2020-12-26 04:00] VITALS: BP 190/111
[2020-12-26] MEDS: BLOOD SUGAR DIAGNOSTIC STRIP TEST SCH ×3 (05:57→16:40)
[2020-12-26] MEDS: HYDRALAZINE HCL 100MG TABLET PO SCH ×3 (06:03→20:53)
[2020-12-26] MEDS: INSULIN LISPRO 100 UNITS/ML SUBCUT SCH ×3 (06:30→18:09)
[2020-12-26 08:00] VITALS: BP 211/114
[2020-12-26] MEDS: CLONIDINE 0.1MG TABLET PO PRN (08:35)
[2020-12-26 08:38] LABS: HEMATOCRIT. 39.4 % (36.0-48.0); HEMOGLOBIN. 12.8 g/dL (12.0-16.0); MEAN CORPUSCULAR HEMOGLOBIN 27.9 pg (28.0-32.0); MEAN CORPUSCULAR VOLUME 85.9 fL (81.0-99.0); MEAN PLATELET VOLUME 8.7 fl (7.4-10.4); PLATELET 342 x1000/uL (130-400); RED BLOOD CELL COUNT 4.59 mill/uL (4.2-5.4); RED CELL DISTRIBUTION WIDTH 15.7 % (11.6-14.6)
[2020-12-26] MEDS: ENOXAPARIN 30MG/0.3ML SYR SUBCUT SCH ×2 (08:59→20:49)
[2020-12-26 09:18] LABS: CHLORIDE 106 mEq/L (98-107)
[2020-12-26 09:31] LABS: LDL CHOLESTEROL 104 mg/dL (5-100)
[2020-12-26 09:34] LABS: HDL CHOLESTEROL 74 mg/dL (40-59)
[2020-12-26] MEDS: INSULIN GLARGINE UD 100 UNITS/ML SYR SUBCUT SCH ×2 (10:31→21:52)
[2020-12-26 12:00] VITALS: BP 205/100
[2020-12-26] MEDS: HYDROCODONE/ACETAMINOPHEN 5/325MG TABLET PO PRN (13:05)
[2020-12-26 14:58] LABS: PLATELET ESTIMATE NORMAL
[2020-12-26 16:00] VITALS: BP 172/79
[2020-12-26] MEDS ORDERED: FURO-151 PO (16:58)
[2020-12-26 18:31] LABS: CREATINE KINASE MB FRACTION 3.6 ng/mL (0.5-3.6)
[2020-12-26 20:00] VITALS: BP 203/97
[2020-12-26] MEDS: HYDRALAZINE 20MG/ML VIAL IV PRN (20:48)
[2020-12-27] VITALS (8 sets, daily range): BP systolic 128–227; BP diastolic 74–127
[2020-12-27] MEDS: METHYLPREDNISOLONE SOD SUCC 125 MG/2 ML VIAL IV SCH ×4 (03:10→21:16)
[2020-12-27] MEDS: HYDRALAZINE 20MG/ML VIAL IV PRN (04:29)
[2020-12-27] MEDS: IPRATROPIUM/ALBUTEROL 0.5-3(2.5)MG/3ML NEB HHN PRN ×3 (05:07→14:20)
[2020-12-27] MEDS: HYDRALAZINE HCL 100MG TABLET PO SCH ×3 (06:10→21:18)
[2020-12-27] MEDS: HYDROCODONE/ACETAMINOPHEN 5/325MG TABLET PO PRN (06:10)
[2020-12-27] MEDS: BLOOD SUGAR DIAGNOSTIC STRIP TEST SCH ×3 (06:10→18:03)
[2020-12-27] MEDS: INSULIN LISPRO 100 UNITS/ML SUBCUT SCH ×3 (06:11→18:02)
[2020-12-27 08:43] LABS: HEMATOCRIT. 39.4 % (36.0-48.0); HEMOGLOBIN. 12.7 g/dL (12.0-16.0); MEAN CORPUSCULAR VOLUME 86.8 fL (81.0-99.0); MEAN PLATELET VOLUME 8.2 fl (7.4-10.4); PLATELET 382 x1000/uL (130-400); RED BLOOD CELL COUNT 4.54 mill/uL (4.2-5.4); RED CELL DISTRIBUTION WIDTH 15.8 % (11.6-14.6)
[2020-12-27] MEDS: ENOXAPARIN 30MG/0.3ML SYR SUBCUT SCH ×2 (08:43→21:17)
[2020-12-27] MEDS: CLONIDINE 0.1MG TABLET PO PRN ×2 (08:44→18:42)
[2020-12-27 09:01] LABS: CHLORIDE 108 mEq/L (98-107)
[2020-12-27] MEDS ORDERED: HYDROCODONE/APAP 7.5/325MG 1 TAB TABLET PO PRN (12:30)
[2020-12-27] MEDS: FUROSEMIDE 40MG TABLET PO SCH ×2 (12:50→17:15)
[2020-12-27] MEDS: INSULIN GLARGINE UD 100 UNITS/ML SYR SUBCUT SCH ×2 (12:51→21:27)
[2020-12-27] MEDS: HYDROCODONE/ACETAMINOPHEN 10/325MG TABLET PO PRN ×2 (16:03→21:17)
[2020-12-27 20:52] LABS: PLATELET ESTIMATE NORMAL
[2020-12-27] MEDS: GABAPENTIN 300MG CAPSULE PO SCH (21:17)
[2020-12-28] VITALS: BP 199/103
[2020-12-28] MEDS: HYDRALAZINE 20MG/ML VIAL IV PRN (00:45)
[2020-12-28] MEDS: METHYLPREDNISOLONE SOD SUCC 125 MG/2 ML VIAL IV SCH ×3 (02:41→13:31)
[2020-12-28 04:00] VITALS: BP 191/86
[2020-12-28 06:09] LABS: BASOPHILS % 0.2 % (0.0-2.0); HEMATOCRIT. 37.3 % (36.0-48.0); HEMOGLOBIN. 12.4 g/dL (12.0-16.0); LYMPHOCYTES % 8.9 % (20.0-50.0); MEAN CORPUSCULAR HEMOGLOBIN 28.8 pg (28.0-32.0); MEAN CORPUSCULAR VOLUME 86.1 fL (81.0-99.0); MEAN PLATELET VOLUME 8.8 fl (7.4-10.4); MONOCYTES % 3.4 % (2.0-8.0); NEUTROPHILS % 87.5 % (40.0-76.0); PLATELET 329 x1000/uL (130-400); RED BLOOD CELL COUNT 4.33 mill/uL (4.2-5.4); RED CELL DISTRIBUTION WIDTH 15.2 % (11.6-14.6)
[2020-12-28 06:20] LABS: CHLORIDE 104 mEq/L (98-107)
[2020-12-28 06:27] LABS: PHOSPHORUS 2.8 mg/dL (2.5-4.9)
[2020-12-28] MEDS: BLOOD SUGAR DIAGNOSTIC STRIP TEST SCH (06:29)
[2020-12-28] MEDS: HYDRALAZINE HCL 100MG TABLET PO SCH ×2 (06:29→13:33)
[2020-12-28] MEDS: FUROSEMIDE 40MG TABLET PO SCH (06:29)
[2020-12-28] MEDS: GABAPENTIN 300MG CAPSULE PO SCH ×2 (06:29→13:30)
[2020-12-28] MEDS: INSULIN LISPRO 100 UNITS/ML SUBCUT SCH ×2 (06:30→13:38)
[2020-12-28 08:00] VITALS: BP 193/104
[2020-12-28] MEDS: ENOXAPARIN 30MG/0.3ML SYR SUBCUT SCH (08:59)
[2020-12-28] MEDS: INSULIN GLARGINE UD 100 UNITS/ML SYR SUBCUT SCH (09:01)
[2020-12-28] MEDS: CLONIDINE 0.1MG TABLET PO PRN (09:10)
[2020-12-28] MEDS: HYDROCODONE/ACETAMINOPHEN 10/325MG TABLET PO PRN (09:11)
[2020-12-28] MEDS ORDERED: P20 MT (12:34)
[2020-12-28] MEDS: IPRATROPIUM/ALBUTEROL 0.5-3(2.5)MG/3ML NEB HHN PRN ×2 (12:41→16:45)
[2020-12-28 15:20] VITALS: BP 157/71
== END 2020-12-28 17:35 | disposition home health service (06) | DRG 291 ==
LOC: ER 08:21 → 6WST 12:23 → ENRESERV 14:27 → 7EST 22:45 → 6WST 12-27 03:30
PROVIDERS: ADMIT Internal Medicine; ATTEND Internal Medicine
DX: I11.0 Hypertensive heart disease with heart failure (principal); J96.00 Acute respiratory failure, unspecified whether with hypoxia or hypercapnia; J44.1 Chronic obstructive pulmonary disease with (acute) exacerbation; I16.1 Hypertensive emergency; I50.33 Acute on chronic diastolic (congestive) heart failure; E11.9 Type 2 diabetes mellitus without complications; Z96.659 Presence of unspecified artificial knee joint; F17.210 Nicotine dependence, cigarettes, uncomplicated; Z20.822 Contact with and (suspected) exposure to COVID-19; Z79.4 Long term (current) use of insulin; Z98.891 History of uterine scar from previous surgery; Z99.81 Dependence on supplemental oxygen; Z79.899 Other long term (current) drug therapy; Z71.6 Tobacco abuse counseling
CPT/HCPCS: 36415; 71045; 80048; 80053; 80061; 82550; 82553; 82962; 83036; 83735; 83880; 84100; 84439; 84443; 84484; 85025; 85379; 93005; 93970; 94640; 94644; 99285; C1893; J0360; J1650; J1815; J2930; U0003

== ENCOUNTER 2021-04-12 11:45 | Inpatient (IN) | payer MEDICARE, MEDICAID ==
[~2021-04-12] VITALS: Ht 180.3 cm; Wt 137.0 kg
[~2021-04-12 11:45] MED LIST changes: +FURO-151 PO
[2021-04-12] MEDS ORDERED: LIDOCAINE HCL/PF 1% 2ML VIAL ONE (11:53)
[2021-04-12 12:59] LABS: BASOPHILS % 1.2 % (0.0-2.0); EOSINOPHILS % 0.9 % (0.0-5.0); HEMATOCRIT. 41.8 % (36.0-48.0); HEMOGLOBIN. 14.1 g/dL (12.0-16.0); LYMPHOCYTES % 23.6 % (20.0-50.0); MEAN CORPUSCULAR HEMOGLOBIN 28.6 pg (28.0-32.0); MEAN CORPUSCULAR VOLUME 84.9 fL (81.0-99.0); MEAN PLATELET VOLUME 8.2 fl (7.4-10.4); MONOCYTES % 8.6 % (2.0-8.0); NEUTROPHILS % 65.7 % (40.0-76.0); PLATELET 317 x1000/uL (130-400); RED BLOOD CELL COUNT 4.92 mill/uL (4.2-5.4); RED CELL DISTRIBUTION WIDTH 15.7 % (11.6-14.6)
[2021-04-12 13:01] LABS: CHLORIDE 109 mEq/L (98-107)
[2021-04-12 13:05] LABS: ETHANOL BLOOD < 10 mg/dL
[2021-04-12 13:06] LABS: *AMPHETAMINES SCREEN URINE NEGATIVE (NEGATIVE); *BARBITURATES SCREEN URINE NEGATIVE (NEGATIVE); *BENZODIAZEPINES SCREEN URINE NEGATIVE (NEGATIVE); *COCAINE SCREEN URINE NEGATIVE (NEGATIVE); METHADONE URINE SCREEN NEGATIVE (NEGATIVE); OPIATES URINE SCREEN PRESUMTIVE POSITIVE (NEGATIVE)
[2021-04-12 13:07] LABS: CANNABINOID URINE SCREEN PRESUMTIVE POSITIVE (NEGATIVE); PHENCYCLIDINE URINE SCREEN NEGATIVE (NEGATIVE)
[2021-04-12] MEDS ORDERED: ACETAMINOPHEN 325MG TABLET PO ONE (13:45)
[2021-04-12] MEDS ORDERED: MORPHINE SULFATE 2 MG/ML CPJ (NOT FOR IM USE) IV ONE (13:45)
[2021-04-12] MEDS ORDERED: SODIUM CHLORIDE 0.9% 250 ML IV ONE (13:45)
[2021-04-12] MEDS ORDERED: IPRATROPIUM BROMIDE (0.02%) 0.5MG/2.5ML NEB HHN STA ×2 (15:16→15:33)
[2021-04-12] MEDS ORDERED: ALBUTEROL (0.083%) 2.5MG/3ML NEB HHN STA ×2 (15:16→15:33)
[2021-04-12] MEDS ORDERED: PREDNISONE 20MG TABLET PO STA (15:33)
[2021-04-12] MEDS ORDERED: AZITHROMYCIN 500 MG in DEXT 5% WATER 250 ML IV SCH (18:45)
[2021-04-12] MEDS ORDERED: HYDRALAZINE HCL 100MG TABLET PO ONE (19:00)
[2021-04-12] MEDS ORDERED: CLONIDINE 0.3MG TABLET PO ONE (19:00)
[2021-04-12] MEDS ORDERED: LOSARTAN POTASSIUM 50 MG TABLET PO ONE (19:00)
[2021-04-12] MEDS ORDERED: ZOLPIDEM TARTRATE 5MG TABLET PO PRN (20:45)
[2021-04-12] MEDS ORDERED: ONDANSETRON HCL 4MG/2ML INJ IV PRN (20:45)
[2021-04-12] MEDS ORDERED: GUAIFENESIN 200MG/10ML SUGAR FREE UDC PO PRN (20:45)
[2021-04-12] MEDS ORDERED: DEXTROSE 50% WATER 50ML SYRINGE IV PRN (20:45)
[2021-04-12] MEDS ORDERED: MAGNESIUM/ALUMINUM HYDROXIDE/SIMETHICONE 30ML UDC PO PRN (20:45)
[2021-04-12] MEDS ORDERED: ACETAMINOPHEN 325MG TABLET PO PRN (20:45)
[2021-04-12] MEDS ORDERED: DOCUSATE SODIUM 100MG CAPSULE PO PRN (20:45)
[2021-04-12] MEDS ORDERED: IPRATROPIUM/ALBUTEROL 0.5-3(2.5)MG/3ML NEB NEB PRN (20:45)
[2021-04-12] MEDS ORDERED: LEVOFLOXACIN 500MG PREMIX 100 ML IV SCH (21:00)
[2021-04-12] MEDS: BLOOD SUGAR DIAGNOSTIC STRIP TEST SCH (21:00)
[2021-04-12] MEDS: METHYLPREDNISOLONE SOD SUCC 125 MG/2 ML VIAL IV SCH (22:16)
[2021-04-12] MEDS: LISINOPRIL 20MG TABLET PO SCH (22:16)
[2021-04-12] MEDS: ASCORBIC ACID 500 MG TABLET PO SCH (22:17)
[2021-04-12] MEDS: NITROGLYCERIN OINT 1GM/INCH UDPKT TD SCH (22:17)
[2021-04-12] MEDS: GUAIFENESIN/DM 600MG/30MG ER TAB 12HR PO SCH (22:17)
[2021-04-12] MEDS: ENOXAPARIN 30MG/0.3ML SYR SUBCUT SCH (22:18)
[2021-04-12] MEDS: FAMOTIDINE 20MG TABLET PO SCH (22:19)
[2021-04-12] MEDS: ATORVASTATIN CALCIUM 40MG TABLET PO SCH (23:16)
[2021-04-12] MEDS: KETOROLAC 15MG/ML VIAL IV PRN (23:16)
[2021-04-12 23:17] LABS: CREATINE KINASE 118 IU/L (26-192)
[2021-04-12] MEDS: INSULIN LISPRO 100 UNITS/ML SUBCUT SCH (23:17)
[2021-04-12 23:18] LABS: CREATINE KINASE MB FRACTION 2.2 ng/mL (0.5-3.6)
[2021-04-12 23:44] LABS: FOLIC ACID (FOLATE) SERUM >20 ng/mL ng/mL (>5.38)
[2021-04-12 23:56] LABS: VITAMIN B12 SERUM 608 pg/mL (211-911)
[2021-04-12] MEDS: INSULIN GLARGINE UD 100 UNITS/ML SYR SUBCUT SCH (23:59)
[2021-04-13] VITALS (8 sets, daily range): BP systolic 116–191; BP diastolic 52–97
[2021-04-13] MEDS: IPRATROPIUM/ALBUTEROL 0.5-3(2.5)MG/3ML NEB HHN SCH ×5 (05:05→21:52)
[2021-04-13] MEDS: CARVEDILOL 3.125 MG TABLET PO SCH ×2 (05:32→17:06)
[2021-04-13] MEDS: METHYLPREDNISOLONE SOD SUCC 125 MG/2 ML VIAL IV SCH ×3 (05:32→21:02)
[2021-04-13] MEDS: NITROGLYCERIN OINT 1GM/INCH UDPKT TD SCH ×3 (05:33→22:23)
[2021-04-13] MEDS: KETOROLAC 15MG/ML VIAL IV PRN ×2 (05:34→13:03)
[2021-04-13] MEDS: CLONIDINE 0.1MG TABLET PO PRN ×3 (05:34→22:24)
[2021-04-13 06:46] LABS: BASOPHILS % 0.3 % (0.0-2.0); HEMATOCRIT. 41.9 % (36.0-48.0); HEMOGLOBIN. 13.8 g/dL (12.0-16.0); LYMPHOCYTES % 12.5 % (20.0-50.0); MEAN CORPUSCULAR HEMOGLOBIN 28.1 pg (28.0-32.0); MEAN CORPUSCULAR VOLUME 85.3 fL (81.0-99.0); MEAN PLATELET VOLUME 8.4 fl (7.4-10.4); MONOCYTES % 1.5 % (2.0-8.0); NEUTROPHILS % 85.7 % (40.0-76.0); PLATELET 347 x1000/uL (130-400); RED BLOOD CELL COUNT 4.91 mill/uL (4.2-5.4); RED CELL DISTRIBUTION WIDTH 15.8 % (11.6-14.6)
[2021-04-13 06:47] LABS: CHLORIDE 106 mEq/L (98-107)
[2021-04-13 06:54] LABS: PHOSPHORUS 3.6 mg/dL (2.5-4.9)
[2021-04-13 06:56] LABS: CREATINE KINASE 106 IU/L (26-192); CREATINE KINASE MB FRACTION 2.3 ng/mL (0.5-3.6)
[2021-04-13] MEDS: BLOOD SUGAR DIAGNOSTIC STRIP TEST SCH ×4 (06:57→20:38)
[2021-04-13] MEDS: INSULIN LISPRO 100 UNITS/ML SUBCUT SCH ×4 (07:04→22:25)
[2021-04-13] MEDS: ENOXAPARIN 30MG/0.3ML SYR SUBCUT SCH (10:00)
[2021-04-13] MEDS: FAMOTIDINE 20MG TABLET PO SCH ×2 (10:01→22:24)
[2021-04-13] MEDS: LISINOPRIL 20MG TABLET PO SCH ×2 (10:01→22:24)
[2021-04-13] MEDS: AMLODIPINE 10MG TABLET PO SCH (10:01)
[2021-04-13] MEDS: GUAIFENESIN/DM 600MG/30MG ER TAB 12HR PO SCH ×2 (10:01→22:23)
[2021-04-13] MEDS: ASPIRIN 325MG EC TABLET PO SCH (10:01)
[2021-04-13] MEDS: ASCORBIC ACID 500 MG TABLET PO SCH ×2 (10:01→22:24)
[2021-04-13] MEDS: CHOLECALCIFEROL (D3) 1000 UNIT TABLET PO SCH (10:02)
[2021-04-13] MEDS: ZINC SULFATE 220 MG ( 50 ) CAPSULE PO SCH (10:02)
[2021-04-13] MEDS: TRAMADOL 50MG TABLET PO PRN ×2 (10:02→17:05)
[2021-04-13] MEDS: INSULIN GLARGINE UD 100 UNITS/ML SYR SUBCUT SCH ×2 (12:12→22:33)
[2021-04-13] MEDS: NITROGLYCERIN 0.4MG TABLET SL SL PRN ×2 (17:05→17:14)
[2021-04-13] MEDS: ACETAMINOPHEN 325MG TABLET PO PRN (17:07)
[2021-04-13] MEDS: LEVOFLOXACIN 500MG PREMIX 100 ML IV SCH (18:19)
[2021-04-13] MEDS: MINOXIDIL 2.5MG TABLET PO SCH (18:20)
[2021-04-13] MEDS: ENOXAPARIN 40MG/0.4ML SYR SUBCUT SCH (22:23)
[2021-04-13] MEDS: ATORVASTATIN CALCIUM 40MG TABLET PO SCH (22:24)
[2021-04-14] VITALS: BP 152/73
[2021-04-14] MEDS: IPRATROPIUM/ALBUTEROL 0.5-3(2.5)MG/3ML NEB HHN SCH ×6 (00:50→21:25)
[2021-04-14] MEDS: ACETAMINOPHEN 325MG TABLET PO PRN ×2 (02:20→10:17)
[2021-04-14 04:00] VITALS: BP 130/75
[2021-04-14] MEDS: METHYLPREDNISOLONE SOD SUCC 125 MG/2 ML VIAL IV SCH ×3 (05:23→22:36)
[2021-04-14] MEDS: BLOOD SUGAR DIAGNOSTIC STRIP TEST SCH ×4 (05:23→20:09)
[2021-04-14] MEDS: NITROGLYCERIN OINT 1GM/INCH UDPKT TD SCH ×3 (05:38→21:12)
[2021-04-14] MEDS: CARVEDILOL 3.125 MG TABLET PO SCH ×2 (05:39→17:56)
[2021-04-14] MEDS: INSULIN LISPRO 100 UNITS/ML SUBCUT SCH ×4 (05:44→21:14)
[2021-04-14 08:00] VITALS: BP 181/96
[2021-04-14] MEDS: ASPIRIN 325MG EC TABLET PO SCH (10:00)
[2021-04-14] MEDS: ENOXAPARIN 40MG/0.4ML SYR SUBCUT SCH ×2 (10:00→21:12)
[2021-04-14] MEDS: LEVOFLOXACIN 500MG PREMIX 100 ML IV SCH (10:00)
[2021-04-14] MEDS: GUAIFENESIN/DM 600MG/30MG ER TAB 12HR PO SCH ×2 (10:00→21:13)
[2021-04-14] MEDS: FAMOTIDINE 20MG TABLET PO SCH ×2 (10:01→21:13)
[2021-04-14] MEDS: ZINC SULFATE 220 MG ( 50 ) CAPSULE PO SCH (10:01)
[2021-04-14] MEDS: AMLODIPINE 10MG TABLET PO SCH (10:01)
[2021-04-14] MEDS: ASCORBIC ACID 500 MG TABLET PO SCH ×2 (10:01→21:12)
[2021-04-14] MEDS: LISINOPRIL 20MG TABLET PO SCH ×2 (10:01→21:12)
[2021-04-14] MEDS: CHOLECALCIFEROL (D3) 1000 UNIT TABLET PO SCH (10:01)
[2021-04-14] MEDS: MINOXIDIL 2.5MG TABLET PO SCH (10:02)
[2021-04-14] MEDS: INSULIN GLARGINE UD 100 UNITS/ML SYR SUBCUT SCH ×2 (10:10→21:14)
[2021-04-14 12:00] VITALS: BP 155/68
[2021-04-14] MEDS: FUROSEMIDE 40MG TABLET PO SCH (14:11)
[2021-04-14] MEDS: HYDRALAZINE HCL 100MG TABLET PO SCH ×2 (14:12→21:12)
[2021-04-14 16:00] VITALS: BP 187/85
[2021-04-14] MEDS: CLONIDINE 0.1MG TABLET PO PRN (19:10)
[2021-04-14 20:00] VITALS: BP 190/97
[2021-04-14] MEDS: ATORVASTATIN CALCIUM 40MG TABLET PO SCH (21:13)
[2021-04-14] MEDS: NITROGLYCERIN 0.4MG TABLET SL SL PRN (21:18)
[2021-04-15 00:01] VITALS: BP 143/68
[2021-04-15] MEDS: IPRATROPIUM/ALBUTEROL 0.5-3(2.5)MG/3ML NEB HHN SCH ×4 (02:02→12:28)
[2021-04-15 04:00] VITALS: BP 127/50
[2021-04-15] MEDS: BLOOD SUGAR DIAGNOSTIC STRIP TEST SCH ×2 (05:16→12:39)
[2021-04-15] MEDS: HYDRALAZINE HCL 100MG TABLET PO SCH ×2 (05:27→14:19)
[2021-04-15] MEDS: NITROGLYCERIN OINT 1GM/INCH UDPKT TD SCH (05:28)
[2021-04-15] MEDS: CARVEDILOL 3.125 MG TABLET PO SCH (05:28)
[2021-04-15] MEDS: ACETAMINOPHEN 325MG TABLET PO PRN ×2 (05:39→11:24)
[2021-04-15] MEDS: INSULIN LISPRO 100 UNITS/ML SUBCUT SCH ×2 (05:40→12:51)
[2021-04-15] MEDS: METHYLPREDNISOLONE SOD SUCC 125 MG/2 ML VIAL IV SCH ×2 (05:42→14:00)
[2021-04-15 08:20] VITALS: BP 164/78
[2021-04-15] MEDS: ENOXAPARIN 40MG/0.4ML SYR SUBCUT SCH ×2 (09:00→10:32)
[2021-04-15] MEDS: FAMOTIDINE 20MG TABLET PO SCH (10:32)
[2021-04-15] MEDS: INSULIN GLARGINE UD 100 UNITS/ML SYR SUBCUT SCH (10:32)
[2021-04-15] MEDS: ASPIRIN 325MG EC TABLET PO SCH (10:33)
[2021-04-15] MEDS: MINOXIDIL 2.5MG TABLET PO SCH (10:33)
[2021-04-15] MEDS: GUAIFENESIN/DM 600MG/30MG ER TAB 12HR PO SCH (10:33)
[2021-04-15] MEDS: ZINC SULFATE 220 MG ( 50 ) CAPSULE PO SCH (10:33)
[2021-04-15] MEDS: FUROSEMIDE 40MG TABLET PO SCH (10:33)
[2021-04-15] MEDS: LISINOPRIL 20MG TABLET PO SCH (10:33)
[2021-04-15] MEDS: AMLODIPINE 10MG TABLET PO SCH (10:34)
[2021-04-15] MEDS: ASCORBIC ACID 500 MG TABLET PO SCH (10:34)
[2021-04-15] MEDS: CHOLECALCIFEROL (D3) 1000 UNIT TABLET PO SCH (10:34)
[2021-04-15] MEDS: LEVOFLOXACIN 500MG PREMIX 100 ML IV SCH (11:23)
[2021-04-15 11:48] VITALS: BP 190/77
[2021-04-15 13:56] VITALS: BP 155/77
== END 2021-04-15 14:30 | disposition home or self-care (01) | DRG 871 ==
LOC: ER 11:55 → 8WST 18:32 → SUPCPDRO 20:32 → ENRESERV 21:37
PROVIDERS: ADMIT Internal Medicine; ATTEND Internal Medicine
DX: A41.9 Sepsis, unspecified organism (principal); J96.00 Acute respiratory failure, unspecified whether with hypoxia or hypercapnia; I16.1 Hypertensive emergency; J44.1 Chronic obstructive pulmonary disease with (acute) exacerbation; Z68.41 Body mass index [BMI] 40.0-44.9, adult; E11.65 Type 2 diabetes mellitus with hyperglycemia; E66.9 Obesity, unspecified; I50.9 Heart failure, unspecified; I11.0 Hypertensive heart disease with heart failure; E78.00 Pure hypercholesterolemia, unspecified; Z96.659 Presence of unspecified artificial knee joint; K57.90 Diverticulosis of intestine, part unspecified, without perforation or abscess without bleeding; K76.0 Fatty (change of) liver, not elsewhere classified; Z79.4 Long term (current) use of insulin; Z79.899 Other long term (current) drug therapy; Z99.81 Dependence on supplemental oxygen; Z98.891 History of uterine scar from previous surgery
CPT/HCPCS: 36415; 71045; 74176; 80053; 80061; 80305; 80320; 82550; 82553; 82607; 82746; 82962; 83036; 83540; 83550; 83605; 83735; 83880; 84100; 84484; 85025; 93005; 93306; 93970; 94640; 99285; C1893; J0456; J1650; J1815; J1885; J1956; J2270; J2930; J3490; J7040; J7050; J7060; J7512; G0480

== ENCOUNTER 2021-05-16 10:36 | Inpatient (IN) | payer MEDICARE, MEDICAID ==
[~2021-05-16] VITALS: Ht 170.2 cm; Wt 135.6 kg
[2021-05-16] MEDS ORDERED: METHYLPREDNISOLONE SOD SUCC 125 MG/2 ML VIAL IV STA (11:03)
[2021-05-16] MEDS ORDERED: IPRATROPIUM BROMIDE (0.02%) 0.5MG/2.5ML NEB HHN STA (11:03)
[2021-05-16] MEDS ORDERED: LEVOFLOXACIN 750MG PREMIX 150 ML IV STA (11:03)
[2021-05-16] MEDS ORDERED: ALBUTEROL (0.083%) 2.5MG/3ML NEB HHN STA (11:03)
[2021-05-16 11:16] LABS: EOSINOPHILS % 1.5 % (0.0-5.0); HEMATOCRIT. 38.6 % (36.0-48.0); HEMOGLOBIN. 13.3 g/dL (12.0-16.0); LYMPHOCYTES % 27.6 % (20.0-50.0); MEAN CORPUSCULAR VOLUME 84.3 fL (81.0-99.0); MEAN PLATELET VOLUME 7.9 fl (7.4-10.4); MONOCYTES % 11.4 % (2.0-8.0); NEUTROPHILS % 58.5 % (40.0-76.0); PLATELET 280 x1000/uL (130-400); RED BLOOD CELL COUNT 4.58 mill/uL (4.2-5.4); RED CELL DISTRIBUTION WIDTH 16.2 % (11.6-14.6)
[2021-05-16 11:24] LABS: CHLORIDE 108 mEq/L (98-107)
[2021-05-16] MEDS ORDERED: ALBUTEROL (0.5%) 2.5MG/0.5ML NEB HHN ONE (13:00)
[2021-05-16] MEDS ORDERED: ALBUTEROL (0.083%) 2.5MG/3ML NEB ONE (13:00)
[2021-05-16] MEDS ORDERED: IPRATROPIUM BROMIDE (0.02%) 0.5MG/2.5ML NEB ONE (13:01)
[2021-05-16] MEDS: BLOOD SUGAR DIAGNOSTIC STRIP TEST SCH ×2 (17:40→21:51)
[2021-05-16] MEDS ORDERED: DEXTROSE 50% WATER 50ML SYRINGE IV PRN (17:45)
[2021-05-16] MEDS ORDERED: ENOXAPARIN 40MG/0.4ML SYR SUBCUT SCH (17:45)
[2021-05-16] MEDS ORDERED: ONDANSETRON HCL 4MG/2ML INJ IV PRN (17:45)
[2021-05-16] MEDS ORDERED: MAGNESIUM/ALUMINUM HYDROXIDE/SIMETHICONE 30ML UDC PO PRN (17:45)
[2021-05-16] MEDS ORDERED: NA PHOS,M-B/NA PHOS,DI-BA ENEMA 118ML PR PRN (17:45)
[2021-05-16] MEDS ORDERED: CLONIDINE 0.1MG TABLET PO PRN (17:45)
[2021-05-16 18:00] VITALS: BP 155/84
[2021-05-16] MEDS ORDERED: METHYLPREDNISOLONE SOD SUCC 125 MG/2 ML VIAL IV SCH (18:00)
[2021-05-16] MEDS: HYDROCODONE/ACETAMINOPHEN 10/325MG TABLET PO PRN (18:12)
[2021-05-16] MEDS: FUROSEMIDE 40MG/4ML VIAL IV SCH (18:12)
[2021-05-16] MEDS: ENOXAPARIN 30MG/0.3ML SYR SUBCUT SCH (18:13)
[2021-05-16] MEDS: INSULIN LISPRO 100 UNITS/ML SUBCUT SCH ×2 (18:19→20:36)
[2021-05-16 20:00] VITALS: BP 198/91
[2021-05-16] MEDS: METHYLPREDNISOLONE SOD SUCC 40 MG/ML VIAL IV SCH (20:35)
[2021-05-16] MEDS: AMLODIPINE 5MG TABLET PO SCH (20:37)
[2021-05-16] MEDS: CARVEDILOL 3.125 MG TABLET PO SCH (20:37)
[2021-05-16] MEDS: INSULIN GLARGINE UD 100 UNITS/ML SYR SUBCUT SCH (22:03)
[2021-05-17] MEDS: HYDROCODONE/ACETAMINOPHEN 10/325MG TABLET PO PRN ×3 (00:09→18:34)
[2021-05-17 01:15] LABS: C REACTIVE PROTEIN QUANT 8.2 mg/L (0.0-3.0)
[2021-05-17 01:19] LABS: CREATINE KINASE 310 IU/L (26-192)
[2021-05-17 01:21] LABS: CREATINE KINASE MB FRACTION 3.3 ng/mL (0.5-3.6)
[2021-05-17] MEDS: METHYLPREDNISOLONE SOD SUCC 40 MG/ML VIAL IV SCH ×3 (03:30→21:00)
[2021-05-17] MEDS: NITROGLYCERIN 0.4MG TABLET SL SL PRN ×2 (03:30→03:35)
[2021-05-17 04:00] VITALS: BP 151/80
[2021-05-17] MEDS: ENOXAPARIN 30MG/0.3ML SYR SUBCUT SCH ×2 (06:03→17:47)
[2021-05-17] MEDS: BLOOD SUGAR DIAGNOSTIC STRIP TEST SCH ×4 (06:31→21:10)
[2021-05-17 07:01] LABS: BASOPHILS % 0.3 % (0.0-2.0); HEMATOCRIT. 39.1 % (36.0-48.0); HEMOGLOBIN. 13.3 g/dL (12.0-16.0); LYMPHOCYTES % 9.6 % (20.0-50.0); MEAN CORPUSCULAR HEMOGLOBIN 28.9 pg (28.0-32.0); MEAN CORPUSCULAR VOLUME 84.9 fL (81.0-99.0); MEAN PLATELET VOLUME 8.4 fl (7.4-10.4); MONOCYTES % 4.3 % (2.0-8.0); NEUTROPHILS % 85.8 % (40.0-76.0); PLATELET 344 x1000/uL (130-400); RED BLOOD CELL COUNT 4.61 mill/uL (4.2-5.4); RED CELL DISTRIBUTION WIDTH 16.4 % (11.6-14.6)
[2021-05-17 07:32] LABS: CHLORIDE 105 mEq/L (98-107)
[2021-05-17 07:45] LABS: LDL CHOLESTEROL 113 mg/dL (5-100)
[2021-05-17 07:46] LABS: CREATINE KINASE 290 IU/L (26-192); HDL CHOLESTEROL 61 mg/dL (40-59)
[2021-05-17 07:49] LABS: CREATINE KINASE MB FRACTION 2.8 ng/mL (0.5-3.6)
[2021-05-17 08:00] VITALS: BP 174/96
[2021-05-17] MEDS: AMLODIPINE 5MG TABLET PO SCH ×2 (08:40→21:02)
[2021-05-17] MEDS: CARVEDILOL 3.125 MG TABLET PO SCH ×2 (08:40→21:02)
[2021-05-17] MEDS: FUROSEMIDE 40MG/4ML VIAL IV SCH (08:40)
[2021-05-17] MEDS: INSULIN LISPRO 100 UNITS/ML SUBCUT SCH ×4 (08:48→21:47)
[2021-05-17] MEDS: INSULIN GLARGINE UD 100 UNITS/ML SYR SUBCUT SCH ×2 (10:37→21:48)
[2021-05-17] MEDS: ALBUTEROL (0.083%) 2.5MG/3ML NEB HHN SCH ×3 (11:27→21:22)
[2021-05-17 12:00] VITALS: BP 181/79
[2021-05-17] MEDS: HYDRALAZINE HCL 100MG TABLET PO SCH ×2 (12:46→16:42)
[2021-05-17] MEDS ORDERED: LOSA50TA41 PO (14:05)
[2021-05-17 16:00] VITALS: BP 213/93
[2021-05-17] MEDS: LOSARTAN POTASSIUM 50 MG TABLET PO SCH (16:41)
[2021-05-17 18:56] VITALS: BP 174/88
[2021-05-17 20:00] VITALS: BP 155/85
[2021-05-17] MEDS: CLONIDINE 0.3MG TABLET PO SCH (21:02)
[2021-05-17] MEDS ORDERED: LORAZEPAM 2MG/ML CPJ IV NR (22:00)
[2021-05-18] VITALS: BP 140/83
[2021-05-18] MEDS: ALBUTEROL (0.083%) 2.5MG/3ML NEB HHN SCH ×5 (00:54→21:12)
[2021-05-18 04:00] VITALS: BP 159/96
[2021-05-18] MEDS: METHYLPREDNISOLONE SOD SUCC 40 MG/ML VIAL IV SCH ×3 (04:39→21:59)
[2021-05-18] MEDS: ENOXAPARIN 30MG/0.3ML SYR SUBCUT SCH (06:23)
[2021-05-18] MEDS: BLOOD SUGAR DIAGNOSTIC STRIP TEST SCH ×4 (06:23→21:00)
[2021-05-18] MEDS: CLONIDINE 0.3MG TABLET PO SCH ×3 (09:05→17:34)
[2021-05-18] MEDS: HYDROCODONE/ACETAMINOPHEN 10/325MG TABLET PO PRN ×2 (09:05→15:45)
[2021-05-18] MEDS: HYDRALAZINE HCL 100MG TABLET PO SCH ×3 (09:05→17:34)
[2021-05-18] MEDS: CARVEDILOL 3.125 MG TABLET PO SCH ×2 (09:06→21:59)
[2021-05-18] MEDS: LOSARTAN POTASSIUM 50 MG TABLET PO SCH ×2 (09:06→17:34)
[2021-05-18] MEDS: AMLODIPINE 5MG TABLET PO SCH ×2 (09:06→22:00)
[2021-05-18] MEDS: FUROSEMIDE 40MG/4ML VIAL IV SCH (09:06)
[2021-05-18] MEDS: INSULIN LISPRO 100 UNITS/ML SUBCUT SCH ×4 (09:08→22:01)
[2021-05-18] MEDS: INSULIN GLARGINE UD 100 UNITS/ML SYR SUBCUT SCH ×2 (09:09→22:03)
[2021-05-18 12:13] VITALS: BP 121/71
[2021-05-18] MEDS ORDERED: INSULIN LISPRO 100 UNITS/ML SUBCUT NR (16:00)
[2021-05-18 16:06] VITALS: BP 138/86
[2021-05-18 16:30] LABS: EOSINOPHILS % 0.7 % (0.0-5.0); HEMATOCRIT. 40.8 % (36.0-48.0); HEMOGLOBIN. 13.9 g/dL (12.0-16.0); LYMPHOCYTES % 7.8 % (20.0-50.0); MEAN CORPUSCULAR HEMOGLOBIN 29.1 pg (28.0-32.0); MEAN CORPUSCULAR VOLUME 85.2 fL (81.0-99.0); MEAN PLATELET VOLUME 8.9 fl (7.4-10.4); MONOCYTES % 4.6 % (2.0-8.0); NEUTROPHILS % 86.9 % (40.0-76.0); PLATELET 314 x1000/uL (130-400); RED BLOOD CELL COUNT 4.78 mill/uL (4.2-5.4); RED CELL DISTRIBUTION WIDTH 16.2 % (11.6-14.6)
[2021-05-18 16:38] LABS: CHLORIDE 99 mEq/L (98-107)
[2021-05-18] MEDS: ENOXAPARIN 40MG/0.4ML SYR SUBCUT SCH (17:35)
[2021-05-18] MEDS ORDERED: LORAZEPAM 2MG/ML CPJ IV PRN (19:45)
[2021-05-18 20:00] VITALS: BP 133/69
[2021-05-18] MEDS: BUDESONIDE 0.5MG/2ML NEB HHN SCH (21:13)
[2021-05-18 23:37] VITALS: BP 153/77
[2021-05-19] MEDS: ALBUTEROL (0.083%) 2.5MG/3ML NEB HHN SCH ×4 (02:52→20:51)
[2021-05-19 04:00] VITALS: BP 129/72
[2021-05-19] MEDS: ENOXAPARIN 40MG/0.4ML SYR SUBCUT SCH ×2 (06:31→17:54)
[2021-05-19] MEDS: BLOOD SUGAR DIAGNOSTIC STRIP TEST SCH ×4 (06:32→21:11)
[2021-05-19] MEDS: BUDESONIDE 0.5MG/2ML NEB HHN SCH ×2 (08:02→20:50)
[2021-05-19 08:08] VITALS: BP 119/77
[2021-05-19] MEDS: METHYLPREDNISOLONE SOD SUCC 40 MG/ML VIAL IV SCH ×2 (08:50→17:53)
[2021-05-19] MEDS: CLONIDINE 0.3MG TABLET PO SCH ×3 (08:50→17:53)
[2021-05-19] MEDS: AMLODIPINE 5MG TABLET PO SCH ×2 (08:51→21:10)
[2021-05-19] MEDS: HYDROCODONE/ACETAMINOPHEN 10/325MG TABLET PO PRN ×2 (08:51→17:53)
[2021-05-19] MEDS: FUROSEMIDE 40MG/4ML VIAL IV SCH (08:51)
[2021-05-19] MEDS: LOSARTAN POTASSIUM 50 MG TABLET PO SCH ×2 (08:51→17:53)
[2021-05-19] MEDS: HYDRALAZINE HCL 100MG TABLET PO SCH ×3 (08:51→17:53)
[2021-05-19] MEDS: CARVEDILOL 3.125 MG TABLET PO SCH ×2 (08:52→21:10)
[2021-05-19] MEDS: INSULIN LISPRO 100 UNITS/ML SUBCUT SCH ×4 (08:54→21:11)
[2021-05-19] MEDS: INSULIN GLARGINE UD 100 UNITS/ML SYR SUBCUT SCH ×2 (10:18→21:12)
[2021-05-19 11:56] VITALS: BP 130/75
[2021-05-19] MEDS ORDERED: BUDE6HFA INH ×2 (12:55)
[2021-05-19 16:37] VITALS: BP 120/69
[2021-05-19] MEDS ORDERED: METHYLPREDNISOLONE SOD SUCC 40 MG/ML VIAL IV SCH (18:00)
[2021-05-19 20:00] VITALS: BP 145/72
[2021-05-19] MEDS ORDERED: LORAZEPAM 2MG/ML CPJ IV PRN (21:30)
[2021-05-20] VITALS: BP 126/57
[2021-05-20] MEDS: ALBUTEROL (0.083%) 2.5MG/3ML NEB HHN SCH ×2 (02:12→09:14)
[2021-05-20 05:00] VITALS: BP 137/74
[2021-05-20] MEDS: ENOXAPARIN 40MG/0.4ML SYR SUBCUT SCH (06:06)
[2021-05-20] MEDS: BLOOD SUGAR DIAGNOSTIC STRIP TEST SCH ×2 (06:06→11:56)
[2021-05-20 08:15] VITALS: BP 167/108
[2021-05-20] MEDS: INSULIN LISPRO 100 UNITS/ML SUBCUT SCH ×2 (08:32→13:09)
[2021-05-20] MEDS: FUROSEMIDE 40MG/4ML VIAL IV SCH (08:36)
[2021-05-20] MEDS: METHYLPREDNISOLONE SOD SUCC 40 MG/ML VIAL IV SCH ×2 (08:37→17:04)
[2021-05-20] MEDS: LOSARTAN POTASSIUM 50 MG TABLET PO SCH ×2 (08:37→17:05)
[2021-05-20] MEDS: AMLODIPINE 5MG TABLET PO SCH (08:37)
[2021-05-20] MEDS: CLONIDINE 0.3MG TABLET PO SCH ×3 (08:37→17:05)
[2021-05-20] MEDS: CARVEDILOL 3.125 MG TABLET PO SCH (08:38)
[2021-05-20] MEDS: HYDRALAZINE HCL 100MG TABLET PO SCH ×3 (08:38→17:05)
[2021-05-20] MEDS: HYDROCODONE/ACETAMINOPHEN 10/325MG TABLET PO PRN (09:12)
[2021-05-20] MEDS: BUDESONIDE 0.5MG/2ML NEB HHN SCH (09:14)
[2021-05-20] MEDS ORDERED: NITR0.4T49 SL (10:08)
[2021-05-20] MEDS ORDERED: LOSA50TA3 PO (10:08)
[2021-05-20] MEDS ORDERED: AMLO5TAB88 PO (10:08)
[2021-05-20] MEDS ORDERED: COR3 PO (10:08)
[2021-05-20] MEDS ORDERED: CLON0.3T PO (10:08)
[2021-05-20] MEDS ORDERED: HYDR100T26 PO (10:08)
[2021-05-20] MEDS ORDERED: LANTUSUD SUBCUT (10:08)
[2021-05-20] MEDS ORDERED: FURO-151 MT (10:10)
[2021-05-20] MEDS ORDERED: PRED1TAB MT (10:10)
[2021-05-20] MEDS ORDERED: LORA-249 MT (10:10)
[2021-05-20] MEDS: INSULIN GLARGINE UD 100 UNITS/ML SYR SUBCUT SCH (10:56)
[2021-05-20 12:15] VITALS: BP 124/68
[2021-05-20 13:43] VITALS: BP 124/68
[2021-05-20 16:02] VITALS: BP 153/63
== END 2021-05-20 17:50 | disposition home or self-care (01) | DRG 193 ==
LOC: ER 10:36 → ENRESERV 13:54 → CANRESERV 13:54 → ENRESERV 15:35 → 7WST 16:59 → 6WST 05-17 00:37
PROVIDERS: ADMIT Family Medicine; ATTEND Family Medicine
DX: J18.9 Pneumonia, unspecified organism (principal); J96.21 Acute and chronic respiratory failure with hypoxia; J44.1 Chronic obstructive pulmonary disease with (acute) exacerbation; I50.32 Chronic diastolic (congestive) heart failure; Z68.42 Body mass index [BMI] 45.0-49.9, adult; J44.0 Chronic obstructive pulmonary disease with (acute) lower respiratory infection; Z79.899 Other long term (current) drug therapy; E66.01 Morbid (severe) obesity due to excess calories; Z20.822 Contact with and (suspected) exposure to COVID-19; G43.909 Migraine, unspecified, not intractable, without status migrainosus; F17.200 Nicotine dependence, unspecified, uncomplicated; E11.65 Type 2 diabetes mellitus with hyperglycemia; E78.5 Hyperlipidemia, unspecified; Z96.659 Presence of unspecified artificial knee joint; G89.29 Other chronic pain; I11.0 Hypertensive heart disease with heart failure; Z98.891 History of uterine scar from previous surgery; Z99.81 Dependence on supplemental oxygen
CPT/HCPCS: 36415; 71045; 78306; 80053; 80061; 82550; 82553; 82728; 82962; 83036; 83880; 84484; 85025; 85379; 86140; 93005; 94640; 99285; A9503; J1650; J1815; J1940; J1956; J2060; J2920; J2930; J7626; U0003; U0005

== ENCOUNTER 2021-09-30 14:36 | Inpatient (IN) | payer MEDICARE, MEDICAID ==
[~2021-09-30] VITALS: Ht 173.7 cm; Wt 141.5 kg
[~2021-09-30 14:36] MED LIST changes: -ALBU18HF2 IH; -AMLO5TAB88 PO; -ATROV INH; -BUDE90AE INH; -CLON0.2T PO; -COR3 PO; -FURO-151 MT; -FURO-151 PO; -GEMF600T PO; -HYDR-4009 PO; -HYDR100T26 PO; -HYDR25TA PO; -INSLIS SUBCUT; -IPRA3AMP9 NEB; -LANTUSUD SUBCUT; -LIP40 PO; -METF500T PO; -P20 MT; -TDUR2 MT; -THEOL PO; -TIOT18CA3 IH; -TIZA4CAP6 MT
[2021-09-30] MEDS ORDERED: INSULIN (14:40)
[2021-09-30] MEDS ORDERED: METOPROLOL (14:40)
[2021-09-30] MEDS ORDERED: ALBUTEROL (14:40)
[2021-09-30] MEDS ORDERED: AMLODIPINE (14:40)
[2021-09-30] MEDS ORDERED: ASPIRIN 81MG TABLET PO ONE (15:15)
[2021-09-30] MEDS ORDERED: NITROGLYCERIN OINT 1GM/INCH UDPKT TD ONE (15:15)
[2021-09-30] MEDS ORDERED: FUROSEMIDE 40MG/4ML VIAL IV ONE (15:15)
[2021-09-30 15:19] LABS: BASOPHILS % 1.1 % (0.0-2.0); EOSINOPHILS % 0.8 % (0.0-5.0); HEMATOCRIT. 40.4 % (36.0-48.0); HEMOGLOBIN. 13.4 g/dL (12.0-16.0); LYMPHOCYTES % 33.3 % (20.0-50.0); MEAN CORPUSCULAR HEMOGLOBIN 28.1 pg (28.0-32.0); MEAN CORPUSCULAR VOLUME 84.7 fL (81.0-99.0); MEAN PLATELET VOLUME 7.8 fl (7.4-10.4); MONOCYTES % 12.9 % (2.0-8.0); NEUTROPHILS % 51.9 % (40.0-76.0); PLATELET 418 x1000/uL (130-400); RED BLOOD CELL COUNT 4.77 mill/uL (4.2-5.4); RED CELL DISTRIBUTION WIDTH 16.4 % (11.6-14.6)
[2021-09-30 15:26] LABS: CHLORIDE 107 mEq/L (98-107)
[2021-09-30] MEDS ORDERED: ALBUTEROL (0.083%) 2.5MG/3ML NEB HHN STA (16:32)
[2021-09-30] MEDS ORDERED: CEFTRIAXONE 1 G PREMIX 50 ML IV ONE (17:15)
[2021-09-30] MEDS ORDERED: AZITHROMYCIN 500MG/250ML 250 ML IV ONE (17:15)
[2021-09-30] MEDS ORDERED: ONDANSETRON HCL 4MG/2ML INJ IV STA (19:07)
[2021-09-30] MEDS ORDERED: MORPHINE SULFATE 4 MG/ML CPJ (NOT FOR IM USE) IV STA (19:07)
[2021-09-30] MEDS ORDERED: MAGNESIUM/ALUMINUM HYDROXIDE/SIMETHICONE 30ML UDC PO PRN (19:30)
[2021-09-30] MEDS ORDERED: ONDANSETRON HCL 4MG/2ML INJ IV PRN (19:30)
[2021-09-30] MEDS ORDERED: DEXTROSE 50% WATER 50ML SYRINGE IV PRN (19:30)
[2021-09-30] MEDS ORDERED: ACETAMINOPHEN 325MG TABLET PO PRN (19:30)
[2021-09-30] MEDS ORDERED: IPRATROPIUM/ALBUTEROL 0.5-3(2.5)MG/3ML NEB NEB PRN (19:30)
[2021-09-30] MEDS ORDERED: GUAIFENESIN 200MG/10ML SUGAR FREE UDC PO PRN (19:30)
[2021-09-30] MEDS ORDERED: KETOROLAC 15MG/ML VIAL IV PRN (19:30)
[2021-09-30] MEDS ORDERED: DOCUSATE SODIUM 100MG CAPSULE PO PRN (19:30)
[2021-09-30] MEDS ORDERED: NITROGLYCERIN 0.4MG TABLET SL SL PRN (19:30)
[2021-09-30] MEDS ORDERED: ENOXAPARIN 40MG/0.4ML SYR SUBCUT SCH (20:00)
[2021-09-30] MEDS: INSULIN LISPRO 100 UNITS/ML SUBCUT SCH (21:00)
[2021-09-30] MEDS: BLOOD SUGAR DIAGNOSTIC STRIP TEST SCH (21:00)
[2021-09-30] MEDS: INSULIN GLARGINE UD 100 UNITS/ML SYR SUBCUT SCH (22:00)
[2021-09-30 22:01] LABS: CLARITY URINE TURBID (CLEAR); COLOR URINE YELLOW (YELLOW); KETONES URINE NEGATIVE (NEGATIVE); LEUKOCYTE ESTERASE URINE 1+ (NEGATIVE); NITRITE URINE NEGATIVE (NEGATIVE); OCCULT BLOOD URINE NEGATIVE (NEGATIVE); PROTEIN URINE NEGATIVE (NEGATIVE); SPECIFIC GRAVITY URINE 1.031 (1.005-1.030); UROBILINOGEN URINE 0.2 E.U./dL (0.2-1.0)
[2021-09-30 22:23] LABS: *AMPHETAMINES SCREEN URINE NEGATIVE (NEGATIVE); *BARBITURATES SCREEN URINE NEGATIVE (NEGATIVE); *BENZODIAZEPINES SCREEN URINE NEGATIVE (NEGATIVE); *COCAINE SCREEN URINE NEGATIVE (NEGATIVE); CANNABINOID URINE SCREEN PRESUMTIVE POSITIVE (NEGATIVE); METHADONE URINE SCREEN NEGATIVE (NEGATIVE); OPIATES URINE SCREEN PRESUMTIVE POSITIVE (NEGATIVE); PHENCYCLIDINE URINE SCREEN NEGATIVE (NEGATIVE)
[2021-09-30] MEDS: FAMOTIDINE 20MG TABLET PO SCH (22:33)
[2021-09-30] MEDS: METHYLPREDNISOLONE SOD SUCC 125 MG/2 ML VIAL IV SCH (22:34)
[2021-09-30] MEDS: ASCORBIC ACID 500 MG TABLET PO SCH (22:34)
[2021-09-30 23:48] LABS: CREATINE KINASE 291 IU/L (26-192)
[2021-09-30 23:49] LABS: CREATINE KINASE MB FRACTION 2.4 ng/mL (0.5-3.6)
[2021-10-01] MEDS: IPRATROPIUM/ALBUTEROL 0.5-3(2.5)MG/3ML NEB HHN SCH ×6 (00:12→20:19)
[2021-10-01 02:00] VITALS: BP 104/68
[2021-10-01] MEDS ORDERED: IPRA4AER INH (03:33)
[2021-10-01] MEDS ORDERED: GABA-532 PO (03:33)
[2021-10-01] MEDS ORDERED: TIZA4CAP6 PO (03:33)
[2021-10-01] MEDS ORDERED: FURO40TA5 PO (03:33)
[2021-10-01] MEDS ORDERED: HYDR100T26 MT (03:33)
[2021-10-01] MEDS ORDERED: NITR0.4T49 SL (03:33)
[2021-10-01] MEDS ORDERED: UMEC1DIS IH (03:33)
[2021-10-01] MEDS ORDERED: LOSA50TA41 PO (03:33)
[2021-10-01] MEDS ORDERED: DAPA10TA PO (03:33)
[2021-10-01] MEDS ORDERED: CLON0.3T PO ×2 (03:33)
[2021-10-01] MEDS ORDERED: HYDR-4009 PO (03:33)
[2021-10-01] MEDS ORDERED: CARV3.1242 PO (03:33)
[2021-10-01] MEDS ORDERED: INSU100I28 SQ (03:33)
[2021-10-01] MEDS ORDERED: LIDO30CR46 TP (03:33)
[2021-10-01] MEDS ORDERED: INSLIS SUBCUT (03:33)
[2021-10-01] MEDS ORDERED: TRAZ-251 PO (03:33)
[2021-10-01] MEDS ORDERED: AMLO10TA80 MT (03:33)
[2021-10-01] MEDS: CLONIDINE 0.1MG TABLET PO PRN ×2 (05:07→11:59)
[2021-10-01] MEDS: DILTIAZEM HCL 60MG TABLET PO SCH ×5 (05:08→23:33)
[2021-10-01] MEDS: METHYLPREDNISOLONE SOD SUCC 125 MG/2 ML VIAL IV SCH ×2 (06:00→13:06)
[2021-10-01 06:38] LABS: BASOPHILS % 0.4 % (0.0-2.0); HEMOGLOBIN. 13.8 g/dL (12.0-16.0); LYMPHOCYTES % 17.8 % (20.0-50.0); MEAN CORPUSCULAR HEMOGLOBIN 27.9 pg (28.0-32.0); MEAN PLATELET VOLUME 8.3 fl (7.4-10.4); MONOCYTES % 1.3 % (2.0-8.0); NEUTROPHILS % 80.5 % (40.0-76.0); PLATELET 440 x1000/uL (130-400); RED BLOOD CELL COUNT 4.94 mill/uL (4.2-5.4); RED CELL DISTRIBUTION WIDTH 16.2 % (11.6-14.6)
[2021-10-01 06:40] LABS: CHLORIDE 104 mEq/L (98-107)
[2021-10-01 07:09] LABS: PHOSPHORUS 3.1 mg/dL (2.5-4.9)
[2021-10-01 07:10] LABS: CREATINE KINASE 325 IU/L (26-192)
[2021-10-01 07:15] LABS: CREATINE KINASE MB FRACTION 2.5 ng/mL (0.5-3.6)
[2021-10-01] MEDS: BLOOD SUGAR DIAGNOSTIC STRIP TEST SCH ×4 (07:34→21:03)
[2021-10-01] MEDS: INSULIN LISPRO 100 UNITS/ML SUBCUT SCH ×4 (07:50→21:06)
[2021-10-01 08:05] VITALS: BP 202/93
[2021-10-01] MEDS: ASCORBIC ACID 500 MG TABLET PO SCH ×2 (08:15→21:02)
[2021-10-01] MEDS: CHOLECALCIFEROL (D3) 1000 UNIT TABLET PO SCH (08:16)
[2021-10-01] MEDS: ZINC SULFATE 220 MG ( 50 ) CAPSULE PO SCH (08:16)
[2021-10-01] MEDS: FAMOTIDINE 20MG TABLET PO SCH ×2 (08:16→21:02)
[2021-10-01] MEDS: ASPIRIN 325MG EC TABLET PO SCH (08:16)
[2021-10-01] MEDS: LOSARTAN POTASSIUM 50 MG TABLET PO SCH (09:20)
[2021-10-01] MEDS ORDERED: NALOXONE HCL 0.4MG/ML VIAL IV PRN (11:30)
[2021-10-01] MEDS: HYDROCODONE/ACETAMINOPHEN 10/325MG TABLET PO PRN ×2 (12:00→20:07)
[2021-10-01 12:25] VITALS: BP 182/95
[2021-10-01] MEDS: CLONIDINE 0.3MG TABLET PO SCH ×2 (14:23→21:02)
[2021-10-01 16:28] VITALS: BP 182/76
[2021-10-01] MEDS: AZITHROMYCIN 500 MG in DEXT 5% WATER 250 ML IV SCH (16:56)
[2021-10-01] MEDS ORDERED: AZITHROMYCIN 500MG/250ML 250 ML IV SCH (18:00)
[2021-10-01] MEDS ORDERED: CEFTRIAXONE 1 G PREMIX 50 ML IV SCH (18:00)
[2021-10-01] MEDS: CEFTRIAXONE 1,000 MG in DEXTROSE 5% WATER 50 ML IV SCH (18:29)
[2021-10-01 20:06] VITALS: BP 156/87
[2021-10-01] MEDS: ENOXAPARIN 40MG/0.4ML SYR SUBCUT SCH (21:03)
[2021-10-01] MEDS: METHYLPREDNISOLONE SOD SUCC 40 MG/ML VIAL IV SCH (21:04)
[2021-10-01] MEDS: INSULIN GLARGINE UD 100 UNITS/ML SYR SUBCUT SCH (21:06)
[2021-10-01] MEDS: ZOLPIDEM TARTRATE 5MG TABLET PO PRN (21:23)
[2021-10-01] MEDS: ACETAMINOPHEN 325MG TABLET PO PRN (21:26)
[2021-10-01] MEDS ORDERED: INSULIN GLARGINE UD 100 UNITS/ML SYR SUBCUT SCH (23:00)
[2021-10-01 23:31] VITALS: BP 140/90
[2021-10-02] MEDS: IPRATROPIUM/ALBUTEROL 0.5-3(2.5)MG/3ML NEB HHN SCH ×5 (00:46→20:10)
[2021-10-02 04:00] VITALS: BP 159/72
[2021-10-02 06:00] VITALS: BP 159/72
[2021-10-02] MEDS: CLONIDINE 0.3MG TABLET PO SCH ×3 (06:04→21:30)
[2021-10-02] MEDS: DILTIAZEM HCL 60MG TABLET PO SCH ×4 (06:04→23:49)
[2021-10-02] MEDS: BLOOD SUGAR DIAGNOSTIC STRIP TEST SCH ×4 (06:29→21:30)
[2021-10-02 08:00] VITALS: BP 162/79
[2021-10-02] MEDS: INSULIN LISPRO 100 UNITS/ML SUBCUT SCH ×4 (08:20→21:34)
[2021-10-02] MEDS: FAMOTIDINE 20MG TABLET PO SCH ×2 (08:45→21:30)
[2021-10-02] MEDS: ZINC SULFATE 220 MG ( 50 ) CAPSULE PO SCH (08:45)
[2021-10-02] MEDS: LOSARTAN POTASSIUM 50 MG TABLET PO SCH (08:48)
[2021-10-02] MEDS: ASPIRIN 325MG EC TABLET PO SCH (08:48)
[2021-10-02] MEDS: ASCORBIC ACID 500 MG TABLET PO SCH ×2 (08:48→21:30)
[2021-10-02] MEDS: CHOLECALCIFEROL (D3) 1000 UNIT TABLET PO SCH (08:48)
[2021-10-02] MEDS: HYDROCODONE/ACETAMINOPHEN 10/325MG TABLET PO PRN ×2 (08:49→21:41)
[2021-10-02] MEDS: METHYLPREDNISOLONE SOD SUCC 40 MG/ML VIAL IV SCH ×2 (08:49→20:50)
[2021-10-02] MEDS: ENOXAPARIN 40MG/0.4ML SYR SUBCUT SCH ×2 (08:50→21:30)
[2021-10-02 12:00] VITALS: BP 130/88
[2021-10-02 16:05] VITALS: BP 143/80
[2021-10-02] MEDS: CEFTRIAXONE 1,000 MG in DEXTROSE 5% WATER 50 ML IV SCH (17:11)
[2021-10-02] MEDS: AZITHROMYCIN 500 MG in DEXT 5% WATER 250 ML IV SCH (17:32)
[2021-10-02 20:00] VITALS: BP 142/74
[2021-10-02] MEDS: INSULIN GLARGINE UD 100 UNITS/ML SYR SUBCUT SCH (21:34)
[2021-10-02] MEDS: ZOLPIDEM TARTRATE 5MG TABLET PO PRN (23:49)
[2021-10-03] VITALS: BP 157/89
[2021-10-03] MEDS: IPRATROPIUM/ALBUTEROL 0.5-3(2.5)MG/3ML NEB HHN SCH ×4 (00:12→14:08)
[2021-10-03 05:30] VITALS: BP 181/76
[2021-10-03] MEDS: CLONIDINE 0.3MG TABLET PO SCH ×2 (06:08→13:49)
[2021-10-03] MEDS: DILTIAZEM HCL 60MG TABLET PO SCH ×2 (06:08→13:49)
[2021-10-03] MEDS: BLOOD SUGAR DIAGNOSTIC STRIP TEST SCH ×2 (06:32→12:20)
[2021-10-03 08:00] VITALS: BP 155/81
[2021-10-03] MEDS: CHOLECALCIFEROL (D3) 1000 UNIT TABLET PO SCH (08:59)
[2021-10-03] MEDS: ZINC SULFATE 220 MG ( 50 ) CAPSULE PO SCH (08:59)
[2021-10-03] MEDS: ASPIRIN 325MG EC TABLET PO SCH (09:00)
[2021-10-03] MEDS: FAMOTIDINE 20MG TABLET PO SCH (09:00)
[2021-10-03] MEDS: ASCORBIC ACID 500 MG TABLET PO SCH (09:00)
[2021-10-03] MEDS: LOSARTAN POTASSIUM 50 MG TABLET PO SCH (09:00)
[2021-10-03] MEDS: METHYLPREDNISOLONE SOD SUCC 40 MG/ML VIAL IV SCH (09:00)
[2021-10-03] MEDS: HYDROCODONE/ACETAMINOPHEN 10/325MG TABLET PO PRN (09:02)
[2021-10-03] MEDS: ENOXAPARIN 40MG/0.4ML SYR SUBCUT SCH (09:16)
[2021-10-03] MEDS: INSULIN LISPRO 100 UNITS/ML SUBCUT SCH ×2 (09:16→14:13)
[2021-10-03] MEDS: INSULIN GLARGINE UD 100 UNITS/ML SYR SUBCUT SCH (10:00)
[2021-10-03 12:00] VITALS: BP 159/74
[2021-10-03] MEDS: ACETAMINOPHEN 325MG TABLET PO PRN (14:09)
[2021-10-03 14:45] VITALS: BP 158/82
[2021-10-03] MEDS ORDERED: AZITHROMYCIN 500 MG TABLET PO SCH (18:00)
== END 2021-10-03 15:15 | disposition home or self-care (01) | DRG 871 ==
LOC: ER 14:59 → 6WST 17:20 → EDBEDREQTM 17:23 → EDBEDREQ 17:23 → ENRESERV 22:07
PROVIDERS: ADMIT Internal Medicine; ATTEND Internal Medicine
DX: A41.9 Sepsis, unspecified organism (principal); J18.9 Pneumonia, unspecified organism; J96.01 Acute respiratory failure with hypoxia; J44.1 Chronic obstructive pulmonary disease with (acute) exacerbation; I13.0 Hypertensive heart and chronic kidney disease with heart failure and stage 1 through stage 4 chronic kidney disease, or unspecified chronic kidney disease; I50.32 Chronic diastolic (congestive) heart failure; J44.0 Chronic obstructive pulmonary disease with (acute) lower respiratory infection; Z68.42 Body mass index [BMI] 45.0-49.9, adult; N18.9 Chronic kidney disease, unspecified; E11.22 Type 2 diabetes mellitus with diabetic chronic kidney disease; R65.20 Severe sepsis without septic shock; E11.65 Type 2 diabetes mellitus with hyperglycemia; E66.01 Morbid (severe) obesity due to excess calories; F12.10 Cannabis abuse, uncomplicated; Z20.822 Contact with and (suspected) exposure to COVID-19; Z79.4 Long term (current) use of insulin; Z98.891 History of uterine scar from previous surgery; Z79.899 Other long term (current) drug therapy; Z99.81 Dependence on supplemental oxygen; Z71.3 Dietary counseling and surveillance
CPT/HCPCS: 36415; 71045; 80053; 80305; 81003; 82550; 82553; 82962; 83605; 83615; 83735; 83880; 84100; 84145; 84443; 84484; 85025; 87426; 93005; 93306; 93970; 94640; 99291; J0456; J0696; J1650; J1815; J1885; J1940; J2270; J2405; J2920; J2930; J7060

== ENCOUNTER 2022-03-22 21:03 | Inpatient (IN) | payer MEDICARE, MEDICAID ==
[~2022-03-22] VITALS: Ht 171.4 cm; Wt 133.8 kg
[~2022-03-22 21:03] MED LIST changes: +AMLO10TA80 MT; +CARV3.1242 PO; +CLON0.3T PO; +DAPA10TA PO; -FAMO20TA8 PO; +FURO40TA5 PO; +GABA-532 PO; +HYDR-4009 PO; +HYDR100T26 MT; +INSLIS SUBCUT; +INSU100I28 SQ; +IPRA4AER INH; +LIDO30CR46 TP; +LOSA50TA41 PO; +NITR0.4T49 SL; +TIZA4CAP6 PO; +TRAZ-251 PO; +UMEC1DIS IH
[2022-03-22] MEDS ORDERED: METHYLPREDNISOLONE SOD SUCC 125 MG/2 ML VIAL IV STA (21:11)
[2022-03-22] MEDS ORDERED: IPRATROPIUM BROMIDE (0.02%) 0.5MG/2.5ML NEB HHN STA ×2 (21:11→22:55)
[2022-03-22] MEDS ORDERED: NITROGLYCERIN 0.4MG TABLET SL SL PRN (21:15)
[2022-03-22] MEDS ORDERED: ASPIRIN 81MG TABLET PO ONE (21:15)
[2022-03-22] MEDS ORDERED: ALBUTEROL (0.083%) 2.5MG/3ML NEB HHN SCH ×2 (21:30→23:00)
[2022-03-22 21:59] LABS: BASOPHILS % 0.8 % (0.0-2.0); HEMATOCRIT. 39.1 % (36.0-48.0); HEMOGLOBIN. 12.9 g/dL (12.0-16.0); LYMPHOCYTES % 45.8 % (20.0-50.0); MEAN CORPUSCULAR HEMOGLOBIN 28.9 pg (28.0-32.0); MEAN CORPUSCULAR VOLUME 87.4 fL (81.0-99.0); MEAN PLATELET VOLUME 8.1 fl (7.4-10.4); MONOCYTES % 11.3 % (2.0-8.0); NEUTROPHILS % 40.1 % (40.0-76.0); PLATELET 309 x1000/uL (130-400); RED BLOOD CELL COUNT 4.47 mill/uL (4.2-5.4); RED CELL DISTRIBUTION WIDTH 15.3 % (11.6-14.6)
[2022-03-22 22:08] LABS: CHLORIDE 108 mEq/L (98-107)
[2022-03-22] MEDS ORDERED: POTASSIUM CHLORIDE 20MEQ/PACKET PO ONE (23:00)
[2022-03-22] MEDS ORDERED: METHYLPREDNISOLONE SOD SUCC 125 MG/2 ML VIAL IV NR (23:30)
[2022-03-22] MEDS ORDERED: POTASSIUM CHLORIDE 20MEQ/PACKET PO NR (23:30)
[2022-03-23] MEDS: ASPIRIN 81MG TABLET PO NR ×2 (00:09→00:46)
[2022-03-23] MEDS ORDERED: MORPHINE SULFATE 4 MG/ML CPJ (NOT FOR IM USE) IV ONE (00:15)
[2022-03-23] MEDS ORDERED: MAGNESIUM 1 G PREMIX 100 ML IV ONE (00:45)
[2022-03-23 01:10] LABS: BG CARBOXYHEMOGLOBIN 0.3 % (0.5-1.5); BG FRACTION INSPIRED OXYGEN 36; BG METHEMOGLOBIN 0.1 % (0.0-1.5); BG OXYHEMOGLOBIN 97.6 % (94.0-97.0); BG PCO2 48.3 mmHg (35.0-45.0); BG PH 7.365 (7.350-7.450); BG PO2 127.4 mmHg (75.0-100.0); BG SAMPLE SITE RIGHT RADIAL; BG TOTAL HEMOGLOBIN 13.2 g/dL (12.0-18.0); BG VENT MODE NASAL CANNULA
[2022-03-23] MEDS ORDERED: PREG100C MT (07:37)
[2022-03-23] MEDS ORDERED: DAPA10TA PO (07:37)
[2022-03-23 08:00] VITALS: BP 137/89
[2022-03-23] MEDS ORDERED: ONDANSETRON HCL 4MG/2ML INJ IV PRN (08:15)
[2022-03-23] MEDS ORDERED: CLONIDINE 0.1MG TABLET PO PRN (08:15)
[2022-03-23] MEDS ORDERED: IPRATROPIUM/ALBUTEROL 0.5-3(2.5)MG/3ML NEB HHN PRN (08:15)
[2022-03-23] MEDS ORDERED: GUAIFENESIN 200MG/10ML SUGAR FREE UDC PO PRN (08:15)
[2022-03-23] MEDS ORDERED: LEVOFLOXACIN 500MG PREMIX 100 ML IV SCH (08:15)
[2022-03-23] MEDS ORDERED: ENOXAPARIN 40MG/0.4ML SYR SUBCUT SCH (08:15)
[2022-03-23] MEDS ORDERED: TRAMADOL 50MG TABLET PO PRN (08:15)
[2022-03-23] MEDS ORDERED: ACETAMINOPHEN 325MG TABLET PO PRN (08:15)
[2022-03-23] MEDS ORDERED: NALOXONE HCL 0.4MG/ML VIAL IV PRN (08:45)
[2022-03-23] MEDS ORDERED: FUROSEMIDE 40MG TABLET PO SCH (09:00)
[2022-03-23] MEDS: METHYLPREDNISOLONE SOD SUCC 125 MG/2 ML VIAL IV SCH ×3 (09:25→21:30)
[2022-03-23] MEDS: LOSARTAN POTASSIUM 50 MG TABLET PO SCH ×2 (09:25→21:32)
[2022-03-23] MEDS: HYDROCODONE/ACETAMINOPHEN 10/325MG TABLET PO PRN ×2 (09:25→15:41)
[2022-03-23] MEDS: AMLODIPINE 10MG TABLET PO SCH (09:26)
[2022-03-23] MEDS: GABAPENTIN 300MG CAPSULE PO SCH ×3 (09:26→17:05)
[2022-03-23] MEDS: CARVEDILOL 3.125 MG TABLET PO SCH ×2 (09:26→21:30)
[2022-03-23] MEDS: ENOXAPARIN 30MG/0.3ML SYR SUBCUT SCH ×2 (09:27→21:31)
[2022-03-23] MEDS ORDERED: LEVOFLOXACIN 750MG PREMIX 150 ML IV SCH (11:00)
[2022-03-23] MEDS ORDERED: CLONIDINE 0.3MG TABLET PO SCH (11:00)
[2022-03-23 12:00] VITALS: BP 165/89
[2022-03-23] MEDS: HYDRALAZINE HCL 100MG TABLET PO SCH ×2 (12:01→17:06)
[2022-03-23] MEDS: POTASSIUM CHLORIDE 20MEQ TABLET SR PO NR (12:02)
[2022-03-23] MEDS: CLONIDINE 0.3MG TABLET PO SCH ×2 (12:02→17:08)
[2022-03-23] MEDS: INSULIN LISPRO 100 UNITS/ML SUBCUT SCH ×2 (12:04→17:09)
[2022-03-23] MEDS ORDERED: INSULIN GLARGINE 100 UNITS/ML SUBCUT NR (12:15)
[2022-03-23] MEDS: IPRATROPIUM/ALBUTEROL 0.5-3(2.5)MG/3ML NEB HHN SCH ×2 (14:54→21:16)
[2022-03-23 15:30] VITALS: BP 150/60
[2022-03-23 16:00] VITALS: BP 128/78
[2022-03-23 16:17] LABS: CREATINE KINASE MB FRACTION 3.8 ng/mL (0.5-3.6)
[2022-03-23] MEDS: FUROSEMIDE 40MG/4ML VIAL IVP SCH (17:06)
[2022-03-23 20:00] VITALS: BP 146/82
[2022-03-23] MEDS: CLONIDINE 0.2MG TABLET PO SCH (21:30)
[2022-03-23] MEDS: INSULIN GLARGINE 100 UNITS/ML SUBCUT SCH (21:31)
[2022-03-23] MEDS: TRAZODONE HCL 50MG TABLET PO SCH (21:32)
[2022-03-24] VITALS: BP 133/63
[2022-03-24] MEDS: IPRATROPIUM/ALBUTEROL 0.5-3(2.5)MG/3ML NEB HHN SCH ×3 (01:34→20:51)
[2022-03-24 04:00] VITALS: BP 137/63
[2022-03-24] MEDS: METHYLPREDNISOLONE SOD SUCC 125 MG/2 ML VIAL IV SCH ×4 (04:39→21:52)
[2022-03-24 06:20] LABS: BASOPHILS % 0.2 % (0.0-2.0); HEMATOCRIT. 39.6 % (36.0-48.0); HEMOGLOBIN. 13.1 g/dL (12.0-16.0); MEAN CORPUSCULAR VOLUME 87.6 fL (81.0-99.0); MEAN PLATELET VOLUME 8.7 fl (7.4-10.4); MONOCYTES % 5.6 % (2.0-8.0); NEUTROPHILS % 82.2 % (40.0-76.0); PLATELET 314 x1000/uL (130-400); RED BLOOD CELL COUNT 4.52 mill/uL (4.2-5.4); RED CELL DISTRIBUTION WIDTH 15.7 % (11.6-14.6)
[2022-03-24 06:39] LABS: CHLORIDE 108 mEq/L (98-107)
[2022-03-24] MEDS: FUROSEMIDE 40MG/4ML VIAL IVP SCH ×2 (07:02→16:42)
[2022-03-24 07:06] LABS: CREATINE KINASE MB FRACTION 3.6 ng/mL (0.5-3.6)
[2022-03-24 08:00] VITALS: BP 152/83
[2022-03-24] MEDS: HYDRALAZINE HCL 100MG TABLET PO SCH ×3 (08:29→16:42)
[2022-03-24] MEDS: LOSARTAN POTASSIUM 50 MG TABLET PO SCH ×2 (08:29→21:50)
[2022-03-24] MEDS: CLONIDINE 0.3MG TABLET PO SCH ×3 (08:29→16:43)
[2022-03-24] MEDS: CARVEDILOL 3.125 MG TABLET PO SCH ×2 (08:30→21:51)
[2022-03-24] MEDS: AMLODIPINE 10MG TABLET PO SCH (08:30)
[2022-03-24] MEDS: GABAPENTIN 300MG CAPSULE PO SCH ×3 (08:30→16:42)
[2022-03-24] MEDS: ENOXAPARIN 30MG/0.3ML SYR SUBCUT SCH (08:32)
[2022-03-24] MEDS: INSULIN LISPRO 100 UNITS/ML SUBCUT SCH ×3 (08:32→16:53)
[2022-03-24] MEDS: HYDROCODONE/ACETAMINOPHEN 10/325MG TABLET PO PRN ×2 (09:10→21:52)
[2022-03-24] MEDS: INSULIN GLARGINE 100 UNITS/ML SUBCUT SCH ×2 (09:16→21:53)
[2022-03-24] MEDS: DOCUSATE SODIUM 100MG CAPSULE PO PRN ×2 (10:30→21:51)
[2022-03-24] MEDS: POTASSIUM CHLORIDE 20MEQ TABLET SR PO NR (10:31)
[2022-03-24 12:00] VITALS: BP 120/59
[2022-03-24 16:00] VITALS: BP 130/57
[2022-03-24 20:00] VITALS: BP 147/66
[2022-03-24] MEDS: TRAZODONE HCL 50MG TABLET PO SCH (21:51)
[2022-03-24] MEDS: ENOXAPARIN 40MG/0.4ML SYR SUBCUT SCH (21:52)
[2022-03-24] MEDS: CLONIDINE 0.2MG TABLET PO SCH (21:54)
[2022-03-25] VITALS: BP 116/50
[2022-03-25] MEDS: IPRATROPIUM/ALBUTEROL 0.5-3(2.5)MG/3ML NEB HHN SCH ×2 (01:04→08:15)
[2022-03-25] MEDS: METHYLPREDNISOLONE SOD SUCC 125 MG/2 ML VIAL IV SCH ×2 (02:39→08:35)
[2022-03-25 04:00] VITALS: BP 124/59
[2022-03-25] MEDS: FUROSEMIDE 40MG/4ML VIAL IVP SCH (06:37)
[2022-03-25 08:00] VITALS: BP 139/72
[2022-03-25] MEDS: HYDRALAZINE HCL 100MG TABLET PO SCH ×2 (08:34→12:42)
[2022-03-25] MEDS: GABAPENTIN 300MG CAPSULE PO SCH ×2 (08:34→12:42)
[2022-03-25] MEDS: LOSARTAN POTASSIUM 50 MG TABLET PO SCH (08:35)
[2022-03-25] MEDS: CARVEDILOL 3.125 MG TABLET PO SCH (08:35)
[2022-03-25] MEDS: AMLODIPINE 10MG TABLET PO SCH (08:35)
[2022-03-25] MEDS: ENOXAPARIN 40MG/0.4ML SYR SUBCUT SCH (08:36)
[2022-03-25] MEDS: INSULIN LISPRO 100 UNITS/ML SUBCUT SCH ×2 (08:42→12:43)
[2022-03-25] MEDS: CLONIDINE 0.3MG TABLET PO SCH ×2 (08:44→12:42)
[2022-03-25] MEDS: INSULIN GLARGINE 100 UNITS/ML SUBCUT SCH (09:23)
[2022-03-25] MEDS: POTASSIUM CHLORIDE 20MEQ TABLET SR PO NR (10:31)
[2022-03-25 12:00] VITALS: BP 139/76
[2022-03-25 13:42] VITALS: BP 139/76
== END 2022-03-25 16:40 | disposition home or self-care (01) | DRG 291 ==
LOC: ER 21:03 → 5EST 03-23 01:14 → EDBEDREQ 03-23 01:16 → EDBEDREQDT 03-23 01:16 → EDBEDREQTM 03-23 01:16 → EDBEDREQSVC 03-23 01:17 → ENRESERV 03-23 03:31
PROVIDERS: ADMIT Hospitalist; ATTEND Hospitalist
PROC: 5A09357 Assistance with Respiratory Ventilation, Less than 24 Consecutive Hours, Continuous Positive Airway Pressure (ICD-10-PCS; 2022-03-22)
PROC: 5A09357 Assistance with Respiratory Ventilation, Less than 24 Consecutive Hours, Continuous Positive Airway Pressure (ICD-10-PCS; principal; 2022-03-23)
PROC: 5A09357 Assistance with Respiratory Ventilation, Less than 24 Consecutive Hours, Continuous Positive Airway Pressure (ICD-10-PCS; 2022-03-24)
PROC: 5A09357 Assistance with Respiratory Ventilation, Less than 24 Consecutive Hours, Continuous Positive Airway Pressure (ICD-10-PCS; 2022-03-25)
DX: I11.0 Hypertensive heart disease with heart failure (principal); J96.01 Acute respiratory failure with hypoxia; I50.33 Acute on chronic diastolic (congestive) heart failure; J44.1 Chronic obstructive pulmonary disease with (acute) exacerbation; J84.9 Interstitial pulmonary disease, unspecified; E11.40 Type 2 diabetes mellitus with diabetic neuropathy, unspecified; E78.5 Hyperlipidemia, unspecified; E87.6 Hypokalemia; G47.33 Obstructive sleep apnea (adult) (pediatric); Z82.49 Family history of ischemic heart disease and other diseases of the circulatory system; Z98.891 History of uterine scar from previous surgery; Z99.81 Dependence on supplemental oxygen; Z79.899 Other long term (current) drug therapy
CPT/HCPCS: 36415; 36600; 71045; 80053; 82375; 82550; 82553; 82805; 82962; 83605; 83880; 84145; 84484; 85025; 93005; 94640; 94660; 99291; J1650; J1815; J1940; J1956; J2270; J2930; J3475

== ENCOUNTER 2022-07-11 13:43 | Inpatient (IN) | payer MEDICARE, MEDICAID ==
[~2022-07-11] VITALS: Ht 170.2 cm; Wt 131.1 kg
[2022-07-11] MEDS: AMLODIPINE 10MG TABLET PO SCH (02:00)
[~2022-07-11 13:43] MED LIST changes: +PREG100C MT
[2022-07-11] MEDS ORDERED: IPRATROPIUM BROMIDE (0.02%) 0.5MG/2.5ML NEB HHN STA ×2 (14:32→16:54)
[2022-07-11] MEDS ORDERED: ALBUTEROL (0.083%) 2.5MG/3ML NEB HHN STA ×2 (14:32→16:54)
[2022-07-11 14:51] LABS: BASOPHILS % 0.9 % (0.0-2.0); EOSINOPHILS % 2.4 % (0.0-5.0); HEMATOCRIT. 42.7 % (36.0-48.0); LYMPHOCYTES % 42.5 % (20.0-50.0); MEAN CORPUSCULAR VOLUME 85.7 fL (81.0-99.0); MEAN PLATELET VOLUME 8.2 fl (7.4-10.4); MONOCYTES % 10.4 % (2.0-8.0); NEUTROPHILS % 43.8 % (40.0-76.0); PLATELET 319 x1000/uL (130-400); RED BLOOD CELL COUNT 4.98 mill/uL (4.2-5.4); RED CELL DISTRIBUTION WIDTH 15.9 % (11.6-14.6)
[2022-07-11 14:59] LABS: CHLORIDE 106 mEq/L (98-107)
[2022-07-11] MEDS ORDERED: MORPHINE SULFATE 4 MG/ML CPJ (NOT FOR IM USE) IV STA (16:29)
[2022-07-11] MEDS ORDERED: ONDANSETRON HCL 4MG/2ML INJ IV STA (16:29)
[2022-07-11] MEDS ORDERED: ASPIRIN 81MG TABLET PO ONE (16:30)
[2022-07-11] MEDS ORDERED: NITROGLYCERIN OINT 1GM/INCH UDPKT TD ONE (16:30)
[2022-07-11] MEDS ORDERED: METHYLPREDNISOLONE SOD SUCC 125 MG/2 ML VIAL IV STA (16:54)
[2022-07-11] MEDS ORDERED: MAGNESIUM 2 G PREMIX 50 ML IV STA (16:54)
[2022-07-11] MEDS ORDERED: ONDANSETRON HCL 4MG/2ML INJ IV PRN (21:45)
[2022-07-11] MEDS ORDERED: DOCUSATE SODIUM 100MG CAPSULE PO PRN (21:45)
[2022-07-11] MEDS ORDERED: MAGNESIUM/ALUMINUM HYDROXIDE/SIMETHICONE 30ML UDC PO PRN (21:45)
[2022-07-11] MEDS ORDERED: HYDROCODONE/ACETAMINOPHEN 5/325MG TABLET PO PRN (21:45)
[2022-07-11] MEDS ORDERED: GUAIFENESIN 200MG/10ML SUGAR FREE UDC PO PRN (21:45)
[2022-07-11] MEDS ORDERED: ACETAMINOPHEN 325MG TABLET PO PRN (21:45)
[2022-07-11] MEDS ORDERED: NALOXONE HCL 0.4MG/ML VIAL IV PRN (22:00)
[2022-07-11] MEDS: NITROGLYCERIN 0.4MG TABLET SL SL SCH (22:47)
[2022-07-11] MEDS: IPRATROPIUM/ALBUTEROL 0.5-3(2.5)MG/3ML NEB HHN PRN (22:52)
[2022-07-12] MEDS: INSULIN GLARGINE 100 UNITS/ML SUBCUT SCH ×3 (00:33→20:33)
[2022-07-12] MEDS: ENOXAPARIN 30MG/0.3ML SYR SUBCUT SCH ×3 (00:36→20:33)
[2022-07-12] MEDS: CLONIDINE 0.1MG TABLET PO PRN ×2 (03:44→15:11)
[2022-07-12 05:00] LABS: CHLORIDE 106 mEq/L (98-107)
[2022-07-12 05:17] LABS: HDL CHOLESTEROL 57 mg/dL (40-59); LDL CHOLESTEROL 115 mg/dL (5-100)
[2022-07-12 05:25] LABS: BASOPHILS % 0.1 % (0.0-2.0); HEMATOCRIT. 41.5 % (36.0-48.0); HEMOGLOBIN. 13.4 g/dL (12.0-16.0); LYMPHOCYTES % 16.6 % (20.0-50.0); MEAN CORPUSCULAR HEMOGLOBIN 28.1 pg (28.0-32.0); MEAN CORPUSCULAR VOLUME 86.7 fL (81.0-99.0); MEAN PLATELET VOLUME 8.4 fl (7.4-10.4); MONOCYTES % 1.5 % (2.0-8.0); NEUTROPHILS % 81.8 % (40.0-76.0); PLATELET 338 x1000/uL (130-400); RED BLOOD CELL COUNT 4.78 mill/uL (4.2-5.4); RED CELL DISTRIBUTION WIDTH 15.8 % (11.6-14.6)
[2022-07-12] MEDS: BLOOD SUGAR DIAGNOSTIC STRIP TEST SCH ×4 (08:40→20:33)
[2022-07-12] MEDS: IPRATROPIUM/ALBUTEROL 0.5-3(2.5)MG/3ML NEB HHN PRN (08:47)
[2022-07-12] MEDS: LOSARTAN POTASSIUM 50 MG TABLET PO SCH ×2 (10:18→18:47)
[2022-07-12] MEDS: FUROSEMIDE 40MG TABLET PO SCH ×2 (10:18→18:46)
[2022-07-12] MEDS: AMLODIPINE 10MG TABLET PO SCH (10:20)
[2022-07-12] MEDS: CARVEDILOL 3.125 MG TABLET PO SCH ×2 (10:20→18:46)
[2022-07-12] MEDS: ASPIRIN 81MG EC TABLET PO SCH (10:32)
[2022-07-12] MEDS: GABAPENTIN 300MG CAPSULE PO SCH ×3 (10:50→18:45)
[2022-07-12] MEDS: HYDROCODONE/ACETAMINOPHEN 10/325MG TABLET PO PRN (11:58)
[2022-07-12] MEDS: INSULIN LISPRO 100 UNITS/ML SUBCUT SCH ×3 (12:00→20:34)
[2022-07-12] MEDS: BUDESONIDE 0.5MG/2ML NEB HHN SCH ×2 (13:21→21:00)
[2022-07-12] MEDS: IPRATROPIUM/ALBUTEROL 0.5-3(2.5)MG/3ML NEB HHN SCH ×2 (13:21→18:00)
[2022-07-12] MEDS ORDERED: LOSARTAN POTASSIUM 50 MG TABLET PO SCH (15:45)
[2022-07-12] MEDS: NITROGLYCERIN 0.4MG TABLET SL SL SCH (16:37)
[2022-07-12 18:15] VITALS: BP 175/81
[2022-07-12] MEDS: TRAMADOL 50MG TABLET PO PRN (18:46)
[2022-07-12 20:00] VITALS: BP_SYST 156; BP_SYST 180; BP_DIAS 68; BP_DIAS 82
[2022-07-12] MEDS: TRAZODONE HCL 50MG TABLET PO SCH (20:32)
[2022-07-12] MEDS: LORAZEPAM 1MG TABLET PO PRN (20:32)
[2022-07-12] MEDS: HYDRALAZINE HCL 100MG TABLET PO SCH (21:05)
[2022-07-12] MEDS: CLONIDINE 0.3MG TABLET PO SCH (21:05)
[2022-07-12 23:21] LABS: CREATINE KINASE MB FRACTION 5.2 ng/mL (0.5-3.6)
[2022-07-13] VITALS (7 sets, daily range): BP systolic 113–154; BP diastolic 53–86
[2022-07-13] MEDS: CLONIDINE 0.3MG TABLET PO SCH ×3 (05:12→21:35)
[2022-07-13] MEDS: HYDRALAZINE HCL 100MG TABLET PO SCH ×3 (05:12→21:34)
[2022-07-13] MEDS: BLOOD SUGAR DIAGNOSTIC STRIP TEST SCH ×4 (05:30→21:35)
[2022-07-13] MEDS: INSULIN LISPRO 100 UNITS/ML SUBCUT SCH ×4 (05:30→21:00)
[2022-07-13] MEDS: IPRATROPIUM/ALBUTEROL 0.5-3(2.5)MG/3ML NEB HHN SCH ×4 (06:00→21:02)
[2022-07-13] MEDS ORDERED: NITROGLYCERIN SPRAY/4.9GM CAN TL NR (08:30)
[2022-07-13] MEDS ORDERED: IOHEXOL-350 100 ML BOTTLE ONE ×2 (09:15→09:40)
[2022-07-13] MEDS: GABAPENTIN 300MG CAPSULE PO SCH ×3 (09:46→17:08)
[2022-07-13] MEDS: LOSARTAN POTASSIUM 50 MG TABLET PO SCH ×2 (09:46→21:35)
[2022-07-13] MEDS: FUROSEMIDE 40MG TABLET PO SCH ×2 (09:47→17:08)
[2022-07-13] MEDS: CARVEDILOL 3.125 MG TABLET PO SCH ×2 (09:48→17:08)
[2022-07-13] MEDS: AMLODIPINE 10MG TABLET PO SCH (09:49)
[2022-07-13] MEDS: ASPIRIN 81MG EC TABLET PO SCH (09:49)
[2022-07-13] MEDS: ENOXAPARIN 30MG/0.3ML SYR SUBCUT SCH ×2 (09:50→21:36)
[2022-07-13] MEDS: INSULIN GLARGINE 100 UNITS/ML SUBCUT SCH ×2 (10:01→21:37)
[2022-07-13] MEDS: TRAMADOL 50MG TABLET PO PRN (10:45)
[2022-07-13] MEDS: BUDESONIDE 0.5MG/2ML NEB HHN SCH ×2 (11:41→21:03)
[2022-07-13] MEDS ORDERED: LIP40 MT (12:11)
[2022-07-13] MEDS: MORPHINE SULFATE 2 MG/ML CPJ (NOT FOR IM USE) IV PRN (15:41)
[2022-07-13] MEDS: LORAZEPAM 1MG TABLET PO PRN (15:41)
[2022-07-13 16:09] LABS: CREATINE KINASE MB FRACTION 3.6 ng/mL (0.5-3.6)
[2022-07-13 16:17] LABS: T4 FREE 0.85 ng/dL (0.76-1.46)
[2022-07-13] MEDS: IPRATROPIUM/ALBUTEROL 0.5-3(2.5)MG/3ML NEB HHN PRN (18:28)
[2022-07-13] MEDS: TRAZODONE HCL 50MG TABLET PO SCH (21:35)
[2022-07-14] VITALS: BP 120/67
[2022-07-14] MEDS: IPRATROPIUM/ALBUTEROL 0.5-3(2.5)MG/3ML NEB HHN SCH ×4 (01:07→20:32)
[2022-07-14 04:00] VITALS: BP 119/59
[2022-07-14] MEDS: HYDRALAZINE HCL 100MG TABLET PO SCH ×3 (06:29→21:00)
[2022-07-14] MEDS: CLONIDINE 0.3MG TABLET PO SCH ×3 (06:30→21:00)
[2022-07-14] MEDS: INSULIN LISPRO 100 UNITS/ML SUBCUT SCH ×4 (06:30→21:00)
[2022-07-14] MEDS: BLOOD SUGAR DIAGNOSTIC STRIP TEST SCH ×4 (06:30→21:02)
[2022-07-14] MEDS: HYDROCODONE/ACETAMINOPHEN 10/325MG TABLET PO PRN ×3 (09:31→21:30)
[2022-07-14] MEDS: LOSARTAN POTASSIUM 50 MG TABLET PO SCH ×2 (09:32→21:00)
[2022-07-14] MEDS: ENOXAPARIN 30MG/0.3ML SYR SUBCUT SCH (09:32)
[2022-07-14] MEDS: ASPIRIN 81MG EC TABLET PO SCH (09:32)
[2022-07-14] MEDS: AMLODIPINE 10MG TABLET PO SCH (09:32)
[2022-07-14] MEDS: FUROSEMIDE 40MG TABLET PO SCH ×2 (09:32→17:55)
[2022-07-14] MEDS: INSULIN GLARGINE 100 UNITS/ML SUBCUT SCH ×2 (09:33→21:01)
[2022-07-14] MEDS: BUDESONIDE 0.5MG/2ML NEB HHN SCH ×2 (09:43→20:32)
[2022-07-14] MEDS: CARVEDILOL 3.125 MG TABLET PO SCH ×2 (09:52→17:56)
[2022-07-14] MEDS: GABAPENTIN 300MG CAPSULE PO SCH ×3 (09:53→17:55)
[2022-07-14] MEDS: LORAZEPAM 1MG TABLET PO PRN (10:13)
[2022-07-14] MEDS ORDERED: LIDOCAINE HCL/PF 1% 2ML VIAL ONE (11:21)
[2022-07-14 11:49] LABS: BG BASE EXCESS 3.7 mmol/L (-2.0-2.0); BG CARBOXYHEMOGLOBIN 0.4 % (0.5-1.5); BG DEOXYHEMOGLOBIN 5.1 % (0.0-5.0); BG FRACTION INSPIRED OXYGEN 24; BG HCO3 ACT 28.7 mmol/L (22.0-26.0); BG METHEMOGLOBIN 0.1 % (0.0-1.5); BG OXYGEN SATURATION 94.9 % (92.0-98.5); BG OXYHEMOGLOBIN 94.4 % (94.0-97.0); BG PCO2 44.6 mmHg (35.0-45.0); BG PH 7.427 (7.350-7.450); BG PO2 71.6 mmHg (75.0-100.0); BG SAMPLE SITE LEFT RADIAL; BG TOTAL HEMOGLOBIN 14.8 g/dL (12.0-18.0); BG VENT MODE NASAL CANNULA
[2022-07-14 12:00] VITALS: BP 125/62
[2022-07-14 15:20] LABS: CHLORIDE 100 mEq/L (98-107)
[2022-07-14 16:00] VITALS: BP 153/67
[2022-07-14] MEDS: METHYLPREDNISOLONE SOD SUCC 40 MG/ML VIAL IV SCH (17:58)
[2022-07-14 20:00] VITALS: BP 114/48
[2022-07-14] MEDS: TRAZODONE HCL 50MG TABLET PO SCH (21:00)
[2022-07-14] MEDS: ENOXAPARIN 40MG/0.4ML SYR SUBCUT SCH (21:00)
[2022-07-15] VITALS: BP 136/68
[2022-07-15] MEDS: IPRATROPIUM/ALBUTEROL 0.5-3(2.5)MG/3ML NEB HHN SCH ×4 (01:51→20:07)
[2022-07-15 04:00] VITALS: BP 146/64
[2022-07-15] MEDS: CLONIDINE 0.3MG TABLET PO SCH ×3 (05:39→21:26)
[2022-07-15] MEDS: HYDRALAZINE HCL 100MG TABLET PO SCH ×3 (05:40→21:27)
[2022-07-15] MEDS: BLOOD SUGAR DIAGNOSTIC STRIP TEST SCH ×4 (07:35→21:27)
[2022-07-15 08:00] VITALS: BP 129/61
[2022-07-15] MEDS: BUDESONIDE 0.5MG/2ML NEB HHN SCH ×2 (08:43→20:08)
[2022-07-15] MEDS: HYDROCODONE/ACETAMINOPHEN 10/325MG TABLET PO PRN ×3 (09:10→16:46)
[2022-07-15] MEDS: ENOXAPARIN 40MG/0.4ML SYR SUBCUT SCH ×2 (09:19→21:28)
[2022-07-15] MEDS: METHYLPREDNISOLONE SOD SUCC 40 MG/ML VIAL IV SCH (09:21)
[2022-07-15] MEDS: INSULIN LISPRO 100 UNITS/ML SUBCUT SCH ×4 (09:21→21:27)
[2022-07-15] MEDS: GABAPENTIN 300MG CAPSULE PO SCH ×3 (09:23→16:42)
[2022-07-15] MEDS: ASPIRIN 81MG EC TABLET PO SCH (09:23)
[2022-07-15] MEDS: CARVEDILOL 3.125 MG TABLET PO SCH ×2 (09:23→16:42)
[2022-07-15] MEDS: FUROSEMIDE 40MG TABLET PO SCH ×2 (09:23→16:43)
[2022-07-15] MEDS: LOSARTAN POTASSIUM 50 MG TABLET PO SCH ×2 (09:23→21:26)
[2022-07-15] MEDS: AMLODIPINE 10MG TABLET PO SCH (09:24)
[2022-07-15] MEDS: INSULIN GLARGINE 100 UNITS/ML SUBCUT SCH ×2 (09:27→21:28)
[2022-07-15 12:00] VITALS: BP 138/71
[2022-07-15] MEDS ORDERED: BUDESONIDE 0.5MG/2ML NEB HHN SCH (12:30)
[2022-07-15] MEDS ORDERED: P50 MT (12:35)
[2022-07-15] MEDS: TRAMADOL 50MG TABLET PO PRN (13:14)
[2022-07-15 16:00] VITALS: BP 131/66
[2022-07-15 20:00] VITALS: BP 136/59
[2022-07-15] MEDS: TRAZODONE HCL 50MG TABLET PO SCH (21:26)
[2022-07-16] VITALS: BP 121/65
[2022-07-16] MEDS: IPRATROPIUM/ALBUTEROL 0.5-3(2.5)MG/3ML NEB HHN SCH ×3 (01:09→15:44)
[2022-07-16] MEDS: MORPHINE SULFATE 2 MG/ML CPJ (NOT FOR IM USE) IV PRN (03:39)
[2022-07-16 04:00] VITALS: BP 114/53
[2022-07-16] MEDS: CLONIDINE 0.3MG TABLET PO SCH ×2 (06:03→15:09)
[2022-07-16] MEDS: HYDRALAZINE HCL 100MG TABLET PO SCH ×2 (06:03→15:09)
[2022-07-16 07:41] VITALS: BP 124/66
[2022-07-16] MEDS: BLOOD SUGAR DIAGNOSTIC STRIP TEST SCH ×2 (07:51→12:32)
[2022-07-16] MEDS: INSULIN LISPRO 100 UNITS/ML SUBCUT SCH ×2 (08:10→12:33)
[2022-07-16] MEDS: GABAPENTIN 300MG CAPSULE PO SCH ×2 (08:21→15:09)
[2022-07-16] MEDS: ASPIRIN 81MG EC TABLET PO SCH (08:22)
[2022-07-16] MEDS: CARVEDILOL 3.125 MG TABLET PO SCH (08:22)
[2022-07-16] MEDS: LOSARTAN POTASSIUM 50 MG TABLET PO SCH (08:22)
[2022-07-16] MEDS: AMLODIPINE 10MG TABLET PO SCH (08:22)
[2022-07-16] MEDS: ENOXAPARIN 40MG/0.4ML SYR SUBCUT SCH (08:23)
[2022-07-16] MEDS: FUROSEMIDE 40MG TABLET PO SCH (08:24)
[2022-07-16] MEDS: HYDROCODONE/ACETAMINOPHEN 10/325MG TABLET PO PRN ×3 (08:28→15:17)
[2022-07-16] MEDS: METHYLPREDNISOLONE SOD SUCC 40 MG/ML VIAL IV SCH (08:28)
[2022-07-16] MEDS: BUDESONIDE 0.5MG/2ML NEB HHN SCH (11:12)
[2022-07-16 11:36] VITALS: BP 127/71
[2022-07-16] MEDS: INSULIN GLARGINE 100 UNITS/ML SUBCUT SCH (13:19)
[2022-07-16 15:58] VITALS: BP 127/71
== END 2022-07-16 16:26 | disposition home or self-care (01) | DRG 291 ==
LOC: ER 13:54 → MICUSO 17:51 → 7WST 07-12 18:30
PROVIDERS: ADMIT Hospitalist; ATTEND Hospitalist
PROC: 5A09357 Assistance with Respiratory Ventilation, Less than 24 Consecutive Hours, Continuous Positive Airway Pressure (ICD-10-PCS; principal; 2022-07-13)
PROC: 5A09357 Assistance with Respiratory Ventilation, Less than 24 Consecutive Hours, Continuous Positive Airway Pressure (ICD-10-PCS; 2022-07-14)
PROC: 5A09357 Assistance with Respiratory Ventilation, Less than 24 Consecutive Hours, Continuous Positive Airway Pressure (ICD-10-PCS; 2022-07-15)
DX: I11.0 Hypertensive heart disease with heart failure (principal); I50.33 Acute on chronic diastolic (congestive) heart failure; J96.21 Acute and chronic respiratory failure with hypoxia; J44.1 Chronic obstructive pulmonary disease with (acute) exacerbation; Z68.42 Body mass index [BMI] 45.0-49.9, adult; I16.1 Hypertensive emergency; Z20.822 Contact with and (suspected) exposure to COVID-19; G89.29 Other chronic pain; G47.33 Obstructive sleep apnea (adult) (pediatric); E11.9 Type 2 diabetes mellitus without complications; E78.5 Hyperlipidemia, unspecified; E66.9 Obesity, unspecified; M19.90 Unspecified osteoarthritis, unspecified site; E83.52 Hypercalcemia; D64.9 Anemia, unspecified; Z82.49 Family history of ischemic heart disease and other diseases of the circulatory system; Z83.3 Family history of diabetes mellitus; Z96.659 Presence of unspecified artificial knee joint; Z87.891 Personal history of nicotine dependence; Z99.81 Dependence on supplemental oxygen; Z98.891 History of uterine scar from previous surgery; R07.89 Other chest pain
CPT/HCPCS: 36415; 36600; 71045; 75571; 80048; 80053; 80061; 82375; 82550; 82553; 82805; 82962; 83036; 83880; 84439; 84443; 84484; 85025; 85379; 87426; 93005; 93306; 93970; 94640; 94660; 99285; J1650; J1815; J2270; J2405; J2920; J2930; J3475; J3490; J7626; Q9967

== ENCOUNTER 2022-09-10 14:52 | Inpatient (IN) | payer MEDICARE, MEDICAID ==
[~2022-09-10] VITALS: Ht 177.8 cm; Wt 113.7 kg
[~2022-09-10 14:52] MED LIST changes: +LIP40 MT; +P50 MT
[2022-09-10] MEDS ORDERED: MORPHINE SULFATE 4 MG/ML CPJ (NOT FOR IM USE) IV ONE (16:30)
[2022-09-10 17:24] LABS: EOSINOPHILS % 3.9 % (0.0-5.0); HEMATOCRIT. 42.6 % (36.0-48.0); HEMOGLOBIN. 14.2 g/dL (12.0-16.0); LYMPHOCYTES % 29.9 % (20.0-50.0); MEAN CORPUSCULAR HEMOGLOBIN 28.5 pg (28.0-32.0); MEAN CORPUSCULAR VOLUME 85.6 fL (81.0-99.0); MEAN PLATELET VOLUME 8.3 fl (7.4-10.4); MONOCYTES % 11.7 % (2.0-8.0); NEUTROPHILS % 53.5 % (40.0-76.0); PLATELET 339 x1000/uL (130-400); RED BLOOD CELL COUNT 4.97 mill/uL (4.2-5.4); RED CELL DISTRIBUTION WIDTH 15.4 % (11.6-14.6)
[2022-09-10 17:30] LABS: CHLORIDE 104 mEq/L (98-107)
[2022-09-10] MEDS ORDERED: DOBUTAMINE 250MG PREMIX 250 ML IV STA (17:33)
[2022-09-10] MEDS ORDERED: CALCIUM GLUCONATE 100MG/ML 10ML VIAL IV ONE (17:45)
[2022-09-10] MEDS ORDERED: CEFTRIAXONE 1 G PREMIX 50 ML IV NR (19:00)
[2022-09-10] MEDS ORDERED: AZITHROMYCIN 500MG/250ML 250 ML IV NR (19:00)
[2022-09-10] MEDS: HYDROCODONE/ACETAMINOPHEN 10/325MG TABLET PO PRN (22:04)
[2022-09-11] MEDS ORDERED: CLONIDINE 0.1MG TABLET PO PRN (03:00)
[2022-09-11] MEDS ORDERED: ACETAMINOPHEN 325MG TABLET PO PRN (03:00)
[2022-09-11] MEDS ORDERED: DEXTROSE 50% WATER 50ML SYRINGE IV PRN (03:00)
[2022-09-11 03:42] VITALS: BP 142/89
[2022-09-11] MEDS: GABAPENTIN 300MG CAPSULE PO SCH ×3 (06:13→21:52)
[2022-09-11] MEDS: HYDRALAZINE HCL 100MG TABLET PO SCH ×3 (06:14→21:52)
[2022-09-11] MEDS: HYDROCODONE/ACETAMINOPHEN 10/325MG TABLET PO PRN ×2 (06:14→10:32)
[2022-09-11] MEDS: BLOOD SUGAR DIAGNOSTIC STRIP TEST SCH ×4 (06:20→20:52)
[2022-09-11] MEDS: INSULIN LISPRO 100 UNITS/ML SUBCUT SCH ×4 (07:27→20:52)
[2022-09-11] MEDS ORDERED: BLOOD SUGAR DIAGNOSTIC STRIP TEST SCH (07:40)
[2022-09-11 08:00] VITALS: BP 149/83
[2022-09-11] MEDS ORDERED: FUROSEMIDE 40MG/4 ML UDC PO SCH (09:00)
[2022-09-11] MEDS: ENOXAPARIN 30MG/0.3ML SYR SUBCUT SCH ×2 (10:32→20:51)
[2022-09-11] MEDS: AMLODIPINE 10MG TABLET PO SCH (10:32)
[2022-09-11] MEDS: LOSARTAN POTASSIUM 50 MG TABLET PO SCH ×2 (10:33→16:53)
[2022-09-11] MEDS ORDERED: NALOXONE HCL 0.4MG/ML VIAL IV PRN (10:45)
[2022-09-11] MEDS: INSULIN GLARGINE 100 UNITS/ML SUBCUT SCH ×2 (10:51→21:53)
[2022-09-11] MEDS: FUROSEMIDE 40MG TABLET PO SCH ×2 (10:53→16:54)
[2022-09-11 12:00] VITALS: BP 147/79
[2022-09-11] MEDS ORDERED: AZITHROMYCIN 500MG in DEXTROSE 5% WATER 250ML IV SCH (14:00)
[2022-09-11] MEDS ORDERED: IPRATROPIUM/ALBUTEROL 0.5-3(2.5)MG/3ML NEB HHN PRN (14:15)
[2022-09-11] MEDS ORDERED: LACTULOSE 20G/30ML UDC PO NR (15:30)
[2022-09-11 16:00] VITALS: BP 141/87
[2022-09-11] MEDS ORDERED: CEFTRIAXONE 500 MG in DEXTROSE 5% WATER 50 ML IV SCH (19:00)
[2022-09-11 20:00] VITALS: BP 140/76
[2022-09-11] MEDS ORDERED: CEFTRIAXONE 1,000 MG in DEXTROSE 5% WATER 50 ML IV SCH (20:00)
[2022-09-11] MEDS ORDERED: AZITHROMYCIN 500MG/250ML 250 ML IV SCH (20:00)
[2022-09-11] MEDS: TRAZODONE HCL 50MG TABLET PO SCH (20:51)
[2022-09-11] MEDS ORDERED: BISACODYL 5MG TABLET PO PRN (21:15)
[2022-09-11] MEDS ORDERED: LACTULOSE 20G/30ML UDC PO PRN (21:15)
[2022-09-11 23:58] VITALS: BP 115/61
[2022-09-12] MEDS ORDERED: TRAMADOL 50MG TABLET PO PRN (00:15)
[2022-09-12] MEDS: HYDROCODONE/ACETAMINOPHEN 10/325MG TABLET PO PRN ×4 (00:33→21:34)
[2022-09-12 04:00] VITALS: BP 135/70
[2022-09-12] MEDS: GABAPENTIN 300MG CAPSULE PO SCH ×3 (05:28→21:33)
[2022-09-12] MEDS: HYDRALAZINE HCL 100MG TABLET PO SCH ×3 (05:29→21:33)
[2022-09-12] MEDS: FUROSEMIDE 40MG TABLET PO SCH ×2 (05:29→16:49)
[2022-09-12] MEDS: INSULIN LISPRO 100 UNITS/ML SUBCUT SCH ×4 (05:59→21:00)
[2022-09-12] MEDS: BLOOD SUGAR DIAGNOSTIC STRIP TEST SCH ×4 (05:59→21:24)
[2022-09-12 08:00] VITALS: BP 136/90
[2022-09-12] MEDS: AMLODIPINE 10MG TABLET PO SCH (09:44)
[2022-09-12] MEDS: DOCUSATE SODIUM 100MG CAPSULE PO SCH ×2 (09:44→16:48)
[2022-09-12] MEDS: ENOXAPARIN 30MG/0.3ML SYR SUBCUT SCH ×2 (09:45→21:34)
[2022-09-12] MEDS: LOSARTAN POTASSIUM 50 MG TABLET PO SCH ×2 (09:45→16:49)
[2022-09-12] MEDS: INSULIN GLARGINE 100 UNITS/ML SUBCUT SCH ×2 (10:19→21:35)
[2022-09-12 12:00] VITALS: BP 126/85
[2022-09-12] MEDS ORDERED: CYCLOBENZAPRINE 10MG TABLET PO PRN (13:00)
[2022-09-12] MEDS ORDERED: SUMATRIPTAN SUCCINATE 6MG/0.5ML VIAL SUBCUT NR (14:00)
[2022-09-12 16:00] VITALS: BP 161/71
[2022-09-12 20:00] VITALS: BP 136/78
[2022-09-12] MEDS: TRAZODONE HCL 50MG TABLET PO SCH (21:34)
[2022-09-13] VITALS: BP 146/93
[2022-09-13 00:47] LABS: CLARITY URINE HAZY (CLEAR); COLOR URINE YELLOW (YELLOW); PROTEIN URINE TRACE (NEGATIVE); SPECIFIC GRAVITY URINE 1.015 (1.005-1.030)
[2022-09-13 00:48] LABS: KETONES URINE NEGATIVE (NEGATIVE); LEUKOCYTE ESTERASE URINE NEGATIVE (NEGATIVE); NITRITE URINE NEGATIVE (NEGATIVE); OCCULT BLOOD URINE NEGATIVE (NEGATIVE); UROBILINOGEN URINE 0.2 E.U./dL (0.2-1.0)
[2022-09-13 01:01] LABS: *AMPHETAMINES SCREEN URINE NEGATIVE (NEGATIVE); *BARBITURATES SCREEN URINE NEGATIVE (NEGATIVE); *BENZODIAZEPINES SCREEN URINE NEGATIVE (NEGATIVE); *COCAINE SCREEN URINE NEGATIVE (NEGATIVE); CANNABINOID URINE SCREEN NEGATIVE (NEGATIVE); METHADONE URINE SCREEN NEGATIVE (NEGATIVE); OPIATES URINE SCREEN PRESUMTIVE POSITIVE (NEGATIVE); PHENCYCLIDINE URINE SCREEN NEGATIVE (NEGATIVE)
[2022-09-13] MEDS: HYDROCODONE/ACETAMINOPHEN 10/325MG TABLET PO PRN ×3 (02:29→19:39)
[2022-09-13 04:00] VITALS: BP 146/83
[2022-09-13] MEDS: GABAPENTIN 300MG CAPSULE PO SCH ×3 (05:58→20:26)
[2022-09-13] MEDS: HYDRALAZINE HCL 100MG TABLET PO SCH ×3 (05:59→20:27)
[2022-09-13] MEDS: BLOOD SUGAR DIAGNOSTIC STRIP TEST SCH ×4 (07:28→20:39)
[2022-09-13 08:00] VITALS: BP 125/83
[2022-09-13] MEDS: INSULIN LISPRO 100 UNITS/ML SUBCUT SCH ×4 (08:10→20:40)
[2022-09-13] MEDS: FUROSEMIDE 40MG TABLET PO SCH ×2 (08:28→17:39)
[2022-09-13] MEDS: DOCUSATE SODIUM 100MG CAPSULE PO SCH ×2 (09:20→17:39)
[2022-09-13] MEDS: ENOXAPARIN 30MG/0.3ML SYR SUBCUT SCH ×2 (09:20→20:26)
[2022-09-13] MEDS: LOSARTAN POTASSIUM 50 MG TABLET PO SCH ×2 (09:22→17:39)
[2022-09-13] MEDS: AMLODIPINE 10MG TABLET PO SCH (09:22)
[2022-09-13] MEDS: INSULIN GLARGINE 100 UNITS/ML SUBCUT SCH (10:44)
[2022-09-13] MEDS: KETOROLAC 15MG/ML VIAL IV PRN ×2 (13:33→19:39)
[2022-09-13 16:00] VITALS: BP 126/75
[2022-09-13] MEDS ORDERED: ZOLPIDEM TARTRATE 5MG TABLET PO PRN (19:15)
[2022-09-13 19:39] VITALS: BP 126/75
[2022-09-13] MEDS: TRAZODONE HCL 50MG TABLET PO SCH (20:26)
[2022-09-22] MEDS ORDERED: LANTUSUD SUBCUT (16:40)
[2022-09-22] MEDS ORDERED: TRAZ-251 PO (16:40)
[2022-09-22] MEDS ORDERED: DOCU-150 PO (16:40)
[2022-09-22] MEDS ORDERED: LOSA50TA3 PO (16:40)
[2022-09-22] MEDS ORDERED: FURO40TA5 PO (16:40)
[2022-09-22] MEDS ORDERED: GABA-532 PO (16:40)
[2022-09-22] MEDS ORDERED: OXYC1TAB12 MT (16:40)
[2022-09-22] MEDS ORDERED: HYDR100T26 PO (16:40)
[2022-09-22] MEDS ORDERED: METH-773 PO (16:40)
[2022-09-22] MEDS ORDERED: AMLO10TA80 PO (16:40)
[2022-09-22] MEDS ORDERED: INSLIS SUBCUT (16:40)
== END 2022-09-13 20:50 | DRG 73 ==
LOC: ER 14:52 → MICUSO 20:07 → 7WST 09-11 02:22
PROVIDERS: ADMIT Internal Medicine; ATTEND Internal Medicine
DX: G90.8 Other disorders of autonomic nervous system (principal); I50.33 Acute on chronic diastolic (congestive) heart failure; E11.9 Type 2 diabetes mellitus without complications; I11.0 Hypertensive heart disease with heart failure; E66.01 Morbid (severe) obesity due to excess calories; G89.29 Other chronic pain; G43.909 Migraine, unspecified, not intractable, without status migrainosus; M48.00 Spinal stenosis, site unspecified; G47.33 Obstructive sleep apnea (adult) (pediatric); J44.9 Chronic obstructive pulmonary disease, unspecified; M54.17 Radiculopathy, lumbosacral region; M54.30 Sciatica, unspecified side; M47.819 Spondylosis without myelopathy or radiculopathy, site unspecified; F12.90 Cannabis use, unspecified, uncomplicated; Z96.651 Presence of right artificial knee joint; Z98.891 History of uterine scar from previous surgery; Z68.35 Body mass index [BMI] 35.0-35.9, adult; Z87.891 Personal history of nicotine dependence; Z79.899 Other long term (current) drug therapy; Z99.81 Dependence on supplemental oxygen
CPT/HCPCS: 36415; 71045; 80053; 80305; 81003; 82140; 82962; 83036; 83880; 84443; 84484; 85025; 93005; 97162; 97166; 99285; A6261; J0456; J0610; J0696; J1250; J1650; J1815; J1885; J1940; J2270; J3030; J7060

== ENCOUNTER 2023-04-04 11:57 | Inpatient (IN) | payer MEDICARE, MEDICAID ==
[~2023-04-04] VITALS: Ht 170.2 cm; Wt 129.3 kg
[~2023-04-04 11:57] MED LIST changes: -AMLO10TA80 MT; +AMLO10TA80 PO; -CARV3.1242 PO; -CLON0.3T PO; -DAPA10TA PO; +DOCU-150 PO; -HYDR-4009 PO; -HYDR100T26 MT; +HYDR100T26 PO; -INSU100I28 SQ; -IPRA4AER INH; +LANTUSUD SUBCUT; -LIDO30CR46 TP; -LIP40 MT; +LOSA-413 PO; -LOSA50TA41 PO; +METH-773 PO; -NITR0.4T49 SL; -P50 MT; -PREG100C MT; -TIZA4CAP6 PO; -UMEC1DIS IH
[2023-04-04] MEDS ORDERED: IPRATROPIUM/ALBUTEROL 0.5-3(2.5)MG/3ML NEB HHN STA (12:20)
[2023-04-04] MEDS ORDERED: DEXAMETHASONE 10 MG/ML VIAL IV ONE (12:30)
[2023-04-04] MEDS ORDERED: NITROGLYCERIN 0.4MG TABLET SL SL ONE (13:30)
[2023-04-04 13:31] LABS: BASOPHILS % 0.5 % (0.0-2.0); HEMOGLOBIN. 12.4 g/dL (12.0-16.0); LYMPHOCYTES % 8.5 % (20.0-50.0); MEAN CORPUSCULAR HEMOGLOBIN 27.1 pg (28.0-32.0); MEAN CORPUSCULAR VOLUME 81.1 fL (81.0-99.0); MEAN PLATELET VOLUME 8.1 fl (7.4-10.4); MONOCYTES % 4.1 % (2.0-8.0); NEUTROPHILS % 86.9 % (40.0-76.0); PLATELET 383 x1000/uL (130-400); RED BLOOD CELL COUNT 4.56 mill/uL (4.2-5.4); RED CELL DISTRIBUTION WIDTH 17.2 % (11.6-14.6)
[2023-04-04 13:33] LABS: BG CARBOXYHEMOGLOBIN 0.9 % (0.5-1.5); BG DEOXYHEMOGLOBIN 3.4 % (0.0-5.0); BG FRACTION INSPIRED OXYGEN 32; BG HCO3 ACT 23.3 mmol/L (22.0-26.0); BG METHEMOGLOBIN 0.1 % (0.0-1.5); BG OXYGEN SATURATION 96.6 % (92.0-98.5); BG OXYHEMOGLOBIN 95.6 % (94.0-97.0); BG PCO2 33.7 mmHg (35.0-45.0); BG PH 7.457 (7.350-7.450); BG SAMPLE SITE RIGHT RADIAL; BG TOTAL HEMOGLOBIN 13.4 g/dL (12.0-18.0); BG VENT MODE NASAL CANNULA
[2023-04-04 13:54] LABS: CHLORIDE 107 mEq/L (98-107)
[2023-04-04] MEDS ORDERED: CEFTRIAXONE 1GM PREMIX 50 ML IV SCH (14:15)
[2023-04-04] MEDS ORDERED: MORPHINE SULFATE 2 MG/ML CPJ (NOT FOR IM USE) IV SCH (14:15)
[2023-04-04] MEDS ORDERED: HYDRALAZINE HCL 100MG TABLET PO ONE (16:45)
[2023-04-04] MEDS ORDERED: CLONIDINE 0.3MG TABLET PO ONE (16:45)
[2023-04-04] MEDS ORDERED: IOHEXOL-350 100 ML BOTTLE ONE (18:09)
[2023-04-04] MEDS ORDERED: MORPHINE SULFATE 4 MG/ML CPJ (NOT FOR IM USE) IV ONE (18:45)
[2023-04-04 21:00] VITALS: BP 153/70
[2023-04-04] MEDS ORDERED: DEXTROSE 50% WATER 50ML SYRINGE IV PRN (22:15)
[2023-04-04] MEDS ORDERED: NITROGLYCERIN 0.4MG TABLET SL SL PRN (22:15)
[2023-04-04] MEDS ORDERED: IPRATROPIUM/ALBUTEROL 0.5-3(2.5)MG/3ML NEB HHN PRN (22:15)
[2023-04-04] MEDS: HYDROCODONE/ACETAMINOPHEN 10/325MG TABLET PO PRN (22:49)
[2023-04-04] MEDS: TIZANIDINE HCL 2MG TABLET PO PRN (23:47)
[2023-04-05] VITALS: BP 154/78
[2023-04-05] MEDS ORDERED: HYDR50TA54 PO (00:59)
[2023-04-05] MEDS ORDERED: ALBU18HF2 IH (00:59)
[2023-04-05] MEDS ORDERED: WARFARIN PO (00:59)
[2023-04-05] MEDS ORDERED: CHOL-36 PO (00:59)
[2023-04-05] MEDS ORDERED: IBUP-2030 PO (00:59)
[2023-04-05] MEDS ORDERED: DAPA10TA PO (00:59)
[2023-04-05] MEDS ORDERED: UMEC1DIS IH (00:59)
[2023-04-05] MEDS ORDERED: TIZA-204 PO (00:59)
[2023-04-05] MEDS ORDERED: FURO40TA5 PO (01:02)
[2023-04-05] MEDS ORDERED: PREG100C PO (01:02)
[2023-04-05] MEDS ORDERED: HYDR-4009 MT (01:02)
[2023-04-05 05:00] VITALS: BP 139/56
[2023-04-05 06:37] LABS: HEMATOCRIT 36.6 % (36.0-48.0); HEMOGLOBIN 11.9 g/dL (12.0-16.0); MEAN CORPUSCULAR HEMOGLOBIN 26.6 pg (28.0-32.0); MEAN CORPUSCULAR VOLUME 81.6 fL (81.0-99.0); PLATELET 370 x1000/uL (130-400); RED BLOOD CELL COUNT 4.48 mill/uL (4.2-5.4); RED CELL DISTRIBUTION WIDTH 16.8 % (11.6-14.6)
[2023-04-05] MEDS: BLOOD SUGAR DIAGNOSTIC STRIP TEST SCH ×4 (06:46→20:45)
[2023-04-05] MEDS: GABAPENTIN 300MG CAPSULE PO SCH ×3 (06:46→20:42)
[2023-04-05] MEDS: HYDRALAZINE HCL 100MG TABLET PO SCH ×3 (06:46→20:43)
[2023-04-05 07:12] LABS: CHLORIDE 111 mEq/L (98-107)
[2023-04-05 07:18] LABS: HDL CHOLESTEROL 63 mg/dL (40-59); LDL CHOLESTEROL 85 mg/dL (5-100)
[2023-04-05] MEDS: INSULIN LISPRO 100 UNITS/ML SUBCUT SCH ×4 (07:46→20:45)
[2023-04-05 07:58] VITALS: BP 149/61
[2023-04-05] MEDS: APIXABAN 5 MG TABLET PO SCH ×2 (09:00→09:46)
[2023-04-05] MEDS: FUROSEMIDE 40MG/4ML VIAL IVP SCH (09:46)
[2023-04-05] MEDS: HYDROCODONE/ACETAMINOPHEN 10/325MG TABLET PO PRN ×2 (09:47→22:23)
[2023-04-05] MEDS: LOSARTAN POTASSIUM 50 MG TABLET PO SCH ×2 (09:47→20:44)
[2023-04-05] MEDS: PREGABALIN 50 MG CAPSULE PO SCH ×2 (09:48→20:42)
[2023-04-05] MEDS: CARVEDILOL 3.125 MG TABLET PO SCH ×2 (09:48→20:44)
[2023-04-05] MEDS: INSULIN GLARGINE 100 UNITS/ML SUBCUT SCH ×2 (09:50→20:49)
[2023-04-05 11:41] LABS: HEPATITIS B SURFACE ANTIGEN NEGATIVE
[2023-04-05 11:50] VITALS: BP 146/70
[2023-04-05] MEDS ORDERED: METHYLPREDNISOLONE SOD SUCC 40 MG/ML (ACT-O-VIAL) IV SCH (12:45)
[2023-04-05] MEDS: CEFTRIAXONE 1,000 MG in DEXTROSE 5% WATER 50 ML IV SCH (13:00)
[2023-04-05] MEDS ORDERED: MORPHINE SULFATE 4 MG/ML CPJ (NOT FOR IM USE) IV PRN (15:00)
[2023-04-05 15:03] LABS: CLARITY URINE CLEAR (CLEAR); COLOR URINE YELLOW (YELLOW); KETONES URINE NEGATIVE (NEGATIVE); LEUKOCYTE ESTERASE URINE NEGATIVE (NEGATIVE); NITRITE URINE NEGATIVE (NEGATIVE); OCCULT BLOOD URINE NEGATIVE (NEGATIVE); PH URINE 6.5 (4.5-8.0); PROTEIN URINE NEGATIVE (NEGATIVE); SPECIFIC GRAVITY URINE 1.008 (1.005-1.030); UROBILINOGEN URINE 0.2 E.U./dL (0.2-1.0)
[2023-04-05] MEDS ORDERED: NALOXONE HCL 0.4MG/ML VIAL IV PRN (15:15)
[2023-04-05 16:00] VITALS: BP 144/59
[2023-04-05] MEDS ORDERED: AZITHROMYCIN 500 MG TABLET PO NR (17:26)
[2023-04-05 17:55] LABS: INR 1.3; PROTHROMBIN TIME 13.6 sec (9.6-11.0)
[2023-04-05 18:04] LABS: CREATINE KINASE MB FRACTION 3.1 ng/mL (0.5-3.6)
[2023-04-05] MEDS ORDERED: WARFARIN SODIUM 1MG TABLET PO SCH (19:00)
[2023-04-05] MEDS ORDERED: WARFARIN SODIUM 3MG TABLET PO SCH (19:00)
[2023-04-05 20:00] VITALS: BP 155/69
[2023-04-05] MEDS: ATORVASTATIN CALCIUM 40MG TABLET PO SCH (20:43)
[2023-04-05] MEDS: FAMOTIDINE 20MG TABLET PO SCH (20:44)
[2023-04-05] MEDS ORDERED: HYDROCODONE/ACETAMINOPHEN 5/325MG TABLET PO PRN (22:15)
[2023-04-05] MEDS: TIZANIDINE HCL 2MG TABLET PO PRN (22:22)
[2023-04-06 04:00] VITALS: BP 156/78
[2023-04-06] MEDS: GABAPENTIN 300MG CAPSULE PO SCH ×3 (06:37→22:33)
[2023-04-06] MEDS: BLOOD SUGAR DIAGNOSTIC STRIP TEST SCH ×4 (06:37→21:00)
[2023-04-06] MEDS: HYDRALAZINE HCL 100MG TABLET PO SCH ×3 (06:37→22:00)
[2023-04-06 08:00] VITALS: BP 161/65
[2023-04-06] MEDS: INSULIN LISPRO 100 UNITS/ML SUBCUT SCH ×4 (08:04→21:00)
[2023-04-06] MEDS: IPRATROPIUM/ALBUTEROL 0.5-3(2.5)MG/3ML NEB HHN SCH ×2 (09:11→17:01)
[2023-04-06 09:19] LABS: INR 1.2; PROTHROMBIN TIME 12.9 sec (9.6-11.0)
[2023-04-06 09:20] LABS: CREATINE KINASE MB FRACTION 2.5 ng/mL (0.5-3.6)
[2023-04-06] MEDS: PREGABALIN 50 MG CAPSULE PO SCH ×2 (09:56→22:34)
[2023-04-06] MEDS: FUROSEMIDE 40MG/4ML VIAL IVP SCH (09:57)
[2023-04-06] MEDS: AZITHROMYCIN 250 MG TABLET PO SCH (09:57)
[2023-04-06] MEDS: LOSARTAN POTASSIUM 50 MG TABLET PO SCH ×2 (09:57→22:35)
[2023-04-06] MEDS: HYDROCODONE/ACETAMINOPHEN 10/325MG TABLET PO PRN ×3 (09:57→18:27)
[2023-04-06] MEDS: CARVEDILOL 3.125 MG TABLET PO SCH ×2 (09:57→21:00)
[2023-04-06] MEDS: INSULIN GLARGINE 100 UNITS/ML SUBCUT SCH ×2 (10:00→22:00)
[2023-04-06] MEDS: DOCUSATE SODIUM 250MG CAPSULE PO SCH (11:16)
[2023-04-06 12:00] VITALS: BP 164/85
[2023-04-06] MEDS: CEFTRIAXONE 1,000 MG in DEXTROSE 5% WATER 50 ML IV SCH (12:55)
[2023-04-06 17:00] VITALS: BP 172/77
[2023-04-06] MEDS: TIZANIDINE HCL 2MG TABLET PO PRN (17:27)
[2023-04-06] MEDS ORDERED: CLON-457 PO (17:56)
[2023-04-06] MEDS ORDERED: CLON0.3T PO (17:57)
[2023-04-06] MEDS ORDERED: WARFARIN SODIUM 10MG TABLET PO NR (18:00)
[2023-04-06] MEDS ORDERED: WARFARIN SODIUM 7.5MG TABLET PO NR (18:00)
[2023-04-06] MEDS ORDERED: WARFARIN SODIUM 1MG TABLET PO NR (18:00)
[2023-04-06] MEDS ORDERED: INSU100I28 SQ (18:01)
[2023-04-06] MEDS ORDERED: INSU100V37 SQ (18:04)
[2023-04-06] MEDS ORDERED: HYDR-4009 MT (18:06)
[2023-04-06] MEDS ORDERED: DULA1.5P SQ (18:10)
[2023-04-06] MEDS ORDERED: IPRA4AER INH (18:10)
[2023-04-06] MEDS: CLONIDINE 0.2MG TABLET PO SCH (18:27)
[2023-04-06 20:00] VITALS: BP 109/55
[2023-04-06] MEDS: ATORVASTATIN CALCIUM 40MG TABLET PO SCH ×2 (22:34→22:52)
[2023-04-06] MEDS: FAMOTIDINE 20MG TABLET PO SCH ×2 (22:35→22:53)
[2023-04-07] VITALS: BP 154/87
[2023-04-07] MEDS: IPRATROPIUM/ALBUTEROL 0.5-3(2.5)MG/3ML NEB HHN SCH ×3 (00:51→14:16)
[2023-04-07 04:00] VITALS: BP 130/64
[2023-04-07] MEDS: GABAPENTIN 300MG CAPSULE PO SCH ×3 (05:47→21:38)
[2023-04-07] MEDS: HYDRALAZINE HCL 100MG TABLET PO SCH ×3 (05:47→21:36)
[2023-04-07 06:50] LABS: BASOPHILS % 0.5 % (0.0-2.0); EOSINOPHILS % 0.7 % (0.0-5.0); HEMATOCRIT. 42.1 % (36.0-48.0); HEMOGLOBIN. 13.5 g/dL (12.0-16.0); LYMPHOCYTES % 35.3 % (20.0-50.0); MEAN CORPUSCULAR HEMOGLOBIN 26.4 pg (28.0-32.0); MEAN CORPUSCULAR VOLUME 82.3 fL (81.0-99.0); MEAN PLATELET VOLUME 8.3 fl (7.4-10.4); MONOCYTES % 11.6 % (2.0-8.0); NEUTROPHILS % 51.9 % (40.0-76.0); PLATELET 447 x1000/uL (130-400); RED BLOOD CELL COUNT 5.12 mill/uL (4.2-5.4); RED CELL DISTRIBUTION WIDTH 16.5 % (11.6-14.6)
[2023-04-07 06:56] LABS: CHLORIDE 108 mEq/L (98-107)
[2023-04-07 06:58] LABS: INR 1.2; PROTHROMBIN TIME 12.4 sec (9.6-11.0)
[2023-04-07 08:00] VITALS: BP 156/90
[2023-04-07] MEDS: BLOOD SUGAR DIAGNOSTIC STRIP TEST SCH ×4 (08:10→21:36)
[2023-04-07] MEDS: INSULIN LISPRO 100 UNITS/ML SUBCUT SCH ×4 (08:10→21:00)
[2023-04-07] MEDS: HYDROCODONE/ACETAMINOPHEN 10/325MG TABLET PO PRN ×2 (10:25→17:47)
[2023-04-07] MEDS: DOCUSATE SODIUM 250MG CAPSULE PO SCH (10:26)
[2023-04-07] MEDS: LOSARTAN POTASSIUM 50 MG TABLET PO SCH ×2 (10:26→21:38)
[2023-04-07] MEDS: PREGABALIN 50 MG CAPSULE PO SCH ×2 (10:26→21:38)
[2023-04-07] MEDS: AZITHROMYCIN 250 MG TABLET PO SCH (10:26)
[2023-04-07] MEDS: FUROSEMIDE 40MG/4ML VIAL IVP SCH (10:27)
[2023-04-07] MEDS: CLONIDINE 0.2MG TABLET PO SCH ×2 (10:27→17:44)
[2023-04-07] MEDS: CARVEDILOL 3.125 MG TABLET PO SCH ×2 (10:27→21:00)
[2023-04-07] MEDS: INSULIN GLARGINE 100 UNITS/ML SUBCUT SCH ×3 (10:30→22:16)
[2023-04-07] MEDS: TIZANIDINE HCL 2MG TABLET PO PRN ×2 (10:32→22:16)
[2023-04-07 12:00] VITALS: BP 138/93
[2023-04-07] MEDS: CEFTRIAXONE 1,000 MG in DEXTROSE 5% WATER 50 ML IV SCH (13:18)
[2023-04-07] MEDS ORDERED: WARFARIN SODIUM 10MG TABLET PO ONE (13:45)
[2023-04-07 16:00] VITALS: BP 137/90
[2023-04-07] MEDS ORDERED: WARFARIN SODIUM 10MG TABLET PO NR (18:00)
[2023-04-07 20:00] VITALS: BP 110/53
[2023-04-08] VITALS (7 sets, daily range): BP systolic 107–153; BP diastolic 55–90
[2023-04-08] MEDS: IPRATROPIUM/ALBUTEROL 0.5-3(2.5)MG/3ML NEB HHN SCH ×3 (02:55→15:12)
[2023-04-08] MEDS: GABAPENTIN 300MG CAPSULE PO SCH ×3 (05:44→21:13)
[2023-04-08] MEDS: HYDRALAZINE HCL 100MG TABLET PO SCH ×3 (05:44→21:14)
[2023-04-08] MEDS: BLOOD SUGAR DIAGNOSTIC STRIP TEST SCH ×4 (05:45→21:32)
[2023-04-08] MEDS: INSULIN LISPRO 100 UNITS/ML SUBCUT SCH ×4 (05:45→21:00)
[2023-04-08 07:13] LABS: INR 1.2; PROTHROMBIN TIME 12.6 sec (9.6-11.0)
[2023-04-08] MEDS: CARVEDILOL 3.125 MG TABLET PO SCH ×2 (09:25→21:11)
[2023-04-08] MEDS: PREGABALIN 50 MG CAPSULE PO SCH ×2 (09:25→21:43)
[2023-04-08] MEDS: LOSARTAN POTASSIUM 50 MG TABLET PO SCH ×2 (09:25→21:12)
[2023-04-08] MEDS: AZITHROMYCIN 250 MG TABLET PO SCH (09:25)
[2023-04-08] MEDS: CLONIDINE 0.2MG TABLET PO SCH ×2 (09:25→18:07)
[2023-04-08] MEDS: FUROSEMIDE 40MG/4ML VIAL IVP SCH (09:26)
[2023-04-08] MEDS: DOCUSATE SODIUM 250MG CAPSULE PO SCH (09:26)
[2023-04-08] MEDS: INSULIN GLARGINE 100 UNITS/ML SUBCUT SCH ×2 (09:36→21:48)
[2023-04-08] MEDS: HYDROCODONE/ACETAMINOPHEN 10/325MG TABLET PO PRN ×3 (10:03→21:43)
[2023-04-08 12:31] LABS: BASOPHILS % 0.7 % (0.0-2.0); EOSINOPHILS % 1.1 % (0.0-5.0); HEMATOCRIT. 43.9 % (36.0-48.0); HEMOGLOBIN. 14.5 g/dL (12.0-16.0); LYMPHOCYTES % 36.4 % (20.0-50.0); MEAN CORPUSCULAR VOLUME 81.9 fL (81.0-99.0); MEAN PLATELET VOLUME 8.1 fl (7.4-10.4); MONOCYTES % 11.1 % (2.0-8.0); NEUTROPHILS % 50.7 % (40.0-76.0); PLATELET 484 x1000/uL (130-400); RED BLOOD CELL COUNT 5.36 mill/uL (4.2-5.4); RED CELL DISTRIBUTION WIDTH 16.6 % (11.6-14.6)
[2023-04-08 12:34] LABS: CHLORIDE 107 mEq/L (98-107)
[2023-04-08] MEDS: CEFTRIAXONE 1,000 MG in DEXTROSE 5% WATER 50 ML IV SCH (14:14)
[2023-04-08] MEDS: ENOXAPARIN 60MG/0.6ML SYR SUBCUT SCH ×2 (14:18→21:00)
[2023-04-08] MEDS: TIZANIDINE HCL 2MG TABLET PO PRN (14:26)
[2023-04-08] MEDS ORDERED: WARFARIN SODIUM 10MG TABLET PO SCH (18:00)
[2023-04-08] MEDS: ATORVASTATIN CALCIUM 40MG TABLET PO SCH (21:00)
[2023-04-08] MEDS: FAMOTIDINE 20MG TABLET PO SCH (21:11)
[2023-04-09] VITALS: BP 137/82
[2023-04-09] MEDS: IPRATROPIUM/ALBUTEROL 0.5-3(2.5)MG/3ML NEB HHN SCH ×3 (00:58→15:45)
[2023-04-09 04:00] VITALS: BP 146/82
[2023-04-09] MEDS: HYDRALAZINE HCL 100MG TABLET PO SCH ×2 (05:48→14:00)
[2023-04-09] MEDS: GABAPENTIN 300MG CAPSULE PO SCH ×2 (05:48→14:00)
[2023-04-09] MEDS: BLOOD SUGAR DIAGNOSTIC STRIP TEST SCH ×2 (07:20→12:20)
[2023-04-09] MEDS: INSULIN LISPRO 100 UNITS/ML SUBCUT SCH ×2 (07:27→12:50)
[2023-04-09 08:00] VITALS: BP 132/61
[2023-04-09 08:00] LABS: INR 1.1
[2023-04-09] MEDS: CARVEDILOL 3.125 MG TABLET PO SCH (09:00)
[2023-04-09] MEDS: CLONIDINE 0.2MG TABLET PO SCH (09:00)
[2023-04-09] MEDS: PREGABALIN 50 MG CAPSULE PO SCH (09:00)
[2023-04-09] MEDS: ENOXAPARIN 60MG/0.6ML SYR SUBCUT SCH (09:00)
[2023-04-09] MEDS: LOSARTAN POTASSIUM 50 MG TABLET PO SCH (09:00)
[2023-04-09] MEDS: FUROSEMIDE 40MG/4ML VIAL IVP SCH (09:00)
[2023-04-09] MEDS: DOCUSATE SODIUM 250MG CAPSULE PO SCH (09:00)
[2023-04-09] MEDS: AZITHROMYCIN 250 MG TABLET PO SCH (09:00)
[2023-04-09] MEDS: INSULIN GLARGINE 100 UNITS/ML SUBCUT SCH (10:00)
[2023-04-09 12:00] VITALS: BP 127/75
[2023-04-09 16:00] VITALS: BP 127/75
[2023-04-09] MEDS ORDERED: WARFARIN SODIUM 10MG TABLET PO SCH (18:00)
== END 2023-04-09 16:05 | disposition home or self-care (01) | DRG 871 ==
LOC: ER 11:57 → 7WST 16:56 → 6EST 04-07 23:48
PROVIDERS: ADMIT Internal Medicine; ATTEND Internal Medicine
DX: A41.9 Sepsis, unspecified organism (principal); I50.33 Acute on chronic diastolic (congestive) heart failure; J18.9 Pneumonia, unspecified organism; J96.01 Acute respiratory failure with hypoxia; J44.1 Chronic obstructive pulmonary disease with (acute) exacerbation; I82.402 Acute embolism and thrombosis of unspecified deep veins of left lower extremity; J44.0 Chronic obstructive pulmonary disease with (acute) lower respiratory infection; Z68.42 Body mass index [BMI] 45.0-49.9, adult; I16.0 Hypertensive urgency; E11.65 Type 2 diabetes mellitus with hyperglycemia; E66.01 Morbid (severe) obesity due to excess calories; E78.5 Hyperlipidemia, unspecified; G47.33 Obstructive sleep apnea (adult) (pediatric); I11.0 Hypertensive heart disease with heart failure; I49.3 Ventricular premature depolarization; Z96.653 Presence of artificial knee joint, bilateral; Z79.01 Long term (current) use of anticoagulants; Z79.4 Long term (current) use of insulin; Z79.899 Other long term (current) drug therapy; Z86.718 Personal history of other venous thrombosis and embolism; Z98.891 History of uterine scar from previous surgery
CPT/HCPCS: 36415; 36600; 71045; 71275; 80048; 80053; 80061; 81003; 82375; 82550; 82553; 82805; 82962; 83036; 83880; 84145; 84484; 85025; 85027; 86803; 87340; 93005; 93306; 93923; 93970; 94640; 97162; 97530; 99285; J0696; J1100; J1650; J1815; J1940; J2270; J2920; J7060; Q9967

== ENCOUNTER 2023-07-08 22:38 | Inpatient (IN) | payer MEDICARE, MEDICAID ==
[~2023-07-08] VITALS: Ht 162.6 cm; Wt 128.4 kg
[~2023-07-08 22:38] MED LIST changes: +ALBU18HF2 IH; -AMLO10TA80 PO; +CHOL-36 PO; +CLIN-194 MT; +CLON0.3T PO; +DAPA10TA PO; -DOCU-150 PO; +DULA1.5P SQ; +HYDR-4009 MT; +HYDR50TA54 PO; +IBUP-2030 PO; -INSLIS SUBCUT; +INSU100I28 SQ; +INSU100V37 SQ; +IPRA4AER INH; -LANTUSUD SUBCUT; -METH-773 PO; +PREG100C PO; +TIZA-204 PO; -TRAZ-251 PO; +UMEC1DIS IH; +WARFARIN PO
[2023-07-08 23:13] LABS: CHLORIDE 106 mEq/L (98-107); INDEX HEMOLYSI 1 (1-3); INDEX ICTERIC 1 (1-4); INDEX LIPEMIC 1 (1-3); POTASSIUM 3.6 mEq/L (3.5-5.1); SODIUM 138 mEq/L (136-145)
[2023-07-08 23:23] LABS: ALANINE AMINOTRANSFERASE 28 IU/L (13-61); ALBUMIN 3.7 g/dL (3.4-5.0); ASPARTATE AMINOTRANSFERASE 20 IU/L (15-37); BILIRUBIN TOTAL 0.2 mg/dL (0.1-1.0); CARBON DIOXIDE 27 mEq/L (21-32); CREATININE 0.9 mg/dL (0.6-1.3); ETHANOL BLOOD < 10 mg/dL (-10); GLUCOSE 159 mg/dL (70-105); NT PRO B-TYPE NATRIURETIC PEP 71 pg/mL (5-125); PROTEIN TOTAL 8.5 g/dL (6.0-8.3); TROPONIN I HIGH SENSITIVITY 10 ng/L (<54); UREA NITROGEN BLOOD 17 mg/dL (7-21)
[2023-07-08 23:28] LABS: BASOPHILS % 0.3 % (0.0-2.0); HEMATOCRIT. 39.8 % (36.0-48.0); HEMOGLOBIN. 12.7 g/dL (12.0-16.0); LYMPHOCYTES % 22.3 % (20.0-50.0); MEAN CORPUSCULAR VOLUME 84.2 fL (81.0-99.0); MEAN PLATELET VOLUME 8.5 fl (7.4-10.4); MONOCYTES % 5.9 % (2.0-8.0); NEUTROPHILS % 71.5 % (40.0-76.0); PLATELET 359 x1000/uL (130-400); RED BLOOD CELL COUNT 4.72 mill/uL (4.2-5.4); WHITE BLOOD COUNT 5.9 x1000/uL (4.5-11.0)
[2023-07-09] MEDS ORDERED: MORPHINE SULFATE 4 MG/ML CPJ (NOT FOR IM USE) IV NR (00:45)
[2023-07-09] MEDS ORDERED: ASPIRIN 81MG TABLET PO NR (00:45)
[2023-07-09] MEDS ORDERED: GUAIFENESIN 200MG/10ML SUGAR FREE UDC PO PRN (05:15)
[2023-07-09] MEDS ORDERED: ACETAMINOPHEN 325MG TABLET PO PRN ×2 (05:15)
[2023-07-09] MEDS ORDERED: MAGNESIUM/ALUMINUM HYDROXIDE/SIMETHICONE 30ML UDC PO PRN (05:15)
[2023-07-09] MEDS ORDERED: ONDANSETRON HCL 4MG/2ML INJ IV PRN (05:15)
[2023-07-09] MEDS ORDERED: DEXTROSE 50% WATER 50ML SYRINGE IV PRN (05:15)
[2023-07-09] MEDS ORDERED: IPRATROPIUM/ALBUTEROL 0.5-3(2.5)MG/3ML NEB HHN PRN (05:15)
[2023-07-09] MEDS ORDERED: CLONIDINE 0.1MG TABLET PO PRN (05:15)
[2023-07-09] MEDS ORDERED: KETOROLAC 30MG/ML VIAL IM NR (05:30)
[2023-07-09 06:06] LABS: CREATINE KINASE MB FRACTION 3.8 ng/mL (0.5-3.6)
[2023-07-09] MEDS: INSULIN LISPRO 100 UNITS/ML SUBCUT SCH ×3 (08:20→21:00)
[2023-07-09] MEDS: ASPIRIN 81MG TABLET PO SCH (09:00)
[2023-07-09] MEDS: BLOOD SUGAR DIAGNOSTIC STRIP TEST SCH ×3 (09:00→21:05)
[2023-07-09] MEDS: ENOXAPARIN 30MG/0.3ML SYR SUBCUT SCH ×2 (09:00→21:04)
[2023-07-09 12:00] VITALS: BP 153/86; PULSE 88; RESP 18; TEMP 97.3
[2023-07-09 12:43] VITALS: BP 156/88; PULSE 73; RESP 19; TEMP 98
[2023-07-09 13:11] VITALS: BP 153/88; PULSE 88; RESP 17; TEMP 97.5
[2023-07-09] MEDS: IBUPROFEN 600MG TABLET PO SCH ×2 (13:36→16:00)
[2023-07-09] MEDS: FAMOTIDINE 20MG/2ML VIAL IV SCH ×2 (15:55→21:03)
[2023-07-09] MEDS: BACLOFEN 10MG TABLET PO SCH ×2 (15:56→23:14)
[2023-07-09] MEDS: DOXYCYCLINE HYCLATE 100MG CAPSULE PO SCH ×2 (15:56→23:13)
[2023-07-09] MEDS: HYDRALAZINE HCL 100MG TABLET PO SCH ×2 (15:57→23:14)
[2023-07-09] MEDS: CLONIDINE 0.3MG TABLET PO SCH ×2 (15:57→23:14)
[2023-07-09 16:00] VITALS: BP 179/102; PULSE 84; RESP 17; TEMP 98.1
[2023-07-09] MEDS: FUROSEMIDE 40MG TABLET PO SCH (17:19)
[2023-07-09 17:56] LABS: PROTHROMBIN TIME 10.9 sec (9.6-11.0)
[2023-07-09 18:16] LABS: CREATINE KINASE MB FRACTION 3.7 ng/mL (0.5-3.6)
[2023-07-09 20:00] VITALS: BP 157/75; PULSE 70; RESP 16; TEMP 97.9
[2023-07-09] MEDS ORDERED: IOHEXOL-350 100 ML BOTTLE ONE (21:04)
[2023-07-10] VITALS (9 sets, daily range): BP systolic 133–173; BP diastolic 53–88; PULSE 60–85; RESP 14–22; TEMP 96.7–98.6
[2023-07-10] MEDS: HYDRALAZINE HCL 100MG TABLET PO SCH ×3 (06:18→23:27)
[2023-07-10] MEDS: CLONIDINE 0.3MG TABLET PO SCH ×3 (06:18→23:28)
[2023-07-10] MEDS: FUROSEMIDE 40MG TABLET PO SCH ×2 (06:18→18:00)
[2023-07-10] MEDS: BACLOFEN 10MG TABLET PO SCH ×3 (06:18→23:27)
[2023-07-10] MEDS: BLOOD SUGAR DIAGNOSTIC STRIP TEST SCH ×4 (06:19→20:04)
[2023-07-10] MEDS: INSULIN LISPRO 100 UNITS/ML SUBCUT SCH ×4 (07:20→20:04)
[2023-07-10 07:49] LABS: BASOPHILS % 0.6 % (0.0-2.0); EOSINOPHILS % 1.3 % (0.0-5.0); HEMATOCRIT. 38.7 % (36.0-48.0); HEMOGLOBIN. 12.7 g/dL (12.0-16.0); LYMPHOCYTES % 55.8 % (20.0-50.0); MEAN CORPUSCULAR HEMOGLOBIN 27.4 pg (28.0-32.0); MEAN CORPUSCULAR HGB CONC 32.8 g/dL (31.0-37.0); MEAN CORPUSCULAR VOLUME 83.5 fL (81.0-99.0); MEAN PLATELET VOLUME 8.9 fl (7.4-10.4); MONOCYTES % 11.7 % (2.0-8.0); NEUTROPHILS % 30.6 % (40.0-76.0); PLATELET 320 x1000/uL (130-400); RED BLOOD CELL COUNT 4.63 mill/uL (4.2-5.4); RED CELL DISTRIBUTION WIDTH 17.2 % (11.6-14.6); WHITE BLOOD COUNT 5.3 x1000/uL (4.5-11.0)
[2023-07-10 08:24] LABS: CHLORIDE 111 mEq/L (98-107); INDEX HEMOLYSI 1 (1-3); INDEX ICTERIC 1 (1-4); INDEX LIPEMIC 1 (1-3); POTASSIUM 3.6 mEq/L (3.5-5.1); SODIUM 141 mEq/L (136-145)
[2023-07-10] MEDS: ASPIRIN 81MG TABLET PO SCH (08:34)
[2023-07-10] MEDS: ENOXAPARIN 30MG/0.3ML SYR SUBCUT SCH ×2 (08:34→20:00)
[2023-07-10] MEDS: IBUPROFEN 600MG TABLET PO SCH ×3 (08:36→17:00)
[2023-07-10] MEDS: FAMOTIDINE 20MG/2ML VIAL IV SCH ×2 (08:36→19:59)
[2023-07-10] MEDS: DOXYCYCLINE HYCLATE 100MG CAPSULE PO SCH ×2 (08:36→19:59)
[2023-07-10 08:43] LABS: ALANINE AMINOTRANSFERASE 23 IU/L (13-61); ALBUMIN 3.4 g/dL (3.4-5.0); ASPARTATE AMINOTRANSFERASE 21 IU/L (15-37); BILIRUBIN TOTAL 0.3 mg/dL (0.1-1.0); CARBON DIOXIDE 27 mEq/L (21-32); CREATININE 0.9 mg/dL (0.6-1.3); GLUCOSE 78 mg/dL (70-105); PROTEIN TOTAL 7.4 g/dL (6.0-8.3); T4 FREE 0.93 ng/dL (0.76-1.46); UREA NITROGEN BLOOD 14 mg/dL (7-21)
[2023-07-10 08:59] LABS: BG BASE EXCESS 2.3 mmol/L (-2.0-2.0); BG CARBOXYHEMOGLOBIN 0.8 % (0.5-1.5); BG DEOXYHEMOGLOBIN 6.9 % (0.0-5.0); BG FRACTION INSPIRED OXYGEN 21; BG HCO3 ACT 27.5 mmol/L (22.0-26.0); BG METHEMOGLOBIN 0.1 % (0.0-1.5); BG OXYHEMOGLOBIN 92.2 % (94.0-97.0); BG PCO2 44.9 mmHg (35.0-45.0); BG PH 7.405 (7.350-7.450); BG PO2 66.9 mmHg (75.0-100.0); BG SAMPLE SITE RIGHT RADIAL; BG VENT MODE ROOM AIR
[2023-07-10] MEDS ORDERED: HYDROCODONE/ACETAMINOPHEN 5/325MG TABLET PO NR (18:00)
[2023-07-10] MEDS ORDERED: LORAZEPAM 0.5MG TABLET PO PRN (18:00)
[2023-07-10] MEDS ORDERED: GABAPENTIN 300MG CAPSULE PO PRN (18:00)
[2023-07-10] MEDS ORDERED: MORPHINE SULFATE 4 MG/ML CPJ (NOT FOR IM USE) IV NR (19:15)
[2023-07-10] MEDS: DOCUSATE SODIUM 100MG CAPSULE PO PRN (19:59)
[2023-07-10] MEDS: GABAPENTIN 300MG CAPSULE PO SCH (23:28)
[2023-07-11 04:00] VITALS: PULSE 57; RESP 15; TEMP 98.6
[2023-07-11 05:45] LABS: CHLORIDE 109 mEq/L (98-107); INDEX HEMOLYSI 1 (1-3); INDEX ICTERIC 1 (1-4); INDEX LIPEMIC 1 (1-3); SODIUM 139 mEq/L (136-145)
[2023-07-11 05:51] LABS: HEMATOCRIT 41.2 % (36.0-48.0); HEMOGLOBIN 13.2 g/dL (12.0-16.0); MEAN CORPUSCULAR HEMOGLOBIN 27.1 pg (28.0-32.0); MEAN CORPUSCULAR HGB CONC 31.9 g/dL (31.0-37.0); PLATELET 303 x1000/uL (130-400); RED BLOOD CELL COUNT 4.85 mill/uL (4.2-5.4); RED CELL DISTRIBUTION WIDTH 17.5 % (11.6-14.6); WHITE BLOOD COUNT 5.3 x1000/uL (4.5-11.0)
[2023-07-11 05:56] LABS: ALANINE AMINOTRANSFERASE 24 IU/L (13-61); ALBUMIN 3.5 g/dL (3.4-5.0); ASPARTATE AMINOTRANSFERASE 17 IU/L (15-37); BILIRUBIN TOTAL 0.6 mg/dL (0.1-1.0); CALCIUM 9.4 mg/dL (8.5-10.1); CARBON DIOXIDE 27 mEq/L (21-32); CREATININE 0.9 mg/dL (0.6-1.3); GLUCOSE 104 mg/dL (70-105); PROTEIN TOTAL 7.5 g/dL (6.0-8.3); UREA NITROGEN BLOOD 18 mg/dL (7-21)
[2023-07-11 06:41] VITALS: BP 153/78; PULSE 58; RESP 23
[2023-07-11] MEDS: HYDRALAZINE HCL 100MG TABLET PO SCH ×2 (06:45→14:45)
[2023-07-11] MEDS: FUROSEMIDE 40MG TABLET PO SCH (06:45)
[2023-07-11] MEDS: GABAPENTIN 300MG CAPSULE PO SCH ×2 (06:45→14:46)
[2023-07-11] MEDS: BACLOFEN 10MG TABLET PO SCH ×2 (06:45→14:46)
[2023-07-11] MEDS: CLONIDINE 0.3MG TABLET PO SCH ×2 (06:45→14:45)
[2023-07-11] MEDS: INSULIN LISPRO 100 UNITS/ML SUBCUT SCH ×2 (07:20→12:20)
[2023-07-11] MEDS: BLOOD SUGAR DIAGNOSTIC STRIP TEST SCH ×2 (07:26→12:32)
[2023-07-11 08:00] VITALS: BP 138/108; PULSE 88; RESP 24; TEMP 97.6
[2023-07-11] MEDS: FAMOTIDINE 20MG/2ML VIAL IV SCH (09:00)
[2023-07-11] MEDS: ASPIRIN 81MG TABLET PO SCH (09:11)
[2023-07-11] MEDS: DOXYCYCLINE HYCLATE 100MG CAPSULE PO SCH (09:12)
[2023-07-11] MEDS: IBUPROFEN 600MG TABLET PO SCH ×2 (09:12→14:45)
[2023-07-11] MEDS: ENOXAPARIN 30MG/0.3ML SYR SUBCUT SCH (09:13)
[2023-07-11] MEDS: DOCUSATE SODIUM 100MG CAPSULE PO PRN (09:15)
[2023-07-11] MEDS ORDERED: HYDROCODONE/ACETAMINOPHEN 10/325MG TABLET PO NR (11:30)
[2023-07-11 12:00] VITALS: BP 129/63; PULSE 72; RESP 21; TEMP 97.7
[2023-07-11 16:00] VITALS: BP 151/92; PULSE 60; RESP 22; TEMP 98.4
[2023-07-11 17:12] VITALS: BP 151/92; PULSE 62; TEMP 98.4; O2SAT 100
== END 2023-07-11 20:33 | disposition home or self-care (01) | DRG 314 ==
LOC: ER 22:40 → 3WST 07-09 01:47
PROVIDERS: ADMIT Internal Medicine; ATTEND Internal Medicine
DX: I31.9 Disease of pericardium, unspecified (principal); I71.00 Dissection of unspecified site of aorta; J96.21 Acute and chronic respiratory failure with hypoxia; J44.1 Chronic obstructive pulmonary disease with (acute) exacerbation; Z68.42 Body mass index [BMI] 45.0-49.9, adult; M62.82 Rhabdomyolysis; E66.01 Morbid (severe) obesity due to excess calories; G47.33 Obstructive sleep apnea (adult) (pediatric); I25.10 Atherosclerotic heart disease of native coronary artery without angina pectoris; I50.9 Heart failure, unspecified; I11.0 Hypertensive heart disease with heart failure; E11.9 Type 2 diabetes mellitus without complications; Z79.4 Long term (current) use of insulin; Z99.81 Dependence on supplemental oxygen; Z79.82 Long term (current) use of aspirin; Z79.899 Other long term (current) drug therapy; Z86.718 Personal history of other venous thrombosis and embolism; Z87.891 Personal history of nicotine dependence; Z96.659 Presence of unspecified artificial knee joint
CPT/HCPCS: 36415; 36600; 71045; 71275; 80053; 80061; 80320; 82375; 82550; 82553; 82805; 82962; 83036; 83605; 83880; 84439; 84443; 84484; 85025; 85027; 85379; 93005; 93306; 93970; 99285; J1650; J1815; J1885; J2270; J3490; Q9967; G0480

== ENCOUNTER 2024-08-25 12:18 | Emergency (ER) | payer MEDICARE, MEDICAID ==
[~2024-08-25] VITALS: Ht 167.6 cm; Wt 109.0 kg
[~2024-08-25 12:18] MED LIST changes: -ALBU18HF2 IH; +ASPI-1497 MT; -CLIN-194 MT; +CLOP75TA33 PO; -DULA1.5P SQ; +FAMO20TA8 PO; +GABA-290 PO; -GABA-532 PO; -HYDR-4009 MT; +HYDR-4009 PO; +HYDR100T11 PO; -HYDR100T26 PO; -HYDR50TA54 PO; +INSLIS SUBCUT; -INSU100V37 SQ; +INSU100V43 SQ; -LOSA-413 PO; +LOVA20TA2 PO; +PANT40TA51 PO; -PREG100C PO; +RIVA2.5T PO; -TIZA-204 PO; -UMEC1DIS IH; -WARFARIN PO
[2024-08-25] MEDS: MORPHINE SULFATE 4 MG/ML INJ (FOR IV/IM USE) IM ONE (13:44)
[2024-08-25 14:20] VITALS: PULSE 81; RESP 26; O2SAT 100
[2024-08-25] MEDS: ALBUTEROL (0.5%) 2.5MG/0.5ML NEB HHN ONE (14:21)
[2024-08-25] MEDS ORDERED: KETOROLAC 30MG/ML VIAL IM ONE (16:15)
[2024-08-25 18:13] VITALS: BP 138/74; PULSE 75; RESP 17; TEMP 36.72516; O2SAT 98
== END 2024-08-25 18:14 | disposition home or self-care (01) ==
LOC: ER 12:18
DX: M54.30 Sciatica, unspecified side (principal); E11.9 Type 2 diabetes mellitus without complications; I50.9 Heart failure, unspecified; I11.0 Hypertensive heart disease with heart failure; Z79.82 Long term (current) use of aspirin; Z79.899 Other long term (current) drug therapy; Z79.4 Long term (current) use of insulin
CPT/HCPCS: 99285; 93971; 94640; 96372; J1885; J2270

== ENCOUNTER → 2024-10-16 | Outpatient (CLI) | payer MEDICARE, MEDICAID | END | disposition home or self-care (01) | LOC: CT 07:04 | PROVIDERS: ATTEND Internal Medicine Critical Care Medicine | DX: K57.30 Diverticulosis of large intestine without perforation or abscess without bleeding (principal); R16.0 Hepatomegaly, not elsewhere classified; K76.0 Fatty (change of) liver, not elsewhere classified; R10.9 Unspecified abdominal pain; I25.10 Atherosclerotic heart disease of native coronary artery without angina pectoris; K56.699 Other intestinal obstruction unspecified as to partial versus complete obstruction; K82.8 Other specified diseases of gallbladder; M47.816 Spondylosis without myelopathy or radiculopathy, lumbar region; M47.817 Spondylosis without myelopathy or radiculopathy, lumbosacral region | CPT/HCPCS: 74176 ==

== ENCOUNTER 2024-12-14 21:49 | Emergency (ER) | payer MEDICARE, MEDICAID ==
[~2024-12-14] VITALS: Ht 165.1 cm; Wt 96.0 kg
[2024-12-14 22:29] VITALS: TEMP 98.3; O2SAT 100
[2024-12-15] MEDS: LIDOCAINE 5% PATCH TOP SCH (00:03)
[2024-12-15] MEDS: CYCLOBENZAPRINE 10MG TABLET PO ONE (00:03)
[2024-12-15] MEDS: KETOROLAC 15MG/ML VIAL IM ONE (00:03)
[2024-12-15] MEDS ORDERED: CYCL5TAB3 MT (04:38)
[2024-12-15] MEDS ORDERED: LIDO700A15 TP (04:38)
[2024-12-15] MEDS ORDERED: NAPR-1176 MT (04:38)
[2024-12-15 05:06] VITALS: BP 187/97; PULSE 88; RESP 18
[2024-12-15] MEDS: HYDROCODONE/ACETAMINOPHEN 5/325MG TABLET PO ONE (05:06)
== END 2024-12-15 05:08 | disposition home or self-care (01) ==
LOC: ER 21:49
DX: M54.50 Low back pain, unspecified (principal); M54.2 Cervicalgia; I11.0 Hypertensive heart disease with heart failure; I50.9 Heart failure, unspecified; E11.9 Type 2 diabetes mellitus without complications; Z79.899 Other long term (current) drug therapy; Z79.84 Long term (current) use of oral hypoglycemic drugs; Z79.82 Long term (current) use of aspirin; Z79.4 Long term (current) use of insulin; Z79.1 Long term (current) use of non-steroidal anti-inflammatories (NSAID); Z79.02 Long term (current) use of antithrombotics/antiplatelets
CPT/HCPCS: 99285; 72125; 72128; 72131; 96372; J1885

== ENCOUNTER 2024-12-30 13:24 | Emergency (ER) | payer MEDICARE, MEDICAID ==
[~2024-12-30] VITALS: Ht 172.7 cm; Wt 105.0 kg
[~2024-12-30 13:24] MED LIST changes: +CYCL5TAB3 MT; +LIDO700A15 TP; +NAPR-1176 MT
[2024-12-30 13:27] VITALS: O2SAT 98
[2024-12-30 14:03] LABS: CHLORIDE 108 mEq/L (98-107); SODIUM 144 mEq/L (136-145)
[2024-12-30 14:04] LABS: CALCIUM 10.2 mg/dL (8.7-10.4); CARBON DIOXIDE 29 mEq/L (21-32)
[2024-12-30] MEDS: MORPHINE SULFATE 4 MG/ML INJ (FOR IV/IM USE) IV ONE (14:08)
[2024-12-30 14:09] LABS: CREATININE 0.9 mg/dL (0.6-1.0); GLUCOSE 128 mg/dL (70-105); UREA NITROGEN BLOOD 13 mg/dL (9-23)
[2024-12-30 14:11] LABS: ALANINE AMINOTRANSFERASE 32 IU/L (10-49); ALBUMIN 4.2 g/dL (3.2-4.8); ASPARTATE AMINOTRANSFERASE 26 IU/L (<34); BILIRUBIN TOTAL 0.2 mg/dL (0.1-1.0); PROTEIN TOTAL 7.2 g/dL (6.0-8.3)
[2024-12-30 14:27] LABS: BASOPHILS % 0.3 % (0.0-2.0); EOSINOPHILS % 2.6 % (0.0-5.0); HEMATOCRIT. 41.4 % (36.0-48.0); HEMOGLOBIN. 13.1 g/dL (12.0-16.0); MEAN CORPUSCULAR HEMOGLOBIN 28.6 pg (28.0-32.0); MEAN CORPUSCULAR HGB CONC 31.6 g/dL (31.0-37.0); MEAN CORPUSCULAR VOLUME 90.5 fL (81.0-99.0); MEAN PLATELET VOLUME 8.4 fl (7.4-10.4); MONOCYTES % 10.4 % (2.0-8.0); NEUTROPHILS % 56.7 % (40.0-76.0); PLATELET 290 x1000/uL (130-400); RED BLOOD CELL COUNT 4.58 mill/uL (4.2-5.4); WHITE BLOOD COUNT 6.8 x1000/uL (4.5-11.0)
[2024-12-30 16:52] LABS: TROPONIN I HIGH SENSITIVITY 24 ng/L (3.0-34)
[2024-12-30 17:11] LABS: TROPONIN I HIGH SENSITIVITY 24 ng/L (3.0-34)
[2024-12-30] MEDS ORDERED: IPRATROPIUM/ALBUTEROL 0.5-3(2.5)MG/3ML NEB HHN PRN (18:30)
[2024-12-30] MEDS ORDERED: DOCUSATE SODIUM 100MG CAPSULE PO PRN (18:30)
[2024-12-30] MEDS ORDERED: HYDROCODONE/ACETAMINOPHEN 5/325MG TABLET PO PRN (18:30)
[2024-12-30] MEDS ORDERED: CLONIDINE 0.1MG TABLET PO PRN (18:30)
[2024-12-30] MEDS ORDERED: ONDANSETRON HCL 4MG/2ML INJ IV PRN (18:30)
[2024-12-30] MEDS ORDERED: NALOXONE HCL 0.4MG/ML VIAL IV PRN (18:45)
[2024-12-30] MEDS: HYDROCODONE/ACETAMINOPHEN 10/325MG TABLET PO PRN (18:56)
[2024-12-30 20:30] VITALS: BP 145/78; PULSE 95; RESP 18; TEMP 37.1; O2SAT 95
== END 2024-12-30 20:45 | disposition left against medical advice (07) ==
LOC: ER 13:24 → EDBEDREQ 13:59 → ER 20:45
DX: R55 Syncope and collapse (principal); S09.90XA Unspecified injury of head, initial encounter; J44.9 Chronic obstructive pulmonary disease, unspecified; I11.0 Hypertensive heart disease with heart failure; E11.9 Type 2 diabetes mellitus without complications; I50.9 Heart failure, unspecified; Z79.899 Other long term (current) drug therapy; Z79.84 Long term (current) use of oral hypoglycemic drugs; Z79.4 Long term (current) use of insulin; Z79.1 Long term (current) use of non-steroidal anti-inflammatories (NSAID); Z79.82 Long term (current) use of aspirin; W19.XXXA Unspecified fall, initial encounter; Y93.89 Activity, other specified; Y92.89 Other specified places as the place of occurrence of the external cause; Y99.8 Other external cause status
CPT/HCPCS: 99285; 70450; 96374; 71045; 80053; 85025; 84484; 36415; 73030; 73110; 73560; 73610; 72125; 72128; 72131; 93005; J2270

== ENCOUNTER 2025-03-09 05:22 | Inpatient (IN) | payer MEDICARE, MEDICAID ==
[2025-03-09] VITALS (8 sets, daily range): BP systolic 122–153; BP diastolic 65–76; PULSE 90–134; RESP 17–30; TEMP 36.3–36.8; O2SAT 94–99
[~2025-03-09] VITALS: Ht 170.2 cm; Wt 136.5 kg
[2025-03-09] MEDS: ALBUTEROL (0.083%) 2.5MG/3ML NEB HHN STA (05:39)
[2025-03-09] MEDS: IPRATROPIUM BROMIDE (0.02%) 0.5MG/2.5ML NEB HHN STA (05:40)
[2025-03-09 06:16] LABS: BG BASE EXCESS -2.3 mmol/L (-2.0-3.0); BG FRACTION INSPIRED OXYGEN 36; BG HCO3 ACT 22.1 mmol/L (21.0-28.0); BG METHEMOGLOBIN 0.3 % (0.5-1.5); BG OXYHEMOGLOBIN 96.7 % (94.0-98.0); BG PCO2 36.5 mmHg (32.0-45.0); BG PH 7.399 (7.350-7.450); BG PO2 108.1 mmHg (83.0-108.0); BG SAMPLE SITE RIGHT BRACHIAL; BG TOTAL HEMOGLOBIN 13.4 g/dL (12.0-16.0); BG VENT MODE NASAL CANNULA
[2025-03-09] MEDS: MAGNESIUM 2 G PREMIX 50 ML IV STA (06:50)
[2025-03-09] MEDS: METHYLPREDNISOLONE SOD SUCC 125MG/2ML (ACT-O-VIAL) IV STA (06:50)
[2025-03-09 07:06] LABS: MEAN PLATELET VOLUME 8.4 fl (7.4-10.4)
[2025-03-09 07:08] LABS: BASOPHILS % 0.8 % (0.0-2.0); EOSINOPHILS % 2.5 % (0.0-5.0); HEMATOCRIT. 39.8 % (36.0-48.0); HEMOGLOBIN. 12.9 g/dL (12.0-16.0); LYMPHOCYTES % 27.4 % (20.0-50.0); MEAN CORPUSCULAR HEMOGLOBIN 28.2 pg (28.0-32.0); MEAN CORPUSCULAR HGB CONC 32.4 g/dL (31.0-37.0); MEAN CORPUSCULAR VOLUME 87.1 fL (81.0-99.0); MONOCYTES % 8.8 % (2.0-8.0); NEUTROPHILS % 60.5 % (40.0-76.0); PLATELET 279 x1000/uL (130-400); RED BLOOD CELL COUNT 4.57 mill/uL (4.2-5.4); RED CELL DISTRIBUTION WIDTH 15.2 % (11.6-14.6); WHITE BLOOD COUNT 8.6 x1000/uL (4.5-11.0)
[2025-03-09 07:17] LABS: CHLORIDE 106 mEq/L (98-107); POTASSIUM 3.9 mEq/L (3.5-5.1); SODIUM 141 mEq/L (136-145)
[2025-03-09 07:18] LABS: CARBON DIOXIDE 26 mEq/L (21-32)
[2025-03-09 07:23] LABS: CREATININE 0.9 mg/dL (0.6-1.0); GLUCOSE 197 mg/dL (70-105); UREA NITROGEN BLOOD 12 mg/dL (9-23)
[2025-03-09 07:24] LABS: TROPONIN I HIGH SENSITIVITY 14 ng/L (3.0-34)
[2025-03-09 07:26] LABS: CALCIUM 9.7 mg/dL (8.7-10.4)
[2025-03-09] MEDS ORDERED: IPRATROPIUM/ALBUTEROL 0.5-3(2.5)MG/3ML NEB HHN PRN (08:45)
[2025-03-09] MEDS: ENALAPRIL 2.5MG/2ML VIAL 2ML IV ONE (08:50)
[2025-03-09] MEDS: FUROSEMIDE 40MG/4ML VIAL IVP ONE (08:51)
[2025-03-09] MEDS: ENALAPRIL 1.25MG/ML VIAL 1ML IV NR (08:52)
[2025-03-09] MEDS ORDERED: GUAIFENESIN 200MG/10ML SUGAR FREE UDC PO PRN (10:30)
[2025-03-09] MEDS ORDERED: ACETAMINOPHEN 325MG TABLET PO PRN (10:30)
[2025-03-09] MEDS ORDERED: DEXTROSE 50% WATER 50ML SYRINGE IV PRN (10:30)
[2025-03-09] MEDS ORDERED: IPRATROPIUM/ALBUTEROL 0.5-3(2.5)MG/3ML NEB NEB SCH (10:30)
[2025-03-09] MEDS ORDERED: ONDANSETRON HCL 4MG/2ML INJ IV PRN (10:30)
[2025-03-09] MEDS ORDERED: NALOXONE HCL 0.4MG/ML VIAL IV PRN (10:45)
[2025-03-09] MEDS: MORPHINE SULFATE 2 MG/ML INJ (NOT FOR IM USE) IV PRN (10:53)
[2025-03-09] MEDS: BLOOD SUGAR DIAGNOSTIC STRIP TEST SCH (11:45)
[2025-03-09] MEDS: RIVAROXABAN 2.5 MG TABLET PO SCH (13:00)
[2025-03-09] MEDS ORDERED: IOHEXOL-350 100 ML BOTTLE ONE (13:34)
[2025-03-09] MEDS: BUDESONIDE 0.5MG/2ML NEB HHN SCH (13:35)
[2025-03-09] MEDS: IPRATROPIUM BROMIDE (0.02%) 0.5MG/2.5ML NEB HHN SCH (13:35)
[2025-03-09] MEDS: HYDRALAZINE HCL 100MG TABLET PO SCH (13:46)
[2025-03-09] MEDS: CLONIDINE 0.3MG TABLET PO SCH (13:46)
[2025-03-09] MEDS: INSULIN LISPRO 100 UNITS/ML SUBCUT SCH ×2 (14:08→18:42)
[2025-03-09] MEDS: GABAPENTIN 300MG CAPSULE PO SCH (14:40)
[2025-03-09] MEDS: HYDROCODONE/ACETAMINOPHEN 5/325MG TABLET PO PRN (14:42)
[2025-03-09 17:40] LABS: TROPONIN I HIGH SENSITIVITY 12 ng/L (3.0-34)
[2025-03-09] MEDS: FUROSEMIDE 40MG TABLET PO SCH (18:25)
[2025-03-09] MEDS: ATORVASTATIN CALCIUM 40MG TABLET PO SCH (21:59)
[2025-03-09] MEDS: ZOLPIDEM TARTRATE 5MG TABLET PO PRN (21:59)
[2025-03-09] MEDS: INSULIN GLARGINE 100 UNITS/ML SUBCUT SCH (22:04)
[2025-03-10] VITALS (11 sets, daily range): BP systolic 131–158; BP diastolic 58–84; PULSE 79–98; RESP 16–20; TEMP 35.8–36.6; O2SAT 94–100
[2025-03-10 00:37] LABS: TROPONIN I HIGH SENSITIVITY 8 ng/L (3.0-34)
[2025-03-10] MEDS: PANTOPRAZOLE 40MG DR TABLET PO SCH (09:47)
[2025-03-10] MEDS: ASPIRIN 81MG EC TABLET PO SCH (09:49)
[2025-03-10] MEDS: CLOPIDOGREL 75MG TABLET PO SCH (09:49)
[2025-03-10] MEDS ORDERED: PREG100C MT (10:23)
[2025-03-10] MEDS ORDERED: TIZA4CAP6 PO (10:23)
[2025-03-10] MEDS ORDERED: IBUP-2030 PO (10:23)
[2025-03-10] MEDS ORDERED: DOCU-422 PO (10:23)
[2025-03-10] MEDS ORDERED: LIDO700A30 TP (10:23)
[2025-03-10] MEDS ORDERED: INSLIS SUBCUT (10:23)
[2025-03-10] MEDS ORDERED: CLOP-31 PO (10:23)
[2025-03-10] MEDS ORDERED: DAPA10TA MT (10:23)
[2025-03-10] MEDS ORDERED: GABA800T97 PO (10:23)
[2025-03-10] MEDS ORDERED: LOSA50TA41 PO (10:23)
[2025-03-10] MEDS ORDERED: HYDR50CA5 MT (10:23)
[2025-03-10] MEDS ORDERED: ASPI-1406 PO (10:23)
[2025-03-10] MEDS ORDERED: RIVA10TA PO (10:23)
[2025-03-10] MEDS ORDERED: HYDR-4009 MT (10:23)
[2025-03-10] MEDS ORDERED: CYAN-33 MT (10:23)
[2025-03-10] MEDS ORDERED: HYDR100T11 MT (10:23)
[2025-03-10] MEDS ORDERED: INSU100I28 SQ (10:23)
[2025-03-10] MEDS ORDERED: LORA10TA7 PO (10:23)
[2025-03-10] MEDS ORDERED: TOPUD PO (10:23)
[2025-03-10] MEDS ORDERED: AMLO5TAB88 MT (10:23)
[2025-03-10] MEDS ORDERED: TERB2.5T2 PO (10:23)
[2025-03-10] MEDS ORDERED: OMEG-79 MT (10:23)
[2025-03-10] MEDS ORDERED: MELO-106 PO (10:23)
[2025-03-10] MEDS ORDERED: LOVA20TA2 PO (10:23)
[2025-03-10] MEDS ORDERED: PREG100C PO (10:23)
[2025-03-10] MEDS ORDERED: CYCL10TA21 PO (10:23)
[2025-03-10] MEDS ORDERED: MONT-39 PO (10:23)
[2025-03-10] MEDS ORDERED: DOCUSATE SODIUM 100MG CAPSULE PO SCH (11:30)
[2025-03-10] MEDS: DOCUSATE SODIUM 100MG CAPSULE PO SCH (13:51)
[2025-03-10] MEDS: FUROSEMIDE 20MG/2ML VIAL IVP NR (17:51)
[2025-03-10] MEDS: ENOXAPARIN 40MG/0.4ML SYR SUBCUT SCH (21:26)
[2025-03-11] VITALS (9 sets, daily range): BP systolic 123–161; BP diastolic 73–91; PULSE 79–105; RESP 18–19; TEMP 36.2–36.7; O2SAT 91–96
== END 2025-03-11 17:34 | disposition home or self-care (01) | DRG 205 ==
LOC: ER 05:22 → EDBEDREQ 07:55 → 5WST 10:11
PROVIDERS: ADMIT Internal Medicine; ATTEND Internal Medicine
DX: T17.898A Other foreign object in other parts of respiratory tract causing other injury, initial encounter (principal); J96.01 Acute respiratory failure with hypoxia; J44.1 Chronic obstructive pulmonary disease with (acute) exacerbation; Z68.43 Body mass index [BMI] 50.0-59.9, adult; I50.32 Chronic diastolic (congestive) heart failure; I11.0 Hypertensive heart disease with heart failure; E66.01 Morbid (severe) obesity due to excess calories; E11.9 Type 2 diabetes mellitus without complications; Z99.81 Dependence on supplemental oxygen; M54.9 Dorsalgia, unspecified; G89.29 Other chronic pain; R00.0 Tachycardia, unspecified; Z86.718 Personal history of other venous thrombosis and embolism; Z87.891 Personal history of nicotine dependence; Z79.899 Other long term (current) drug therapy; Z79.4 Long term (current) use of insulin; Z96.653 Presence of artificial knee joint, bilateral; W44.8XXA Other foreign body entering into or through a natural orifice, initial encounter; Y93.89 Activity, other specified; Y92.89 Other specified places as the place of occurrence of the external cause; Y99.8 Other external cause status
CPT/HCPCS: 36415; 36600; 70490; 71045; 71275; 80048; 82375; 82805; 82962; 83036; 83880; 84484; 85025; 93005; 93970; 94070; 94640; 94664; 99285; A4606; J1650; J1815; J1940; J2270; J2919; J3475; J3490; J7626; Q9967

== ENCOUNTER 2025-04-16 14:11 | Inpatient (IN) | payer MEDICARE, MEDICAID ==
[2025-04-16] VITALS (7 sets, daily range): BP systolic 125–155; BP diastolic 68–79; PULSE 102–122; RESP 20–38; TEMP 36.3–36.9; O2SAT 94–99
[~2025-04-16] VITALS: Ht 170.2 cm; Wt 134.4 kg
[~2025-04-16 14:11] MED LIST changes: -CHOL-36 PO; -CYCL5TAB3 MT; -DAPA10TA PO; +DOCU-422 PO; -FAMO20TA8 PO; -HYDR-4009 PO; -IBUP-2030 PO; -INSLIS SUBCUT; -IPRA4AER INH; +LIDO-53 TP; -LIDO700A15 TP; -LOVA20TA2 PO; -NAPR-1176 MT
[2025-04-16] MEDS ORDERED: ALBUTEROL (0.083%) 2.5MG/3ML NEB HHN STA (14:22)
[2025-04-16] MEDS ORDERED: IPRATROPIUM BROMIDE (0.02%) 0.5MG/2.5ML NEB HHN STA (14:22)
[2025-04-16] MEDS: METHYLPREDNISOLONE SOD SUCC 125MG/2ML (ACT-O-VIAL) IV STA (15:08)
[2025-04-16] MEDS: MAGNESIUM 2 G PREMIX 50 ML IV STA (15:08)
[2025-04-16 15:22] LABS: BASOPHILS % 0.2 % (0.0-2.0); EOSINOPHILS % 3.8 % (0.0-5.0); HEMATOCRIT. 40.1 % (36.0-48.0); HEMOGLOBIN. 12.9 g/dL (12.0-16.0); LYMPHOCYTES % 49.5 % (20.0-50.0); MEAN CORPUSCULAR HGB CONC 32.1 g/dL (31.0-37.0); MEAN CORPUSCULAR VOLUME 87.1 fL (81.0-99.0); MEAN PLATELET VOLUME 7.9 fl (7.4-10.4); MONOCYTES % 12.6 % (2.0-8.0); NEUTROPHILS % 33.9 % (40.0-76.0); PLATELET 299 x1000/uL (130-400); RED BLOOD CELL COUNT 4.61 mill/uL (4.2-5.4); RED CELL DISTRIBUTION WIDTH 15.7 % (11.6-14.6)
[2025-04-16] MEDS: AZITHROMYCIN 500MG/250ML 250 ML IV ONE (15:25)
[2025-04-16] MEDS: MORPHINE SULFATE 4 MG/ML INJ (FOR IV/IM USE) IV ONE (15:27)
[2025-04-16 15:31] LABS: CHLORIDE 107 mEq/L (98-107); POTASSIUM 3.9 mEq/L (3.5-5.1); SODIUM 142 mEq/L (136-145)
[2025-04-16 15:32] LABS: CALCIUM 9.3 mg/dL (8.7-10.4); CARBON DIOXIDE 26 mEq/L (21-32); PROTHROMBIN TIME 10.3 sec (9.6-11.0)
[2025-04-16 15:37] LABS: CREATININE 0.9 mg/dL (0.6-1.0); GLUCOSE 142 mg/dL (70-105); UREA NITROGEN BLOOD 13 mg/dL (9-23)
[2025-04-16 15:38] LABS: TROPONIN I HIGH SENSITIVITY 11 ng/L (3.0-34)
[2025-04-16] MEDS: IPRATROPIUM BROMIDE (0.02%) 0.5MG/2.5ML NEB HHN NR (16:15)
[2025-04-16] MEDS ORDERED: MAGNESIUM/ALUMINUM HYDROXIDE/SIMETHICONE 30ML UDC PO PRN (16:15)
[2025-04-16] MEDS ORDERED: ONDANSETRON HCL 4MG/2ML INJ IV PRN (16:15)
[2025-04-16] MEDS ORDERED: DEXTROSE 50% WATER 50ML SYRINGE IV PRN (16:15)
[2025-04-16] MEDS ORDERED: ENOXAPARIN 40MG/0.4ML SYR SUBCUT SCH (16:15)
[2025-04-16] MEDS ORDERED: ACETAMINOPHEN 325MG TABLET PO PRN ×2 (16:15)
[2025-04-16] MEDS: ALBUTEROL (0.083%) 2.5MG/3ML NEB HHN NR (16:19)
[2025-04-16 16:45] LABS: CLARITY URINE CLEAR (CLEAR); GLUCOSE URINE 3+ (NEGATIVE); KETONES URINE NEGATIVE (NEGATIVE); LEUKOCYTE ESTERASE URINE NEGATIVE (NEGATIVE); NITRITE URINE NEGATIVE (NEGATIVE); OCCULT BLOOD URINE NEGATIVE (NEGATIVE); PH URINE 5.5 (4.5-8.0); PROTEIN URINE NEGATIVE (NEGATIVE); SPECIFIC GRAVITY URINE 1.038 (1.005-1.030); UROBILINOGEN URINE 0.2 E.U./dL (0.2-1.0)
[2025-04-16] MEDS ORDERED: CLONIDINE 0.3MG TABLET PO SCH (17:00)
[2025-04-16] MEDS: BLOOD SUGAR DIAGNOSTIC STRIP TEST SCH (17:00)
[2025-04-16 17:06] LABS: *AMPHETAMINES SCREEN URINE NEGATIVE (NEGATIVE); *BARBITURATES SCREEN URINE NEGATIVE (NEGATIVE); *BENZODIAZEPINES SCREEN URINE NEGATIVE (NEGATIVE)
[2025-04-16 17:07] LABS: *COCAINE SCREEN URINE NEGATIVE (NEGATIVE); CANNABINOID URINE SCREEN NEGATIVE (NEGATIVE); ECSTASY MDMA SCREEN URINE NEGATIVE (NEGATIVE); METHADONE URINE SCREEN NEGATIVE (NEGATIVE); OPIATES URINE SCREEN PRESUMPTIVE POSITIVE (NEGATIVE); PHENCYCLIDINE URINE SCREEN NEGATIVE (NEGATIVE)
[2025-04-16 17:21] LABS: COLOR URINE STRAW (YELLOW)
[2025-04-16 17:22] LABS: BACTERIA URINE 1+; RBC URINE NONE SEEN /hpf (0-2); SQUAMOUS EPITHELIAL CELL URINE 2+ /lpf (RARE/1+); WBC URINE 0-2 /hpf (0-2)
[2025-04-16] MEDS: NITROGLYCERIN 0.4MG TABLET SL SL PRN (18:17)
[2025-04-16 18:21] LABS: D-DIMER 0.59 mg/L FEU (<0.50); PARTIAL THROMBOPLASTIN TIME 30.8 sec (23.4-31.0)
[2025-04-16] MEDS: MONTELUKAST SODIUM 10MG TABLET PO SCH (18:53)
[2025-04-16] MEDS: INSULIN GLARGINE 100 UNITS/ML SUBCUT SCH (18:53)
[2025-04-16] MEDS: FUROSEMIDE 40MG/4ML VIAL IV SCH (18:54)
[2025-04-16] MEDS: ASPIRIN 325MG EC TABLET PO NR (18:54)
[2025-04-16] MEDS: INSULIN LISPRO 100 UNITS/ML SUBCUT SCH (18:55)
[2025-04-16] MEDS: ENOXAPARIN 100MG/ML SYR SUBCUT SCH (18:56)
[2025-04-16 20:00] LABS: HEPATITIS B SURFACE ANTIGEN NEGATIVE (Negative)
[2025-04-16] MEDS: MORPHINE SULFATE 2 MG/ML INJ (NOT FOR IM USE) IV PRN (20:04)
[2025-04-16 20:21] LABS: HEPATITIS C AB NON REACTIVE (Neg) (Negative)
[2025-04-16] MEDS: IPRATROPIUM/ALBUTEROL 0.5-3(2.5)MG/3ML NEB HHN SCH (20:54)
[2025-04-16] MEDS ORDERED: METOPROLOL TARTRATE 25MG TABLET PO SCH (21:00)
[2025-04-16] MEDS: ATORVASTATIN CALCIUM 40MG TABLET PO SCH (21:19)
[2025-04-16] MEDS: CLONIDINE 0.3MG TABLET PO SCH (21:20)
[2025-04-16] MEDS: GABAPENTIN 100MG CAPSULE PO SCH (21:20)
[2025-04-16] MEDS: METHYLPREDNISOLONE SOD SUCC 125MG/2ML (ACT-O-VIAL) IV SCH (21:22)
[2025-04-16] MEDS: HYDRALAZINE HCL 100MG TABLET PO SCH (21:23)
[2025-04-16] MEDS: DOCUSATE SODIUM 100MG CAPSULE PO SCH (21:49)
[2025-04-16] MEDS: ZOLPIDEM TARTRATE 5MG TABLET PO NR (23:01)
[2025-04-17] VITALS (18 sets, daily range): BP systolic 118–181; BP diastolic 53–109; PULSE 94–120; RESP 14–24; TEMP 36.3–36.8; O2SAT 93–100
[2025-04-17 00:32] LABS: CREATINE KINASE MB FRACTION 3.7 ng/mL (0.5-3.6)
[2025-04-17] MEDS: HYDROCODONE/ACETAMINOPHEN 5/325MG TABLET PO PRN (03:08)
[2025-04-17] MEDS: IPRATROPIUM/ALBUTEROL 0.5-3(2.5)MG/3ML NEB HHN PRN (04:54)
[2025-04-17 06:08] LABS: HEMATOCRIT. 38.4 % (36.0-48.0); HEMOGLOBIN. 12.5 g/dL (12.0-16.0); LYMPHOCYTES % 12.5 % (20.0-50.0); MEAN CORPUSCULAR HEMOGLOBIN 27.6 pg (28.0-32.0); MEAN CORPUSCULAR HGB CONC 32.6 g/dL (31.0-37.0); MEAN CORPUSCULAR VOLUME 84.9 fL (81.0-99.0); MEAN PLATELET VOLUME 8.4 fl (7.4-10.4); MONOCYTES % 1.8 % (2.0-8.0); NEUTROPHILS % 85.7 % (40.0-76.0); PLATELET 324 x1000/uL (130-400); RED BLOOD CELL COUNT 4.52 mill/uL (4.2-5.4); RED CELL DISTRIBUTION WIDTH 15.7 % (11.6-14.6)
[2025-04-17 06:15] LABS: CHLORIDE 101 mEq/L (98-107); POTASSIUM 4.4 mEq/L (3.5-5.1); SODIUM 137 mEq/L (136-145)
[2025-04-17 06:16] LABS: CALCIUM 9.6 mg/dL (8.7-10.4); CARBON DIOXIDE 22 mEq/L (21-32)
[2025-04-17 06:18] LABS: CREATINE KINASE MB FRACTION 4.6 ng/mL (0.5-3.6)
[2025-04-17 06:19] LABS: TROPONIN I HIGH SENSITIVITY 7 ng/L (3.0-34)
[2025-04-17 06:21] LABS: CREATININE 0.9 mg/dL (0.6-1.0); GLUCOSE 250 mg/dL (70-105); TRIGLYCERIDE 277 mg/dL (0-150); UREA NITROGEN BLOOD 13 mg/dL (9-23)
[2025-04-17 06:22] LABS: LDL CHOLESTEROL 61 mg/dL (5-100)
[2025-04-17 06:23] LABS: CHOLESTEROL 136 mg/dL (<200); CREATINE KINASE 259 IU/L (34-145); HDL CHOLESTEROL 47 mg/dL (>65); T4 FREE 1.19 ng/dL (0.89-1.76); THYROID STIMULATING HORMONE 0.22 uIU/mL (0.55-4.78)
[2025-04-17] MEDS: INSULIN LISPRO 100 UNITS/ML SUBCUT SCH (08:51)
[2025-04-17] MEDS: PANTOPRAZOLE 40MG DR TABLET PO SCH (08:57)
[2025-04-17] MEDS: ASPIRIN 81MG EC TABLET PO SCH (08:57)
[2025-04-17] MEDS: CLOPIDOGREL 75MG TABLET PO SCH (08:57)
[2025-04-17] MEDS: LIDOCAINE 5% PATCH TOP SCH (08:58)
[2025-04-17] MEDS ORDERED: FUROSEMIDE 40MG/4ML VIAL IV SCH (09:00)
[2025-04-17] MEDS ORDERED: ZOLPIDEM TARTRATE 5MG TABLET PO PRN (09:15)
[2025-04-17] MEDS ORDERED: NALOXONE HCL 0.4MG/ML VIAL IV PRN (10:00)
[2025-04-17] MEDS: CLONIDINE 0.1MG TABLET PO PRN (10:55)
[2025-04-17] MEDS: HYDROCODONE/ACETAMINOPHEN 10/325MG TABLET PO PRN (10:57)
[2025-04-17] MEDS: METHYLPREDNISOLONE SOD SUCC 40MG/ML (ACT-O-VIAL) IV SCH ×2 (15:12→20:44)
[2025-04-17] MEDS: ZOLPIDEM TARTRATE 5MG TABLET PO PRN (21:01)
[2025-04-18] VITALS (15 sets, daily range): BP systolic 123–180; BP diastolic 71–112; PULSE 86–115; RESP 11–21; TEMP 36.7–36.9; O2SAT 95–98
[2025-04-18] MEDS: GUAIFENESIN 200MG/10ML SUGAR FREE UDC PO PRN (10:51)
[2025-04-18] MEDS: PREDNISONE 10MG TABLET PO SCH (18:00)
[2025-04-19] VITALS (10 sets, daily range): BP systolic 128–145; BP diastolic 74–87; PULSE 84–105; RESP 13–31; TEMP 36.7–37.2; O2SAT 91–99
[2025-04-19] MEDS: FAMOTIDINE 20MG TABLET PO SCH (08:30)
[2025-04-19] MEDS ORDERED: LIP40 PO (10:06)
[2025-04-19] MEDS ORDERED: P20 MT (10:06)
[2025-04-19] MEDS ORDERED: PROM6.2533 MT (10:06)
[2025-04-20] MEDS ORDERED: PREDNISONE 10MG TABLET PO SCH (09:00)
== END 2025-04-19 14:20 | disposition home or self-care (01) | DRG 189 ==
LOC: ER 14:11 → 5EST 15:54 → EDBEDREQ 15:59 → EDBEDREQTM 15:59 → ENRESERV 16:23
PROVIDERS: ADMIT Internal Medicine; ATTEND Internal Medicine
PROC: 5A09357 Assistance with Respiratory Ventilation, Less than 24 Consecutive Hours, Continuous Positive Airway Pressure (ICD-10-PCS; principal; 2025-04-16)
DX: J96.21 Acute and chronic respiratory failure with hypoxia (principal); J44.1 Chronic obstructive pulmonary disease with (acute) exacerbation; J45.901 Unspecified asthma with (acute) exacerbation; I50.32 Chronic diastolic (congestive) heart failure; Z68.42 Body mass index [BMI] 45.0-49.9, adult; I11.0 Hypertensive heart disease with heart failure; I20.9 Angina pectoris, unspecified; E11.65 Type 2 diabetes mellitus with hyperglycemia; E66.9 Obesity, unspecified; E11.40 Type 2 diabetes mellitus with diabetic neuropathy, unspecified; Z87.891 Personal history of nicotine dependence; Z99.81 Dependence on supplemental oxygen; Z96.653 Presence of artificial knee joint, bilateral; Z79.01 Long term (current) use of anticoagulants; Z79.4 Long term (current) use of insulin; Z86.718 Personal history of other venous thrombosis and embolism
CPT/HCPCS: 36415; 71045; 80048; 80061; 80305; 81003; 82550; 82553; 82962; 83036; 83605; 83880; 84145; 84439; 84443; 84484; 85025; 85379; 86705; 87340; 93005; 93923; 93970; 94070; 94640; 94660; 94664; 97161; 97166; 98960; 99291; A4606; J0456; J1650; J1815; J1940; J2270; J2919; J3475; J7512

== ENCOUNTER 2025-06-23 15:08 | Emergency (ER) | payer MEDICARE, MEDICAID ==
[~2025-06-23] VITALS: Ht 170.2 cm; Wt 122.4 kg
[~2025-06-23 15:08] MED LIST changes: +LIP40 PO; +P20 MT; +PROM6.2533 MT
[2025-06-23 15:39] VITALS: O2SAT 97
[2025-06-23] MEDS ORDERED: CIPR1DRO2 LEFT EAR (18:38)
[2025-06-23] MEDS ORDERED: BACI3.5O19 LEFTEYE (18:46)
[2025-06-23 19:10] VITALS: BP 139/76; PULSE 82; RESP 16; TEMP 36.9; O2SAT 99
[2025-07-08] MEDS ORDERED: P20 MT (09:40)
== END 2025-06-23 19:14 | disposition home or self-care (01) ==
LOC: ER 15:08
DX: T16.2XXA Foreign body in left ear, initial encounter (principal); H10.89 Other conjunctivitis; H66.92 Otitis media, unspecified, left ear; I11.0 Hypertensive heart disease with heart failure; I50.9 Heart failure, unspecified; J44.9 Chronic obstructive pulmonary disease, unspecified; E11.9 Type 2 diabetes mellitus without complications; Z99.81 Dependence on supplemental oxygen; Z96.659 Presence of unspecified artificial knee joint; Z79.899 Other long term (current) drug therapy; Z79.82 Long term (current) use of aspirin; Z79.4 Long term (current) use of insulin; Z79.02 Long term (current) use of antithrombotics/antiplatelets; W44.F9XA Other object of natural or organic material, entering into or through a natural orifice, initial encounter; Y93.89 Activity, other specified; Y92.89 Other specified places as the place of occurrence of the external cause; Y99.8 Other external cause status
CPT/HCPCS: 69200; 71045; 93005; 99284

== ENCOUNTER 2025-10-31 14:00 | Inpatient (IN) | payer MEDICARE, MEDICAID ==
[~2025-10-31] VITALS: Ht 162.6 cm; Wt 122.5 kg
[2025-10-31] VITALS (7 sets, daily range): BP systolic 169; BP diastolic 92; PULSE 97; RESP 13–22; TEMP 36.2; O2SAT 98
[~2025-10-31 14:00] MED LIST changes: +AMLO5TAB88 PO; +FURO-151 MT; -FURO40TA5 PO; +ISOS30TA12 MT; -PROM6.2533 MT
[2025-10-31] MEDS ORDERED: NITROGLYCERIN 0.4MG TABLET SL SL PRN (14:30)
[2025-10-31] MEDS: IPRATROPIUM BROMIDE (0.02%) 0.5MG/2.5ML NEB HHN SCH (14:57)
[2025-10-31] MEDS: ALBUTEROL (0.083%) 2.5MG/3ML NEB HHN SCH (14:58)
[2025-10-31 15:01] LABS: BASOPHILS % 0.8 % (0.0-2.0); EOSINOPHILS % 1.1 % (0.0-5.0); HEMATOCRIT. 38.7 % (36.0-48.0); HEMOGLOBIN. 12.4 g/dL (12.0-16.0); LYMPHOCYTES % 36.7 % (20.0-50.0); MEAN PLATELET VOLUME 8.6 fl (7.4-10.4); MONOCYTES % 11.2 % (2.0-8.0); NEUTROPHILS % 50.2 % (40.0-76.0); PLATELET 306 x1000/uL (130-400); RED BLOOD CELL COUNT 4.59 mill/uL (4.2-5.4); RED CELL DISTRIBUTION WIDTH 16.2 % (11.6-14.6)
[2025-10-31] MEDS: CEFTRIAXONE 1GM/50ML 50 ML IV ONE (15:03)
[2025-10-31] MEDS: SODIUM CHLORIDE 0.9% 1,000 ML IV ONE (15:03)
[2025-10-31] MEDS: METHYLPREDNISOLONE SOD SUCC 125MG/2ML (ACT-O-VIAL) IV ONE (15:03)
[2025-10-31 15:12] LABS: INR 1.0
[2025-10-31 15:15] LABS: CREATININE 0.8 mg/dL (0.6-1.0); UREA NITROGEN BLOOD 17 mg/dL (9-23)
[2025-10-31 15:16] LABS: PROTEIN TOTAL 6.7 g/dL (6.0-8.3); TROPONIN I HIGH SENSITIVITY 19 ng/L (3.0-34)
[2025-10-31 15:17] LABS: ASPARTATE AMINOTRANSFERASE 26 IU/L (<34); BILIRUBIN DIRECT < 0.1 mg/dL (<=3.0)
[2025-10-31 15:18] LABS: BILIRUBIN TOTAL 0.2 mg/dL (0.1-1.0)
[2025-10-31] MEDS: AZITHROMYCIN 500MG/250ML 250 ML IV ONE (16:42)
[2025-10-31 16:59] LABS: TROPONIN I HIGH SENSITIVITY 23 ng/L (3.0-34)
[2025-10-31] MEDS: IOHEXOL-350 100 ML BOTTLE ONE (17:13)
[2025-10-31] MEDS: MORPHINE SULFATE 4 MG/ML INJ (FOR IV/IM USE) IV ONE (17:35)
[2025-10-31] MEDS ORDERED: ACETAMINOPHEN 325MG TABLET PO PRN ×2 (18:00)
[2025-10-31] MEDS ORDERED: ENOXAPARIN 40MG/0.4ML SYR SUBCUT SCH (18:00)
[2025-10-31] MEDS ORDERED: ONDANSETRON HCL 4MG/2ML INJ IV PRN (18:00)
[2025-10-31] MEDS ORDERED: DEXTROSE 50% WATER 50ML SYRINGE IV PRN (18:00)
[2025-10-31] MEDS ORDERED: IPRATROPIUM/ALBUTEROL 0.5-3(2.5)MG/3ML NEB HHN PRN (18:15)
[2025-10-31] MEDS: INSULIN LISPRO 100 UNITS/ML SUBCUT SCH (18:20)
[2025-10-31] MEDS: FUROSEMIDE 40MG/4ML VIAL IV SCH (18:49)
[2025-10-31] MEDS: ENOXAPARIN 80MG/0.8ML SYR SUBCUT SCH (19:11)
[2025-10-31 19:47] LABS: TROPONIN I HIGH SENSITIVITY 18 ng/L (3.0-34)
[2025-10-31] MEDS: BLOOD SUGAR DIAGNOSTIC STRIP TEST SCH (21:00)
[2025-10-31] MEDS: ATORVASTATIN CALCIUM 40MG TABLET PO SCH (21:00)
[2025-10-31] MEDS: AMLODIPINE 5MG TABLET PO SCH (21:00)
[2025-10-31] MEDS: KETOROLAC 15MG/ML VIAL IV PRN (21:28)
[2025-10-31] MEDS: CLONIDINE 0.3MG TABLET PO SCH (21:32)
[2025-10-31] MEDS: HYDRALAZINE HCL 100MG TABLET PO SCH (21:32)
[2025-10-31] MEDS: INSULIN GLARGINE 100 UNITS/ML SUBCUT SCH (22:00)
[2025-10-31] MEDS: ZOLPIDEM TARTRATE 5MG TABLET PO PRN (22:20)
[2025-10-31] MEDS ORDERED: IOHEXOL-350 100 ML BOTTLE ONE (22:36)
[2025-11-01] VITALS (11 sets, daily range): BP systolic 121–184; BP diastolic 73–97; PULSE 81–100; RESP 16–22; TEMP 35.7–36.6; O2SAT 97–100
[2025-11-01] MEDS ORDERED: NALOXONE HCL 0.4MG/ML VIAL IV PRN (01:00)
[2025-11-01] MEDS: TRAMADOL 50MG TABLET PO PRN (01:06)
[2025-11-01] MEDS: IPRATROPIUM/ALBUTEROL 0.5-3(2.5)MG/3ML NEB HHN SCH (01:38)
[2025-11-01 07:41] LABS: BASOPHILS % 0.2 % (0.0-2.0); EOSINOPHILS % 0.0 % (0.0-5.0); HEMATOCRIT. 39.6 % (36.0-48.0); HEMOGLOBIN. 12.9 g/dL (12.0-16.0); LYMPHOCYTES % 18.7 % (20.0-50.0); MEAN PLATELET VOLUME 9.0 fl (7.4-10.4); MONOCYTES % 3.4 % (2.0-8.0); NEUTROPHILS % 77.7 % (40.0-76.0); PLATELET 313 x1000/uL (130-400); RED BLOOD CELL COUNT 4.68 mill/uL (4.2-5.4); RED CELL DISTRIBUTION WIDTH 16.1 % (11.6-14.6)
[2025-11-01 08:04] LABS: CREATININE 0.8 mg/dL (0.6-1.0); UREA NITROGEN BLOOD 12 mg/dL (9-23)
[2025-11-01] MEDS: ASPIRIN 81MG EC TABLET PO SCH (08:43)
[2025-11-01] MEDS ORDERED: AZITHROMYCIN 500MG/250ML 250 ML IV SCH ×2 (16:00)
[2025-11-01] MEDS: MORPHINE SULFATE 4 MG/ML INJ (FOR IV/IM USE) IV NR (17:31)
[2025-11-01] MEDS: LOSARTAN 50 MG TABLET PO SCH (17:45)
[2025-11-01] MEDS: MELATONIN 3MG TABLET PO SCH (21:00)
[2025-11-01] MEDS: HYDRALAZINE HCL 50MG TABLET PO SCH (22:09)
[2025-11-01 22:57] LABS: TRIGLYCERIDE 292.0 mg/dL (0-150)
[2025-11-01 22:58] LABS: LDL CHOLESTEROL 120.0 mg/dL (5-100); TROPONIN I HIGH SENSITIVITY 28 ng/L (3.0-34)
[2025-11-01 23:01] LABS: T4 FREE 1.32 ng/dL (0.89-1.76)
[2025-11-02] VITALS (11 sets, daily range): BP systolic 120–148; BP diastolic 52–91; PULSE 64–96; RESP 16–22; TEMP 36.1–37.1; O2SAT 93–99
[2025-11-02 00:44] LABS: CREATINE KINASE MB FRACTION 2.9 ng/mL (0.5-3.6)
[2025-11-02 11:10] LABS: TROPONIN I HIGH SENSITIVITY 20 ng/L (3.0-34)
[2025-11-02 11:12] LABS: CREATINE KINASE MB FRACTION 2.0 ng/mL (0.5-3.6)
[2025-11-02] MEDS ORDERED: ZOLPIDEM TARTRATE 5MG TABLET PO PRN (15:45)
[2025-11-03] VITALS: BP 140/88; PULSE 86; RESP 20; TEMP 36.7; O2SAT 98
[2025-11-03 02:12] VITALS: PULSE 71; RESP 16; O2SAT 97
[2025-11-03 04:00] VITALS: BP 142/84; PULSE 88; RESP 20; TEMP 36.7; O2SAT 96
[2025-11-03 08:00] VITALS: BP 140/81; PULSE 78; RESP 20; TEMP 36.6; O2SAT 98
[2025-11-03 11:15] VITALS: PULSE 102; RESP 20; O2SAT 98
[2025-11-03 13:58] VITALS: BP 130/79; PULSE 93; RESP 20; TEMP 97.7
== END 2025-11-03 14:48 | disposition home or self-care (01) | DRG 291 ==
LOC: ER 14:00 → 6WST 17:18 → EDBEDREQTM 17:27 → EDBEDREQ 17:27 → EDBEDREQSVC 17:27 → EDBEDREQ 17:59 → EDBEDREQTM 19:06 → EDBEDREQSVC 19:06
PROVIDERS: ADMIT Internal Medicine; ATTEND Internal Medicine
PROC: 5A09357 Assistance with Respiratory Ventilation, Less than 24 Consecutive Hours, Continuous Positive Airway Pressure (ICD-10-PCS; principal; 2025-10-31)
DX: I13.0 Hypertensive heart and chronic kidney disease with heart failure and stage 1 through stage 4 chronic kidney disease, or unspecified chronic kidney disease (principal); I50.43 Acute on chronic combined systolic (congestive) and diastolic (congestive) heart failure; J96.21 Acute and chronic respiratory failure with hypoxia; J44.1 Chronic obstructive pulmonary disease with (acute) exacerbation; Z68.42 Body mass index [BMI] 45.0-49.9, adult; Z79.01 Long term (current) use of anticoagulants; D53.9 Nutritional anemia, unspecified; E11.22 Type 2 diabetes mellitus with diabetic chronic kidney disease; I42.9 Cardiomyopathy, unspecified; E66.9 Obesity, unspecified; N18.31 Chronic kidney disease, stage 3a; I25.10 Atherosclerotic heart disease of native coronary artery without angina pectoris; R31.9 Hematuria, unspecified; M25.552 Pain in left hip; I48.0 Paroxysmal atrial fibrillation; I87.2 Venous insufficiency (chronic) (peripheral); Z96.659 Presence of unspecified artificial knee joint; Z79.4 Long term (current) use of insulin; Z79.82 Long term (current) use of aspirin; Z79.899 Other long term (current) drug therapy; Z86.718 Personal history of other venous thrombosis and embolism; Z95.0 Presence of cardiac pacemaker; Z95.5 Presence of coronary angioplasty implant and graft; Z99.81 Dependence on supplemental oxygen
CPT/HCPCS: 36415; 70492; 71045; 71275; 73502; 80048; 80061; 80076; 82550; 82553; 82962; 83036; 83605; 83880; 84145; 84439; 84443; 84484; 85025; 85379; 93005; 93306; 94070; 94640; 94660; 94664; 94760; 96365; 96375; 99291; J0456; J0696; J1650; J1815; J1885; J1938; J2270; J2919; J7030; Q9967